=== PATIENT | female | born 1940 | race Caucasian/White ===

== ENCOUNTER 2016-09-16 | Emergency (ER) | payer MEDICARE, OTHER | END 2016-09-16 16:54 | disposition home or self-care (01) ==

== ENCOUNTER 2016-09-25 11:45 | Outpatient (CLI) | payer MEDICARE, OTHER | END 2016-09-25 11:46 | DX: J03.90 Acute tonsillitis, unspecified (principal) ==

== ENCOUNTER 2016-11-26 12:41 | Outpatient (CLI) | payer MEDICARE, OTHER | END 2016-11-26 12:42 | disposition home or self-care (01) | DX: J34.2 Deviated nasal septum (principal) ==

== ENCOUNTER 2016-11-27 10:41 | Outpatient (CLI) | payer MEDICARE, OTHER | END 2016-11-27 10:42 | disposition home or self-care (01) | DX: R60.0 Localized edema (principal); M25.572 Pain in left ankle and joints of left foot ==

== ENCOUNTER 2016-12-02 20:34 | Outpatient (CLI) | payer MEDICARE, OTHER | END 2016-12-02 20:35 | disposition home or self-care (01) | DX: R60.0 Localized edema (principal) ==

== ENCOUNTER 2016-12-11 14:57 | Outpatient (CLI) | payer MEDICARE, OTHER | END 2016-12-11 14:58 | disposition home or self-care (01) | DX: Z00.00 Encounter for general adult medical examination without abnormal findings (principal); J20.9 Acute bronchitis, unspecified; R05 Cough; Z79.899 Other long term (current) drug therapy ==

== ENCOUNTER 2016-12-12 08:05 | Outpatient (CLI) | payer MEDICARE, OTHER ==
[2016-12-12] MEDS ORDERED: IOPAMIDOL-300 100 ML VIAL IVP ONE (09:02)
== END 2016-12-12 08:06 | disposition home or self-care (01) ==
DX: J43.9 Emphysema, unspecified (principal); J98.4 Other disorders of lung
CPT/HCPCS: 71260; Q9967

== ENCOUNTER 2016-12-26 09:00 | Outpatient (CLI) | payer MEDICARE, OTHER ==
[2016-12-26] MEDS ORDERED: ALBUTEROL NEB 2.5 MG/3 ML INH ONE (09:30)
== END 2016-12-26 09:01 | disposition home or self-care (01) ==
LOC: RT 09:00
PROVIDERS: ATTEND Physician Assistant Medical
DX: J45.998 Other asthma (principal)
CPT/HCPCS: 94060; 94729; J7613

== ENCOUNTER 2017-03-03 13:48 | Outpatient (CLI) | payer MEDICARE, OTHER ==
--- NOTE | 2017-03-04 08:26 | DEXA Report ---
DEXA SCAN: 03/03/2017 CLINICAL INDICATION: Postmenopausal. TECHNIQUE: Dual energy x-ray absorptiometry (DXA) was performed on a [employer] system. Regions measured are the AP spine, femoral neck, and, if needed, forearm. COMPARISON: None. In accordance with the International Society for Clinical Densitometry (ISCD) guidelines, data from previous exams may be reanalyzed using current recommendations and techniques. This is done to allow a more accurate basis for comparison with the current study. FINDINGS: The data for the lumbar spine is as follows: REGION BMD (g/cm/cm) T-SCORE Z-SCORE L1 1.082 -0.4 0.9 L2 1.089 -0.9 0.3 L3 1.070 -1.1 0.2 L4 1.041 -1.3 -0.1 TOTAL 1.068 -0.9 0.3 NOTE: All evaluable vertebrae are used for classification. The data for the hip is as follows: REGION BMD (g/cm/cm) T-SCORE Z-SCORE Neck 0.813 -1.6 0.1 TOTAL 0.888 -1.0 0.6 NOTE: The femoral neck or total proximal femur, whichever is lowest, is used for classification. IMPRESSION: THE WHO CLASSIFICATION BASED ON THE INTERNATIONAL REFERENCE STANDARD IS OSTEOPENIA (REFERENCE LEFT FEMORAL NECK). THE FRACTURE RISK IS INCREASED. RECOMMENDATION: Patients with diagnosis of osteoporosis or osteopenia should have regular bone mineral density assessment. For those eligible for Medicare, routine testing is allowed once every 2 years. Testing frequency can be increased for patients who have rapidly progressing disease or for those who are receiving medical therapy to restore bone mass. COMMENT: World Health Organization (WHO) definitions for osteoporosis and osteopenia: NORMAL BMD: T-score at -1.0 or higher, fracture risk is low. OSTEOPENIA BMD: T-score between -1.0 and -2.5, fracture risk is increased. OSTEOPOROSIS BMD: T-score at -2.5 or lower, fracture risk high. National Osteoporosis Foundation recommends: 1. Obtain adequate dietary calcium (at least 1200 mg per day) and vitamin D (400 -800 international units per day). 2. Participate, as appropriate, in regular weightbearing and muscle- strengthening exercise. 3. Avoid tobacco use and reduce alcohol and caffeine intake. 4. For more detailed information see the website at www.NOF.org. MTDD
== END 2017-03-03 13:49 | disposition home or self-care (01) ==
LOC: DI 13:48
PROVIDERS: ATTEND Physician Assistant Medical
DX: M85.88 Other specified disorders of bone density and structure, other site (principal)
CPT/HCPCS: 77080

== ENCOUNTER 2017-03-17 16:10 | Outpatient (CLI) | payer MEDICARE, OTHER ==
[2017-03-17 13:11] LABS: CREATININE 0.6 mg/dL (0.4-1.0)
== END 2017-03-17 16:11 | disposition home or self-care (01) ==
LOC: LAB.WCP 16:10
PROVIDERS: ATTEND Family Medicine
DX: R22.9 Localized swelling, mass and lump, unspecified (principal)
CPT/HCPCS: 36415; 82565

== ENCOUNTER 2017-07-07 13:21 | Outpatient (CLI) | payer MEDICARE, OTHER ==
--- NOTE | 2017-07-09 17:43 | Mammography Report ---
DIGITAL SCREENING MAMMOGRAM: 07/07/2017 CLINICAL INDICATION: A 77-year-old with family history of breast cancer. COMPARISON: 09/2015, 11/2010, 02/2008. TECHNIQUE: Routine CC and MLO projections as well as bilateral laterally exaggerated craniocaudal vi ews were obtained of the breasts. The breasts again demonstrate heterogeneously dense fibroglandular parenchyma bilaterally. Coarse an d punctate, typically benign calcifications are present. Postoperative changes in the left breast ar e stable. No suspicious masses, clustered microcalcifications, or regions of architectural distortio n are identified. IMPRESSION: BENIGN FINDINGS. RECOMMENDATION: ROUTINE ANNUAL SCREENING UNLESS OTHERWISE CLINICALLY INDICATED. BIRADS CATEGORY: 2, BENIGN FINDINGS. STANDARD QUALIFYING STATEMENTS 1. This examination was reviewed with the aid of Computed-Aided Detection (CAD). 2. A negative or benign imaging report should not delay biopsy if clinically suspicious findings are present. Consider surgical consultation if warranted. More than 5% of cancers are not identified b y imaging. 3. Dense breasts may obscure an underlying neoplasm. JOB #: [id number] EXT JOB #:[id number]
== END 2017-07-07 13:22 | disposition home or self-care (01) ==
LOC: DI.N 13:21
PROVIDERS: ATTEND Physician Assistant Medical
DX: Z12.31 Encounter for screening mammogram for malignant neoplasm of breast (principal); Z80.3 Family history of malignant neoplasm of breast
CPT/HCPCS: 77067

== ENCOUNTER 2017-10-13 09:47 | Outpatient (CLI) | payer MEDICARE, OTHER ==
[2017-10-13 13:10] LABS: BASOPHILS % (AUTO) 0.5 %; EOSINOPHILS # (AUTO) 0.2 10^3/uL (0.0-0.7); EOSINOPHILS % (AUTO) 2.7 %; HGB - HEMOGLOBIN 13.4 g/dL (12.0-16.0); LYMPHOCYTES # (AUTO) 2.2 10^3/uL (1.5-3.5); LYMPHOCYTES % (AUTO) 30.9 %; MEAN CORPUSCULAR HGB CONC 33.6 g/dL (32.0-36.0); MEAN CORPUSCULAR VOLUME 89.1 fL (81.0-99.0); MEAN PLATELET VOLUME 9.3 fL (7.9-10.8); MONOCYTES # (AUTO) 0.7 10^3/uL (0.0-1.0); MONOCYTES % (AUTO) 9.8 %; NEUTROPHILS % (AUTO) 56.1 %; PLT - PLATELET COUNT 186 10^3/uL (130-450); RED BLOOD COUNT 4.46 10^6/uL (4.20-5.40); RED CELL DISTRIBUTION WIDTH 14.2 % (12.0-15.0); WHITE BLOOD COUNT 7.1 x10^3/uL (4.8-10.8)
[2017-10-13 13:46] LABS: ALBUMIN 3.8 g/dL (3.2-5.5); ALBUMIN/GLOBULIN RATIO 1.3 (1.0-2.2); ALKALINE PHOSPHATASE 40 IU/L (42-121); ALT ALANINE AMINOTRANSFERASE 24 IU/L (10-60); AST ASPARTATE AMINOTRANSFERASE 26 IU/L (10-42); BILIRUBIN,TOTAL 0.6 mg/dL (0.2-1.0); BUN - BLOOD UREA NITROGEN 18 mg/dL (6-20); CALCIUM 9.1 mg/dL (8.5-10.3); CARBON DIOXIDE - CO2 29 mmol/L (21-32); CHLORIDE 102 mmol/L (101-111); CHOL/HDL RATIO 3.9 (<4.4); CHOLESTEROL 147 mg/dL; CREATININE 0.6 mg/dL (0.4-1.0); GFR - MDRD 97 (>89); GLUCOSE 102 mg/dL (70-100); HDL CHOLESTEROL 38 mg/dL; LDL CHOLESTEROL,CALCULATED 81 mg/dL; LDL/HDL RATIO 2.1 (<4.4); SODIUM 137 mmol/L (135-145); TOTAL PROTEIN 6.7 g/dL (6.7-8.2); VLDL CHOLESTEROL 28 mg/dL
== END 2017-10-13 09:48 | disposition home or self-care (01) ==
LOC: LAB.WCP 09:47
PROVIDERS: ATTEND Family Medicine
DX: R07.9 Chest pain, unspecified (principal)
CPT/HCPCS: 36415; 80053; 80061; 83721; 85025

== ENCOUNTER 2017-10-23 09:57 | Outpatient (CLI) | payer MEDICARE, OTHER ==
[2017-10-23] MEDS ORDERED: REGADENOSON 0.4 MG/5 ML SYRINGE IVP ONE ×2 (10:26→12:46)
--- NOTE | 2017-10-23 16:29 | Nuclear Medicine Report ---
EXAM: NUCLEAR MEDICINE MYOCARDIAL PERFUSION STRESS AND REST EXAM DATE: 10/23/2017 01:16 PM. CLINICAL HISTORY: Chest pain, COPD. COMPARISON: None. TECHNIQUE: Patient given 8.4 mCi technetium 99m sestamibi IV for the rest portion of the study. Next, non-gated cardiac SPECT scintigraphy performed with multiplanar reformats. After an appropriate delay, patient given 0.4 mg Lexiscan IV for pharmacologic stress. Next, patient given 41.5 mCi technetium 99m sestamibi IV. Cardiac gated SPECT scintigraphy performed with multiplan ar reformats, wall motion analysis, and left ventricular ejection fraction estimation. FINDINGS: There is uniform radiopharmaceutical activity in the left ventricular myocardium on the stress images . There is some mild decreased activity in the inferior wall and anteroseptal region on the rest imag es, likely artifact. No fixed or reversible stress-related perfusion defects. Wall motion is uniform. Left ventricular ejection fraction estimated at 75%. IMPRESSION: 1. No scintigraphic evidence of inducible ischemia or infarct. 2. Left ventricular ejection fraction estimated at 75%. [facility] Referring Provider Line: [phone] SITE ID: [id number]
[2017-10-23 16:51] VITALS: BP 148/82
--- NOTE | 2017-10-24 14:36 | CARDIAC PROCEDURE NOTE ---
DATE OF SERVICE: 10/23/2017 Physician: LEYDA Samaniego PRIMARY CARE PHYSICIAN: Dr. Darlene Powell PROCEDURE: Pharmacologic cardiac stress test. PROCEDURE SYMPTOMS: Chest pain and COPD. CARDIAC RISK FACTORS INCLUDE: Age, hypertension, and former smoker. The patient has had previous cardiac procedures. CLINICAL HISTORY: A 77-year-old female without known coronary artery disease. She has no current symptoms. There were no medications held. INITIAL RESTING VITAL SIGNS: Blood pressure 148/82, heart rate 67, height 62 inches, weight 184 pounds, BMI 33.4. PROCEDURE AND FINDINGS: Patient identity and date verified, consent signed, pharmaceutical check. Pharmacologic stress testing was performed with Lexiscan at a dose of 0.4 mg over 10 seconds. The heart rate increased to 95 beats per minute from the infusion. Blood pressure response was normal during the stress procedure. The patient developed mild infusion-related symptoms, which included sensation of rapid heart rate and neck pressure. These resolved spontaneously. The resting electrocardiogram demonstrated normal sinus rhythm with no ST or T-wave changes. There was no ST-segment depression with stress. There was 1 PVC. FINAL IMPRESSIONS 1. Negative electrocardiogram for ischemia in the setting of vasodilator stress. 2. Nondiagnostic stress test for angina. 3. Single premature ventricular contraction. 4. Await myocardial perfusion report. TD: 10/23/2017 15:21 MTDD
== END 2017-10-23 09:58 | disposition home or self-care (01) ==
LOC: DI 09:57
PROVIDERS: ATTEND Family Medicine
DX: R07.9 Chest pain, unspecified (principal); J44.9 Chronic obstructive pulmonary disease, unspecified; I10 Essential (primary) hypertension; Z87.891 Personal history of nicotine dependence
CPT/HCPCS: 78452; 93017; A9500; J2785

== ENCOUNTER 2017-11-25 07:10 | Outpatient (CLI) | payer MEDICARE, OTHER ==
[2017-11-25 13:00] LABS: ALBUMIN 3.8 g/dL (3.2-5.5); ALBUMIN/GLOBULIN RATIO 1.4 (1.0-2.2); BILIRUBIN,TOTAL 0.5 mg/dL (0.2-1.0); CALCIUM 8.8 mg/dL (8.5-10.3); CREATININE 0.4 mg/dL (0.4-1.0); TOTAL PROTEIN 6.5 g/dL (6.7-8.2)
== END 2017-11-25 07:11 | disposition home or self-care (01) ==
LOC: LAB.WCP 07:10
PROVIDERS: ATTEND Family Medicine
DX: M89.9 Disorder of bone, unspecified (principal)
CPT/HCPCS: 36415; 80053

== ENCOUNTER 2018-06-18 08:32 | Outpatient (CLI) | payer MEDICARE, OTHER ==
--- NOTE | 2018-06-19 09:24 | DEXA Report ---
Reason: BONE DISORDER Procedure Date: 06/18/2018 Accession Number: [id number] / [id number] Procedure: DEX - Dexa Spine and/or Hip CPT Code: FULL RESULT: EXAM: Dexa Spine and/or Hip DATE: 06/18/2018 9:57 AM CLINICAL HISTORY: BONE DISORDER TECHNIQUE: Dual energy x-ray absorptiometry (DXA) was performed on a [employer] System. Regions measured are the AP Spine, femoral neck, and if needed forearm. COMPARISON: None. In accordance with the International Society for Clinical Densitometry (ISCD) guidelines, data from previous exams may be reanalyzed using current recommendations and techniques. This is done to allow a more accurate basis for comparison with the current study. FINDINGS: The data for the lumbar spine is as follows: BMD (g/cm/cm) T-SCORE Z-SCORE REGION L1 L2 0.985 -1.8 -0.5 L3 1.003 -1.6 -0.4 L4 0.940 -2.2 -0.9 TOTAL 0.974 -1.9 -0.6 NOTE: All evaluable vertebrae are used for classification The data for the hip is as follows: BMD (g/cm/cm) T-SCORE Z-SCORE REGION Neck 0.735 -2.2 -0.4 TOTAL 0.893 -0.9 0.6 NOTE: The femoral neck or total proximal femur, whichever is lowest, is used for classification. DXA RESULTS SUMMARY: Spine SCAN DATE AGE BMD CHANGE VS CHANGE VS PREVIOUS PREVIOUS % [birth year]18[birth year]2018 [age] 0.974 -0.090* -8.5* 03/03/2017 [age] 1[age]064 * Denotes significant change at the 95% confidence level. Denotes dissimilar scan types or analysis methods. DXA RESULTS SUMMARY: Hip SCAN DATE AGE BMD CHANGE VS CHANGE VS PREVIOUS PREVIOUS % [birth year]2018 [age] 0.893 0.005 0.6 03[birth year]03[birth year]2017 [age] 0.888 * Denotes significant change at the 95% confidence level. Denotes dissimilar scan types or analysis methods. IMPRESSION: THE WHO CLASSIFICATION BASED ON THE INTERNATIONAL REFERENCE STANDARD IS OSTEOPENIA. THE FRACTURE RISK IS INCREASED. RECOMMENDATION: Patients with diagnosis of osteoporosis or osteopenia should have regular bone mineral density assessment. For those eligible for Medicare, routine testing is allowed once every 2 years. Testing frequency can be increased for patients who have rapidly progressing disease or for those who are receiving medical therapy to restore bone mass. COMMENT: World Health Organization (WHO) definitions for osteoporosis and osteopenia: NORMAL BMD: T-score at -1.0 or higher, fracture risk is low OSTEOPENIA BMD: T-score between -1.0 and -2.5, fracture risk is increased. OSTEOPOROSIS BMD: T-score at -2.5 or lower, fracture risk is high. National Osteoporosis Foundation recommends: 1. Obtain adequate dietary calcium (at least 1200 mg per day) and vitamin D (400-800 international units per day). 2. Participate, as appropriate, in regular weightbearing and muscle-strengthening exercise. 3. Avoid tobacco use and reduce alcohol and caffeine intake. 4. For more detailed information see the website at www.NOF.org.
== END 2018-06-18 08:33 | disposition home or self-care (01) ==
LOC: DI 08:32
PROVIDERS: ATTEND Physician Assistant Medical
DX: M85.89 Other specified disorders of bone density and structure, multiple sites (principal)
CPT/HCPCS: 77080

== ENCOUNTER 2018-07-14 13:12 | Outpatient (CLI) | payer MEDICARE, OTHER ==
--- NOTE | 2018-07-15 08:25 | Mammography Report ---
Reason: SCREENING MAMMO Procedure Date: 07/14/2018 Accession Number: [id number] / [id number] Procedure: MGN - Screening Mammo Dig Bilat CPT Code: FULL RESULT: EXAM: Screening Mammo Dig Bilat DATE: 07/14/2018 1:48 PM CLINICAL HISTORY: Screening encounter. History of thoracotomy with incision extending into the left breast and axilla. Family history of breast cancer in the mother in her 60s. TECHNIQUE: Bilateral CC, laterally exaggerated CC, MLO views were obtained. COMPARISON: 07/07/2017 through 11/14/2010. FINDINGS: The breasts demonstrate heterogeneously dense fibroglandular parenchyma bilaterally. Postsurgical changes are seen in the left breast. Typically benign coarse right breast calcifications and typically benign bilateral vascular calcifications are noted. No suspicious masses, clustered microcalcifications, or regions of architectural distortion are identified. IMPRESSION: Benign findings RECOMMENDATION: Routine annual screening unless otherwise clinically indicated. BIRADS CATEGORY 2: Benign findings STANDARD QUALIFYING STATEMENTS: 1. This examination was reviewed with the aid of Computer-Aided Detection (CAD). 2. A negative or benign imaging report should not preclude biopsy if clinically suspicious findings are present. 3. Dense breasts may obscure an underlying neoplasm. 4. This examination was reviewed without the aid of 3D breast imaging (tomosynthesis).
== END 2018-07-14 13:13 | disposition home or self-care (01) ==
LOC: DI.N 13:12
DX: Z12.31 Encounter for screening mammogram for malignant neoplasm of breast (principal); Z80.3 Family history of malignant neoplasm of breast
CPT/HCPCS: 77067

== ENCOUNTER 2019-09-24 07:29 | Outpatient (CLI) | payer MEDICARE, OTHER ==
[2019-09-24 13:27] LABS: BASOPHILS % (AUTO) 0.6 %; EOSINOPHILS # (AUTO) 0.6 10^3/uL (0.0-0.7); EOSINOPHILS % (AUTO) 9.2 %; HGB - HEMOGLOBIN 13.4 g/dL (12.0-16.0); LYMPHOCYTES # (AUTO) 1.8 10^3/uL (1.5-3.5); LYMPHOCYTES % (AUTO) 28.2 %; MEAN CORPUSCULAR HEMOGLOBIN 28.6 pg (27.0-31.0); MEAN CORPUSCULAR HGB CONC 31.9 g/dL (32.0-36.0); MEAN CORPUSCULAR VOLUME 89.7 fL (81.0-99.0); MEAN PLATELET VOLUME 11.1 fL (7.9-10.8); MONOCYTES # (AUTO) 0.7 10^3/uL (0.0-1.0); MONOCYTES % (AUTO) 10.3 %; NEUTROPHILS # (AUTO) 3.3 10^3/uL (1.5-6.6); NEUTROPHILS % (AUTO) 51.2 %; PLT - PLATELET COUNT 208 10^3/uL (130-450); RED BLOOD COUNT 4.68 10^6/uL (4.20-5.40); RED CELL DISTRIBUTION WIDTH 12.9 % (12.0-15.0); WHITE BLOOD COUNT 6.5 x10^3/uL (4.8-10.8)
[2019-09-24 14:01] LABS: HB2 TOTAL 13.8 g/dL; HEMOGLOBIN A1C 0.54 g/dL; HEMOGLOBIN A1C % 5.7 % (4.6-6.2)
[2019-09-24 14:03] LABS: ALBUMIN 3.7 g/dL (3.2-5.5); ALBUMIN/GLOBULIN RATIO 1.1 (1.0-2.2); ALKALINE PHOSPHATASE 47 IU/L (42-121); ALT ALANINE AMINOTRANSFERASE 21 IU/L (10-60); AST ASPARTATE AMINOTRANSFERASE 21 IU/L (10-42); BILIRUBIN,TOTAL 0.5 mg/dL (0.2-1.0); BUN - BLOOD UREA NITROGEN 19 mg/dL (6-20); CALCIUM 9.3 mg/dL (8.5-10.3); CARBON DIOXIDE - CO2 29 mmol/L (21-32); CHLORIDE 103 mmol/L (101-111); CHOL/HDL RATIO 3.9 (<4.4); CHOLESTEROL 136 mg/dL; CREATININE 0.8 mg/dL (0.4-1.0); GFR - MDRD 69 (>89); GLUCOSE 114 mg/dL (70-100); HDL CHOLESTEROL 35 mg/dL; LDL CHOLESTEROL,CALCULATED 88 mg/dL; LDL/HDL RATIO 2.5 (<4.4); SODIUM 140 mmol/L (135-145); TOTAL PROTEIN 7.1 g/dL (6.7-8.2); VLDL CHOLESTEROL 13 mg/dL
== END 2019-09-24 23:59 | disposition home or self-care (01) ==
LOC: LAB.WCP 07:29
PROVIDERS: ATTEND Family Medicine
DX: I10 Essential (primary) hypertension (principal); E78.5 Hyperlipidemia, unspecified; E66.9 Obesity, unspecified
CPT/HCPCS: 36415; 80053; 80061; 83036; 83721; 84443; 85025

== ENCOUNTER 2019-09-28 19:57 | Outpatient (CLI) | payer MEDICARE, OTHER ==
--- NOTE | 2019-10-01 22:50 | Ultrasound Report ---
Reason: INTERMITTENT CLAUDICATION Procedure Date: 09/28/2019 Accession Number: [id number] / [id number] Procedure: US - Duplex Lwr Ext Arterial LT CPT Code: Final Report FULL RESULT: EXAM: LEFT LOWER EXTREMITY ARTERIAL DOPPLER ULTRASOUND EXAM DATE: 09/28/2019 09:00 PM. CLINICAL HISTORY: Intermittent claudication. Risk factors: Hypertension, ex-smoker, coronary artery disease and peripheral vascular disease. COMPARISON: None. TECHNIQUE: Real-time sonographic vascular imaging was performed by the foundry patternmaker, utilizing color-flow, Doppler flow, and spectral analysis. Multiple product representative static images were saved for review. FINDINGS: Calcified plaque noted. Left Leg: PHYS THER: PSV 146 cm/sec. Biphasic waveform. PSFA: PSV 166 cm/sec. Biphasic waveform. MSFA: PSV 62 cm/sec. Biphasic Waveform. DSFA: PSV 99 cm/sec. Biphasic waveform. PFA: PSV 60 cm/sec. Monophasic waveform. POP: PSV 56 cm/sec. Monophasic waveform. SHINE: PSV 62 cm/sec. Monophasic waveform. PHYS THER: PSV 36 cm/sec. Monophasic waveform. PER: PSV 46 cm/sec. Monophasic waveform. DPA: PSV 31 cm/sec. Monophasic waveform. IMPRESSION: No evidence for hemodynamically significant stenosis or occlusion. See above. [facility]
== END 2019-09-28 19:58 | disposition home or self-care (01) ==
LOC: DI 19:57
PROVIDERS: ATTEND Family Medicine
DX: I73.9 Peripheral vascular disease, unspecified (principal)

== ENCOUNTER 2019-12-23 17:08 | Emergency (ER) | payer MEDICARE, OTHER ==
--- NOTE | 2019-12-23 18:15 | ED Physician Documentation ---
PD HPI LOWER EXT INJURY - Stated complaint Stated Complaint: RT LOWER LEG SWELLING / PX - Chief complaint Chief Complaint: Ext Problem - History obtained from History obtained from: Patient (She is a chronic mild wound of the right ankle. Starting last night her lower leg became more painful causing her to lose some sleep and more red. No shortness of breath or chest pain. She has a history of DVT with , remotely.) Review of Systems Constitutional: reports: Reviewed and negative Cardiac: reports: Reviewed and negative Respiratory: reports: Reviewed and negative PD PAST MEDICAL HISTORY - Past Medical History Past Medical History: Yes Cardiovascular: Hypertension, Other Respiratory: COPD GI: GERD, Other : Incontinence HEENT: Chronic sinusitis Musculoskeletal: Osteoporosis, Chronic back pain - Past Surgical History Past Surgical History: Yes General: Other Ortho: Other HEENT: Cataracts - Present Medications Home Medications: Ambulatory Orders Medication Instructions Recorded Confirmed Acetaminophen [Tylenol Extra 500 mg PO PRN PRN 04/19/16 12/04/17 Strength] Aspirin [Aspir-Low] 81 mg PO DAILY 04/19/16 12/04/17 Spencer/D3/Mag11/Zinc/Senior Sous Chef/Jarrell/Bor 1,200 mg PO DAILY 04/19/16 12/04/17 [Caltrate 600+D Plus Tablet] Cyanocobalamin (Vitamin B-12) 1,000 mg PO DAILY 04/19/16 12/04/17 [Vitamin B-12] Multivitamin [Multivitamins] 1 tab PO DAILY 04/19/16 12/04/17 Lafe-3S/Dha/Epa/Fish Oil [Fish 1 tab PO BID 04/19/16 12/04/17 Oil 1,200 mg Softgel] atenoloL [Atenolol] 25 mg PO DAILY 04/19/16 12/04/17 hydroCHLOROthiazide [Hydrodiuril] 25 mg PO DAILY 04/19/16 12/04/17 Cephalexin [Keflex] 500 mg PO Q6H #40 capsule 12/23/19 Meloxicam 15 mg PO DAILY 12/23/19 12/23/19 Mirabegron [Myrbetriq] 25 mg DAILY 12/23/19 12/23/19 Montelukast [Singulair] 10 mg DAILY 12/23/19 12/23/19 Pantoprazole [Protonix] 40 mg PO DAILY 12/23/19 12/23/19 - Allergies Allergies/Adverse Reactions: Allergies Allergy/AdvReac Type Severity Reaction Status Date / Time Sulfa (Sulfonamide Allergy Rash Verified 12/23/19 17:17 Antibiotics) - Social History Does the pt smoke?: No Smoking Status: Never smoker Does the pt drink ETOH?: No Does the pt have substance abuse?: No PD ED PE NORMAL - Vitals Vital signs reviewed: Yes - General General: Alert and oriented X 3, No acute distress - Cardiac Cardiac: RRR, No murmur - Respiratory Respiratory: No respiratory distress, Clear bilaterally - Abdomen Abdomen: Non tender - Extremities Extremities: Other (She has what looks like cellulitis of the ankle and calf of the right leg without tenderness or significant asymmetry.) - Neuro Neuro: Alert and oriented X 3, Normal speech Results - Vitals Vitals: Vital Signs - 24 hr 12/23/19 17:14 Temperature 36.6 C Heart Rate 71 Respiratory 18 Rate Blood Pressure 197/74 H O2 Saturation 99 Oxygen O2 Source Room air - Rads (name of study) DVT sono Radiology: Prelim report reviewed (neg for DVT) Departure - Departure Disposition: 01 Home, Self Care Clinical Impression: Pain of lower extremity Qualifiers: Laterality: right Qualified Code(s): M79.604 - Pain in right leg Cellulitis Qualifiers: Site of cellulitis: extremity Site of cellulitis of extremity: lower extremity Laterality: right Qualified Code(s): L03.115 - Cellulitis of right lower limb Condition: Good Record reviewed to determine appropriate education?: Yes Instructions: Cellulitis Dc Prescriptions: Cephalexin [Keflex] 500 mg PO Q6H #40 capsule Comments: Follow-up with your doctor, either tomorrow or Friday for recheck. Return if worsening or if you run a fever. Your blood pressure was elevated today on check into the emergency department. This does not mean that you have hypertension, it is a common phenomenon to come to the emergency department and have elevated blood pressure. I recommend that you see your primary care physician within the week to have it rechecked when you are feeling better.
[2019-12-23] MEDS ORDERED: cephALEXin 250 MG CAPSULE PO STA (19:05)
--- NOTE | 2019-12-23 19:14 | Ultrasound Report ---
Reason: leg pain Procedure Date: 12/23/2019 Accession Number: [id number] / [id number] Procedure: US - Duplex Ext Veins Right CPT Code: Final Report FULL RESULT: EXAM: RIGHT LOWER EXTREMITY VENOUS ULTRASOUND EXAM DATE: 12/23/2019 06:59 PM. CLINICAL HISTORY: Leg pain. COMPARISON: None. TECHNIQUE: Real-time sonographic vascular imaging was performed by the cold saw operator through the lower extremity utilizing both color-flow and Doppler spectral analysis. Multiple associate financial representative static images were saved for review. FINDINGS: Common Femoral Vein (CFV): Normal. CFV-GSV Junction: Normal. Profunda Femoral Vein (PFV): Normal. Femoral Vein (FV) Prox: Normal. Femoral Vein (FV) Mid: Normal. Femoral Vein (FV) Dist: Normal. Popliteal Vein: Normal. Posterior Tibial Veins: Normal. Peroneal Veins: Limited assessment. Contralateral Side CFV: Normal. Other: Posterior medial knee fluid collection measuring approximately 2 x 1.3 x 0.9 cm. IMPRESSION: Limited assessment of the peroneal veins, otherwise no sonographic evidence of DVT within the right lower extremity. Posterior medial knee fluid collection measuring approximately 2 x 1.3 x 0.9 cm. [facility]
[2019-12-23 19:19] VITALS: BP 169/67
== END 2019-12-23 19:19 | disposition home or self-care (01) ==
LOC: ED 17:08
DX: L03.115 Cellulitis of right lower limb (principal); I10 Essential (primary) hypertension
CPT/HCPCS: 93971; 99283; 99284; A9270

== ENCOUNTER 2020-01-05 11:01 | Outpatient (CLI) | payer MEDICARE, OTHER ==
[2020-01-07 13:25] LABS: ALBUMIN 3.9 g/dL (3.8-4.8); ALPHA 1 GLOBULIN 0.3 g/dL (0.2-0.3); ALPHA 2 GLOBULIN 0.8 g/dL (0.5-0.9); BETA 1 GLOBULIN 0.5 g/dL (0.4-0.6); BETA 2 GLOBULIN 0.6 g/dL (0.2-0.5)
== END 2020-01-05 23:59 | disposition home or self-care (01) ==
LOC: LAB.WCP 11:01
PROVIDERS: ATTEND Family Medicine
DX: G62.9 Polyneuropathy, unspecified (principal)
CPT/HCPCS: 36415; 81599; 82570; 82607; 84155; 84156; 84165; 84166; 85651

== ENCOUNTER 2020-01-11 08:00 | Outpatient (CLI) | payer MEDICARE, OTHER ==
[2020-01-13 15:49] LABS: ALBUMIN 3.7 g/dL (3.8-4.8); ALPHA 1 GLOBULIN 0.3 g/dL (0.2-0.3); ALPHA 2 GLOBULIN 0.8 g/dL (0.5-0.9); BETA 1 GLOBULIN 0.5 g/dL (0.4-0.6); BETA 2 GLOBULIN 0.5 g/dL (0.2-0.5); GAMMA GLOBULIN 1.1 g/dL (0.8-1.7)
== END 2020-01-11 23:59 | disposition home or self-care (01) ==
LOC: LAB.WCP 08:00
PROVIDERS: ATTEND Family Medicine
DX: D47.2 Monoclonal gammopathy (principal)
CPT/HCPCS: 36415; 81599; 82784; 83883; 84155; 84165; 86334; 86335

== ENCOUNTER 2020-01-18 08:18 | Outpatient (CLI) | payer MEDICARE, OTHER ==
--- NOTE | 2020-01-18 11:54 | DEXA Report ---
Reason: POST MENOPAUSAL STATUS Procedure Date: 01/18/2020 Accession Number: [id number] / [id number] Procedure: DEX - Dexa Spine and/or Hip CPT Code: Final Report FULL RESULT: PROCEDURE: Dexa Spine and/or Hip INDICATIONS: POST MENOPAUSAL STATUS TECHNIQUE: Dual energy x-ray absorptiometry (DXA) was performed on a [employer] System. Regions measured are the AP Spine, femoral neck, and if needed forearm. COMPARISON: None. FINDINGS: Lumbar Spine: Bone Mineral Density 0.999 g/cm/cm,T score -1.5 Left Hip: Bone Mineral Density 0.924 g/cm/cm,T score -0.7 Left Femoral Neck: Bone Mineral Density 0.794 g/cm/cm, T score -1.8 (T score greater or equal to -1.0: NORMAL) (T score from -1.1 to -2.4: OSTEOPENIA) (T score less than or equal to -2.5 to: OSTEOPOROSIS) Impression: Osteopenia of the lumbar spine and the left femoral neck. Patients with diagnosis of osteoporosis or osteopenia should have regular bone mineral density assessment. For those eligible for Medicare, routine testing is allowed once every 2 years. Testing frequency can be increased for patients who have rapidly progressing disease or for those who are receiving medical therapy to restore bone mass. Reviewed by: Patricia Matamoros MD on 01/18/2020 11:52 AM PDT Approved by: Patricia Matamoros MD on 01/18/2020 11:52 AM PDT Station ID: [id number]
== END 2020-01-18 08:19 | disposition home or self-care (01) ==
LOC: DI 08:18
PROVIDERS: ATTEND Family Medicine
DX: M85.89 Other specified disorders of bone density and structure, multiple sites (principal)
CPT/HCPCS: 77080

== ENCOUNTER 2020-02-19 09:56 | Outpatient (CLI) | payer MEDICARE, OTHER ==
--- NOTE | 2020-02-19 19:21 | CT Report ---
PROCEDURE: CHEST WO INDICATIONS: CHRONIC COUGH, COPD TECHNIQUE: Noncontrast 5 mm thick sections acquired from the pulmonary apices to the posterior costophrenic angl es. 7 mm thick coronal and sagittal MIP reformats were then acquired. For radiation dose reduction, the following was used: automated exposure control, adjustment of mA and/or kV according to patient size. COMPARISON: Chest CT with contrast, 12/12/2016 FINDINGS: Image quality: Excellent. Lungs and pleura: There is moderate emphysema. Bilateral subpleural septal thickening and early pulm onary fibrosis. There is subpleural scars in lingula. No acute air space opacities. No pleural effus ions or pneumothorax. Central and peripheral airways are patent and normal in caliber. Mediastinum: Heart size is normal. No pericardial effusion. No mediastinal adenopathy by size crit eria. Thoracic aorta and central pulmonary arteries are normal in size. Esophagus is normal in minor leo. No hiatal hernia. Bones and chest wall: No suspicious bony lesions. No vertebral body compression fractures. No axil lana or supraclavicular adenopathy by size criteria. The thyroid is normal in size. Abdomen: There is a 1.9 x 1.5 cm cyst in the left hepatic lobe adjacent to the srikanth vein. Visualize d upper abdominal solid organs and bowel loops appear normal in the absence of contrast. IMPRESSION: 1. Moderate emphysema. 2. Bilateral subpleural septal thickening and early pulmonary fibrosis. 3. Subpleural scars in the lingula. Reviewed by: Manuel Goss MD on 02/19/2020 7:20 PM PDT Approved by: Manuel Goss MD on 02/19/2020 7:20 PM PDT Station ID: [id number]
== END 2020-02-19 09:57 | disposition home or self-care (01) ==
LOC: DI 09:56
PROVIDERS: ATTEND Family Medicine
DX: J43.9 Emphysema, unspecified (principal); J84.10 Pulmonary fibrosis, unspecified
CPT/HCPCS: 71250

== ENCOUNTER 2020-05-12 21:27 | Emergency (ER) | payer MEDICARE, OTHER ==
[2020-05-12 21:54] LABS: BILIRUBIN,URINE NEGATIVE (NEGATIVE); GLUCOSE, URINE (UA) NEGATIVE (NEGATIVE); KETONES,URINE (UA) NEGATIVE (NEGATIVE); LEUKOCYTE ESTERASE, URINE NEGATIVE (NEGATIVE); NITRITE,URINE NEGATIVE (NEGATIVE); OCCULT BLOOD,URINE NEGATIVE (NEGATIVE); PH,URINE 7.5 PH (5.0-7.5); PROTEIN,URINE NEGATIVE (NEGATIVE); UROBILINOGEN,URINE 0.2 (NORMAL) E.U./dL (NORMAL)
[2020-05-12 22:03] LABS: CLARITY,URINE CLEAR (CLEAR)
--- NOTE | 2020-05-12 22:09 | ED Physician Documentation ---
PD HPI BACK PAIN - Stated complaint Stated Complaint: BACK PAIN - Chief complaint Chief Complaint: Back Pain - History obtained from History obtained from: Patient - History of Present Illness Timing - onset: Today (this afternoon) Timing - duration: Hours Timing - details: Abrupt onset, Waxing and waning Pain level now: 8 Location: Lower, Other (across lower back) Quality: Pain Associated symptoms: Incontinent of urine (chronic). No: Fever, Weakness, Numbness, Unable to urinate, Incontinent of stool Improves with: Nothing Worsened by: Movement Similar symptoms before: Diagnosis (chronic back pain) Recently seen: Not recently seen - Additional information Additional information: c/o waxing and waning pain across lower back since earlier this afternoon. She had done some mild lifting earlier today while packing for an upcoming hunting trip. She says she has chronic back pain and this is similar in some ways, although significantly worse and her back pain does not typically wax and wane as it is tonight. She tried aleve and flexeril without relief. Review of Systems Constitutional: denies: Fever, Chills, Sweats Cardiac: reports: Reviewed and negative Respiratory: reports: Reviewed and negative GI: reports: Reviewed and negative : denies: Dysuria, Frequency Musculoskeletal: reports: Back pain Neurologic: denies: Focal weakness, Numbness PD PAST MEDICAL HISTORY - Past Medical History Past Medical History: Yes Cardiovascular: Hypertension, Other Respiratory: COPD Neuro: None Endocrine/Autoimmune: None GI: GERD, Other [employer] GLAZER: None : Incontinence HEENT: Chronic sinusitis Psych: None Musculoskeletal: Osteoporosis, Chronic back pain Derm: None - Past Surgical History Past Surgical History: Yes General: Other Ortho: Other HEENT: Cataracts - Present Medications Home Medications: Ambulatory Orders Medication Instructions Recorded Confirmed Acetaminophen [Tylenol Extra 500 mg PO PRN PRN 04/19/16 03/21/20 Strength] Aspirin [Aspir-Low] 81 mg PO DAILY 04/19/16 03/21/20 [place]/D3/Mag11/Zinc/Experimental Technician/Jarrell/Bor 1,200 mg PO DAILY 04/19/16 03/21/20 [Caltrate 600+D Plus Tablet] Cyanocobalamin (Vitamin B-12) 1,000 mg PO DAILY 04/19/16 03/21/20 [Vitamin B-12] Multivitamin [Multivitamins] 1 tab PO DAILY 04/19/16 03/21/20 [place]-3S/Dha/Epa/Fish Oil [Fish 1 tab PO BID 04/19/16 03/21/20 Oil 1,200 mg Softgel] atenoloL [Atenolol] 25 mg PO DAILY 04/19/16 03/21/20 hydroCHLOROthiazide [Hydrodiuril] 25 mg PO DAILY 04/19/16 03/21/20 Cephalexin [Keflex] 500 mg PO Q6H #40 capsule 12/23/19 03/21/20 Meloxicam 15 mg PO DAILY 12/23/19 03/21/20 Mirabegron [Myrbetriq] 25 mg DAILY 12/23/19 03/21/20 Montelukast [Singulair] 10 mg DAILY 12/23/19 03/21/20 Pantoprazole [Protonix] 40 mg PO DAILY 12/23/19 03/21/20 [place]/D3/Mag11/Zinc/Experimental Technician/Jarrell/Bor 1 tab PO DAILY 03/21/20 03/21/20 [Caltrate 600+D Plus Tablet] Cyanocobalamin (Vitamin B-12) 1 tab PO DAILY 03/21/20 03/21/20 [Vitamin B-12] Cyclobenzaprine [Flexeril] 10 mg PO TID PRN #20 tablet 05/13/20 Ondansetron Odt [Zofran] 4 mg TL Q6H PRN #10 tablet 05/13/20 Oxycodone HCl/Acetaminophen 1 - 2 each PO Q6H PRN #14 tablet 05/13/20 [Percocet 5-325 mg Tablet] - Allergies Allergies/Adverse Reactions: Allergies Allergy/AdvReac Type Severity Reaction Status Date / Time lidocaine Allergy Unknown Verified 05/12/20 21:41 Sulfa (Sulfonamide Allergy Rash Verified 05/12/20 21:41 Antibiotics) magalis Allergy Unknown Uncoded 03/21/20 15:32 dander Allergy Unknown Uncoded 03/21/20 15:32 - Social History Does the pt smoke?: No Smoking Status: Never smoker Does the pt drink ETOH?: No Does the pt have substance abuse?: No - Immunizations Immunizations are current?: Yes - POLST Patient has POLST: No PD ED PE NORMAL - Vitals Vital signs reviewed: Yes - General General: Alert and oriented X 3, Well developed/nourished, Other (appears to be uncomfortable, waxing and waning painful distress, frequently changing positions in an effort to get comfortable) - Cardiac Cardiac: RRR, No murmur - Respiratory Respiratory: No respiratory distress, Clear bilaterally - Abdomen Abdomen: Normal bowel sounds, Soft, Non tender, Non distended - Back Back: No CVA TTP, No spinal TTP - Derm Derm: Normal color, Warm and dry, No rash - Neuro Neuro: Alert and oriented X 3, Other (5/5 bilateral plantarflexion, 2+/4 bilateral patellar DTR without clonus) Results - Vitals Vitals: Vital Signs - 24 hr 05/12/20 05/12/20 05/12/20 21:39 22:16 22:45 Temperature 36.5 C Heart Rate 66 67 Respiratory 17 16 17 Rate Blood Pressure 164/96 H 181/85 H O2 Saturation 97 96 05/12/20 05/12/20 05/13/20 23:06 23:39 00:28 Temperature Heart Rate 62 60 Respiratory 16 16 16 Rate Blood Pressure 153/99 H 165/78 H O2 Saturation 98 98 Oxygen O2 Source Room air - Labs Labs: Laboratory Tests 05/12/20 05/12/20 05/12/20 21:35 22:43 22:43 WBC 6.8 RBC 4.49 Hgb 13.4 Hct 41.0 MCV 91.3 MCH 29.8 MCHC 32.7 RDW 13.4 Plt Count 171 MPV 10.9 H Neut # (Auto) 3.6 Lymph # (Auto) 2.2 [place] # (Auto) 0.6 Eos # (Auto) 0.3 Baso # (Auto) 0.0 Absolute Nucleated RBC 0.00 Nucleated RBC % 0.0 Sodium 140 Potassium 4.1 Chloride 104 Carbon Dioxide 28 Anion Gap 8.0 BUN 17 Creatinine 0.6 Estimated GFR (MDRD) 96 Glucose 99 Calcium 9.4 Total Bilirubin 0.8 AST 22 ALT 21 Alkaline Phosphatase 56 Total Protein 7.3 Albumin 3.9 Globulin 3.4 Albumin/Globulin Ratio 1.1 Lipase 33 Urine Color YELLOW Urine Clarity CLEAR Urine pH 7.5 Ur Specific [place] 1.020 Urine Protein NEGATIVE Urine Glucose (UA) NEGATIVE Urine Ketones NEGATIVE Urine Occult Blood NEGATIVE Urine Nitrite NEGATIVE Urine Bilirubin NEGATIVE Urine Urobilinogen 0.2 (NORMAL) Ur Leukocyte Esterase NEGATIVE Ur Microscopic Review NOT INDICATED Urine Culture Comments NOT INDICATED - Rads (name of study) CT A/P with IV contrast Radiology: Prelim report reviewed, See rad report PD MEDICAL DECISION MAKING - ED course Complexity details: reviewed results, re-evaluated patient, considered differential, d/w patient ED course: On reevaluation, patient is in NAD and reports significant improvement in symptoms, comfortable with d/c home. Results of tests d/w patient, encouraged to return if worse and follow up with PMD next available appointment Departure - Departure Disposition: , Self Care Clinical Impression: Back pain Condition: Good Instructions: ED Neck Back Pain General Follow-Up: Johnathan Powell DO [Primary Care Provider] - Within 3 Days Prescriptions: Cyclobenzaprine [Flexeril] 10 mg PO TID PRN #20 tablet PRN Reason: Spasms Oxycodone HCl/Acetaminophen [Percocet 5-325 mg Tablet] 1 - 2 each PO Q6H PRN #14 tablet PRN Reason: pain Ondansetron Odt [Zofran] 4 mg TL Q6H PRN #10 tablet PRN Reason: Nausea / Vomiting Discharge Date/Time: 05/13/20 00:41
[2020-05-12] MEDS ORDERED: oxyCODONE 5 MG TABLET PO STA (22:22)
[2020-05-12] MEDS ORDERED: ONDANSETRON ODT 4 MG TABLET TL STA (22:22)
[2020-05-12] MEDS ORDERED: ONDANSETRON 4 MG/2 ML VIAL IVP STA (22:39)
[2020-05-12] MEDS ORDERED: MORPHINE 2 MG/ML CARPUJECT IVP STA (22:39)
[2020-05-12 22:48] LABS: BASOPHILS % (AUTO) 0.4 %; EOSINOPHILS # (AUTO) 0.3 10^3/uL (0.0-0.7); EOSINOPHILS % (AUTO) 4.7 %; HGB - HEMOGLOBIN 13.4 g/dL (12.0-16.0); LYMPHOCYTES # (AUTO) 2.2 10^3/uL (1.5-3.5); LYMPHOCYTES % (AUTO) 32.5 %; MEAN CORPUSCULAR HEMOGLOBIN 29.8 pg (27.0-31.0); MEAN CORPUSCULAR HGB CONC 32.7 g/dL (32.0-36.0); MEAN CORPUSCULAR VOLUME 91.3 fL (81.0-99.0); MEAN PLATELET VOLUME 10.9 fL (7.9-10.8); MONOCYTES # (AUTO) 0.6 10^3/uL (0.0-1.0); NEUTROPHILS # (AUTO) 3.6 10^3/uL (1.5-6.6); NEUTROPHILS % (AUTO) 53.1 %; PLT - PLATELET COUNT 171 10^3/uL (130-450); RED BLOOD COUNT 4.49 10^6/uL (4.20-5.40); RED CELL DISTRIBUTION WIDTH 13.4 % (12.0-15.0); WHITE BLOOD COUNT 6.8 x10^3/uL (4.8-10.8)
[2020-05-12] MEDS ORDERED: IOVERSOL 320 100 ML VIAL IVP ONE ×2 (22:56→23:31)
[2020-05-12 23:01] LABS: ALBUMIN 3.9 g/dL (3.2-5.5); ALBUMIN/GLOBULIN RATIO 1.1 (1.0-2.2); BILIRUBIN,TOTAL 0.8 mg/dL (0.2-1.0); CALCIUM 9.4 mg/dL (8.5-10.3); CREATININE 0.6 mg/dL (0.4-1.0); TOTAL PROTEIN 7.3 g/dL (6.7-8.2)
[2020-05-13] MEDS ORDERED: oxyCODONE/ACET 5/325 Prepack 4 PO STA (00:28)
[2020-05-13 00:29] VITALS: BP 165/78
--- NOTE | 2020-05-13 11:38 | CT Report ---
PROCEDURE: Abdomen/Pelvis W INDICATIONS: abd./back pain CONTRAST: IV CONTRAST: Optiray 320 ml: 100 PO CONTRAST: *NO PO CONTRAST TECHNIQUE: After the administration of 100 mL opti 320 intravenous contrast, 5 mm thick sections acquired from t he diaphragms to the symphysis. 5 mm thick coronal and sagittal reformats were acquired. For radiat ion dose reduction, the following was used: automated exposure control, adjustment of mA and/or kV a ccording to patient size. COMPARISON: None. FINDINGS: Image quality: Excellent. ABDOMEN: Lung bases: Lung bases are clear. Heart size is normal. Calcification of mitral valve annulus. Solid organs: Liver and spleen are normal in size and enhancement. 1.9 cm simple fluid density cysts in the liver. Gallbladder is unremarkable. Biliary system is non dilated. Pancreas enhances normal ly. No adrenal nodules. Kidneys demonstrate normal size and enhancement, without hydronephrosis. Peritoneum and bowel: Bowel loops demonstrate normal wall thickness and caliber. Diverticulosis of t he sigmoid colon. No free fluid or air. Nodes and vessels: No retroperitoneal or mesenteric adenopathy by size criteria. Aorta and inferior vena cava are normal in size. Vascular calcification the aorta and its branches. Miscellaneous: No ventral hernias. PELVIS: Genitourinary: Bladder wall thickness is normal. Miscellaneous: No inguinal hernias or adenopathy. Bones: No suspicious bony lesions. No vertebral body compression fractures. 5 mm anterolisthesis, grade 1, of L5 on S1. Multilevel lumbar spondylosis. IMPRESSION: No acute intra-abdominal abnormality. Diverticulosis of the sigmoid colon. 5 mm grade 1 anterolisthesis of L5 on S1. This may be related to facet arthrosis. No significant discrepancy between the preliminary and final reports. Reviewed by: Davie Wu on 05/13/2020 10:37 AM JETT Approved by: Davie Wu on 05/13/2020 10:37 AM JETT Station ID: [id number]
== END 2020-05-13 00:41 | disposition home or self-care (01) ==
LOC: ED 21:27
DX: M54.5 Low back pain (principal); G89.29 Other chronic pain; I10 Essential (primary) hypertension; Z79.82 Long term (current) use of aspirin
CPT/HCPCS: 36415; 74177; 80053; 81003; 83690; 85025; 96374; 99284; Q9967; 81001; 87086

== ENCOUNTER 2021-02-15 18:43 | Emergency (ER) | payer MEDICARE, OTHER ==
[2021-02-15] MEDS ORDERED: DIPHENOX/ATROPINE 2.5/0.025 MG TABLET PO STA ×2 (19:00→20:32)
--- NOTE | 2021-02-15 19:01 | ED Physician Documentation ---
History of Present Illness - Stated complaint Stated Complaint: DIARRHEA - Chief complaint Chief Complaint: Abd Pain - History obtained from History obtained from: Patient - Additonal information Additional information: 80-year-old woman with history of asthma presents with diarrhea that she initially said started 3 days ago, then 2 days ago, then specifically stated it started suddenly at 10 AM yesterday. It is profuse, watery. No blood. No sick contacts, recent travel, camping or antibiotic use. She had a low-grade fever of 99.2. Review of Systems Ten Systems: 10 systems reviewed and negative Constitutional: reports: Fever, Chills GI: reports: Diarrhea. 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 : Incontinence HEENT: Chronic sinusitis Psych: None Musculoskeletal: Osteoporosis, Chronic back pain Derm: None - Past Surgical History Past Surgical History: Yes General: Other Ortho: Other HEENT: Cataracts - Present Medications Home Medications: Ambulatory Orders Medication Instructions Recorded Confirmed Acetaminophen [Tylenol Extra 500 mg PO PRN PRN 04/19/16 02/15/21 Strength] Aspirin [Aspir-Low] 81 mg PO DAILY 04/19/16 02/15/21 [place]/D3/Mag11/Zinc/Software Support Representative/Jarrell/Bor 1,200 mg PO DAILY 04/19/16 02/15/21 [Caltrate 600+D Plus Tablet] Cyanocobalamin (Vitamin B-12) 1,000 mg PO DAILY 04/19/16 02/15/21 [Vitamin B-12] Multivitamin [Multivitamins] 1 tab PO DAILY 04/19/16 02/15/21 [place]-3S/Dha/Epa/Fish Oil [Fish 1 tab PO BID 04/19/16 02/15/21 Oil 1,200 mg Softgel] atenoloL [Atenolol] 25 mg PO DAILY 04/19/16 02/15/21 hydroCHLOROthiazide [Hydrodiuril] 25 mg PO DAILY 04/19/16 02/15/21 Meloxicam 15 mg PO DAILY PRN 12/23/19 02/15/21 Mirabegron [Myrbetriq] 25 mg DAILY 12/23/19 02/15/21 Montelukast [Singulair] 10 mg DAILY 12/23/19 02/15/21 Pantoprazole [Protonix] 40 mg PO DAILY 12/23/19 02/15/21 Albuterol Sulfate [Proair 1 puffs INH Q4HR PRN 02/15/21 02/15/21 Respiclick] Azithromycin [Zithromax] 2 tab PO DAILY #4 tablet 02/15/21 Benzonatate [Tessalon] 100 mg PO TID 02/15/21 02/15/21 Cetirizine [ZyrTEC] 10 mg PO DAILY 02/15/21 02/15/21 Diphenoxylate/Atropine [Lomotil] 1 each PO QID PRN #20 tab 02/15/21 Fluticasone Furoate [Arnuity 1 puffs INH DAILY 02/15/21 02/15/21 Ellipta] Nortriptyline [Pamelor] 10 mg PO DAILY PRN 02/15/21 02/15/21 Tiotropium [place] [Spiriva] 1 puffs INH DAILY 02/15/21 02/15/21 - Allergies Allergies/Adverse Reactions: Allergies Allergy/AdvReac Type Severity Reaction Status Date / Time lidocaine Allergy Unknown Verified 02/15/21 18:50 Sulfa (Sulfonamide Allergy Rash Verified 02/15/21 18:50 Antibiotics) magalis Allergy Unknown Uncoded 02/15/21 18:50 dander Allergy Unknown Uncoded 02/15/21 18:50 - Social History Does the pt smoke?: No Smoking Status: Never smoker Does the pt drink ETOH?: No Does the pt have substance abuse?: No - Immunizations Immunizations are current?: Yes - POLST Patient has POLST: No PD ED PE NORMAL - Vitals Vital signs reviewed: Yes - General General: Alert and oriented X 3, No acute distress - Respiratory Respiratory: No respiratory distress - Abdomen Abdomen: Normal bowel sounds, Soft, Non tender - Neuro Neuro: Alert and oriented X 3, Normal speech Results - Vitals Vitals: Vital Signs - 24 hr 02/15/21 02/15/21 18:48 18:50 Temperature 36.5 C 36.6 C Heart Rate 95 92 Respiratory 16 16 Rate Blood Pressure 143/113 H 142/99 H O2 Saturation 93 95 Oxygen O2 Source Room air - Labs Labs: Laboratory Tests 02/15/21 02/15/21 19:28 19:28 WBC 14.8 H RBC 4.97 Hgb 15.1 Hct 44.6 MCV 89.7 MCH 30.4 MCHC 33.9 RDW 13.1 Plt Count 146 MPV 10.7 Neut # (Auto) 12.4 H Lymph # (Auto) 1.2 L [place] # (Auto) 1.1 H Eos # (Auto) 0.0 Baso # (Auto) 0.1 Absolute Nucleated RBC 0.00 Nucleated RBC % 0.0 Sodium 130 L Potassium 2.8 L Chloride 95 L Carbon Dioxide 22 Anion Gap 13.0 BUN 16 Creatinine 0.9 Estimated GFR (MDRD) 60 L Glucose 136 H Calcium 8.8 Total Bilirubin 1.1 H AST 20 ALT 22 Alkaline Phosphatase 46 Total Protein 7.4 Albumin 3.8 Globulin 3.6 Albumin/Globulin Ratio 1.1 Lipase 16 L PD MEDICAL DECISION MAKING - ED course ED course: 80-year-old woman who probably has bacterial enteritis by history and labs. She is treated with Zithromax here. She got good relief with some IV fluids and Lomotil. Potassium was repleted orally. A stool culture was obtained and pending on discharge. Departure - Departure Disposition: 01 Home, Self Care Clinical Impression: Enteritis Condition: Good Record reviewed to determine appropriate education?: Yes Instructions: ED Gastroenteritis Report Pend Prescriptions: Diphenoxylate/Atropine [Lomotil] 1 each PO QID PRN #20 tab PRN Reason: Diarrhea Azithromycin [Zithromax] 2 tab PO DAILY #4 tablet Comments: As discussed it seems likely that she probably have a bacterial enteritis, we are culturing your stool and if the causative agent is found we will call you. In the meantime I am starting some antibiotics and Lomotil as needed for diarrhea. Drink plenty of fluids. Return for new or worsening symptoms, or if not better in the next 24 hours.
[2021-02-15] MEDS ORDERED: SODIUM CHLORIDE 0.9% 1,000 ML IV STA (19:13)
[2021-02-15 19:35] LABS: BASOPHILS # (AUTO) 0.1 10^3/uL (0.0-0.1); BASOPHILS % (AUTO) 0.3 %; EOSINOPHILS % (AUTO) 0.1 %; HCT - HEMATOCRIT 44.6 % (37.0-47.0); HGB - HEMOGLOBIN 15.1 g/dL (12.0-16.0); LYMPHOCYTES # (AUTO) 1.2 10^3/uL (1.5-3.5); LYMPHOCYTES % (AUTO) 7.8 %; MEAN CORPUSCULAR HEMOGLOBIN 30.4 pg (27.0-31.0); MEAN CORPUSCULAR HGB CONC 33.9 g/dL (32.0-36.0); MEAN CORPUSCULAR VOLUME 89.7 fL (81.0-99.0); MEAN PLATELET VOLUME 10.7 fL (7.9-10.8); MONOCYTES # (AUTO) 1.1 10^3/uL (0.0-1.0); MONOCYTES % (AUTO) 7.2 %; NEUTROPHILS # (AUTO) 12.4 10^3/uL (1.5-6.6); NEUTROPHILS % (AUTO) 83.9 %; PLT - PLATELET COUNT 146 10^3/uL (130-450); RED BLOOD COUNT 4.97 10^6/uL (4.20-5.40); RED CELL DISTRIBUTION WIDTH 13.1 % (12.0-15.0); WHITE BLOOD COUNT 14.8 x10^3/uL (4.8-10.8)
[2021-02-15 19:44] LABS: ALBUMIN 3.8 g/dL (3.2-5.5); ALBUMIN/GLOBULIN RATIO 1.1 (1.0-2.2); BILIRUBIN,TOTAL 1.1 mg/dL (0.2-1.0); CALCIUM 8.8 mg/dL (8.5-10.3); CREATININE 0.9 mg/dL (0.4-1.0); POTASSIUM 2.8 mmol/L (3.5-5.0); TOTAL PROTEIN 7.4 g/dL (6.7-8.2)
[2021-02-15] MEDS ORDERED: POTASSIUM CHLORIDE 20 MEQ TABLET PO STA (20:16)
[2021-02-15] MEDS ORDERED: AZITHROMYCIN 250 MG TABLET PO STA (20:32)
[2021-02-15 20:55] VITALS: BP 135/89
== END 2021-02-15 20:54 | disposition home or self-care (01) ==
LOC: ED 18:43
DX: K52.9 Noninfective gastroenteritis and colitis, unspecified (principal); I10 Essential (primary) hypertension; J44.9 Chronic obstructive pulmonary disease, unspecified; Z79.82 Long term (current) use of aspirin
CPT/HCPCS: 36415; 80053; 81599; 83690; 85025; 96360; 99283; A9270; 87045; 87046; 87077; 87427

== ENCOUNTER 2021-03-14 08:00 | Outpatient (CLI) | payer MEDICARE, OTHER ==
[2021-03-14 17:47] LABS: BASOPHILS # (AUTO) 0.1 10^3/uL (0.0-0.1); BASOPHILS % (AUTO) 0.8 %; EOSINOPHILS # (AUTO) 0.4 10^3/uL (0.0-0.7); EOSINOPHILS % (AUTO) 5.2 %; HCT - HEMATOCRIT 41.8 % (37.0-47.0); HGB - HEMOGLOBIN 13.4 g/dL (12.0-16.0); LYMPHOCYTES # (AUTO) 2.1 10^3/uL (1.5-3.5); LYMPHOCYTES % (AUTO) 26.2 %; MEAN CORPUSCULAR HEMOGLOBIN 29.6 pg (27.0-31.0); MEAN CORPUSCULAR HGB CONC 32.1 g/dL (32.0-36.0); MEAN CORPUSCULAR VOLUME 92.3 fL (81.0-99.0); MEAN PLATELET VOLUME 11.7 fL (7.9-10.8); MONOCYTES # (AUTO) 0.9 10^3/uL (0.0-1.0); NEUTROPHILS # (AUTO) 4.4 10^3/uL (1.5-6.6); NEUTROPHILS % (AUTO) 56.4 %; PLT - PLATELET COUNT 179 10^3/uL (130-450); RED BLOOD COUNT 4.53 10^6/uL (4.20-5.40); RED CELL DISTRIBUTION WIDTH 13.9 % (12.0-15.0); WHITE BLOOD COUNT 7.8 x10^3/uL (4.8-10.8)
[2021-03-14 17:56] LABS: ALBUMIN 3.9 g/dL (3.2-5.5); ALBUMIN/GLOBULIN RATIO 1.1 (1.0-2.2); ALKALINE PHOSPHATASE 48 IU/L (42-121); ALT ALANINE AMINOTRANSFERASE 23 IU/L (10-60); AST ASPARTATE AMINOTRANSFERASE 19 IU/L (10-42); BILIRUBIN,TOTAL 0.6 mg/dL (0.2-1.0); BUN - BLOOD UREA NITROGEN 21 mg/dL (6-20); CALCIUM 9.5 mg/dL (8.5-10.3); CARBON DIOXIDE - CO2 26 mmol/L (21-32); CHLORIDE 102 mmol/L (101-111); CHOL/HDL RATIO 3.8 (<4.4); CHOLESTEROL 141 mg/dL; CREATININE 0.6 mg/dL (0.4-1.0); GFR - MDRD 96 (>89); GLUCOSE 100 mg/dL (70-100); HDL CHOLESTEROL 37 mg/dL; LDL CHOLESTEROL,CALCULATED 78 mg/dL; LDL/HDL RATIO 2.1 (<4.4); POTASSIUM 3.9 mmol/L (3.5-5.0); SODIUM 138 mmol/L (135-145); TOTAL PROTEIN 7.4 g/dL (6.7-8.2); TRIGLYCERIDES 131 mg/dL; VLDL CHOLESTEROL 26 mg/dL
[2021-03-14 18:04] LABS: THYROID STIMULATING HORMONE 2.74 uIU/mL (0.34-5.60)
[2021-03-14 20:25] LABS: ESTIMATED AVERAGE GLUCOSE 126 mg/dL (70-100)
[2021-03-16 10:22] LABS: IMMUNOGLOBULIN A 370 mg/dL (70-320); IMMUNOGLOBULIN G 998 mg/dL (600-1540); IMMUNOGLOBULIN M 48 mg/dL (50-300)
== END 2021-03-14 23:59 | disposition home or self-care (01) ==
LOC: LAB.WCP 08:00
PROVIDERS: ATTEND Family Medicine
DX: I10 Essential (primary) hypertension (principal); E78.5 Hyperlipidemia, unspecified; B96.89 Other specified bacterial agents as the cause of diseases classified elsewhere; R73.01 Impaired fasting glucose
CPT/HCPCS: 36415; 80053; 80061; 82784; 83036; 83721; 84443; 85025

== ENCOUNTER 2021-09-13 12:59 | Outpatient (CLI) | payer MEDICARE, OTHER ==
--- NOTE | 2021-09-13 16:56 | XRAY Report ---
PROCEDURE: Hand 3 View LT INDICATIONS: THUMB PAIN, LEFT TECHNIQUE: 3 views of the hand(s) acquired. COMPARISON: None FINDINGS: Bones: No fractures or dislocations. No suspicious bony lesions. Periarticular osteophyte formatio n at the first carpometacarpal joint, as well as the interphalangeal joints of the digits. Soft tissues: No suspicious soft tissue calcifications. IMPRESSION: Osteoarthritis. No acute fracture. No osseous lesion. If symptoms and/or clinical suspicion for patho logy continue, further assessment with repeat plain films, or advanced imaging (e.g., CT, MRI, or bon e scan) is recommended for further assessment. Reviewed by: Sarah Call MD on 09/13/2021 4:55 PM PST Approved by: Sarah Call MD on 09/13/2021 4:55 PM PST Station ID: [id number]
== END 2021-09-13 13:00 | disposition home or self-care (01) ==
LOC: DI.N 12:59
PROVIDERS: ATTEND Family Medicine
DX: M18.12 Unilateral primary osteoarthritis of first carpometacarpal joint, left hand (principal); M19.042 Primary osteoarthritis, left hand

== ENCOUNTER 2022-08-06 18:43 | Outpatient (CLI) | payer MEDICARE, OTHER ==
--- NOTE | 2022-08-06 20:50 | Ultrasound Report ---
PROCEDURE: Duplex Ext Veins Right INDICATIONS: LEG EDEMA RIGHT TECHNIQUE: Real-time imaging, as well as color and pulse Doppler interrogation, were performed of the lower extr emity deep veins from the inguinal ligament to the popliteal fossa. COMPARISON: None. FINDINGS: The deep veins are normally compressible, and free of intraluminal thrombus. Color and pu lse Doppler demonstrate normal phasic intraluminal flow. There is normal augmentation response to di stal compression maneuver. A possible small fluid collection at the medial popliteal fossa is seen measuring up to 1.9 cm in max imum dimension that could represent a small Hylton's cyst. IMPRESSION: 1.No sonographic evidence of deep venous thrombosis in the right lower extremity. 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 Reviewed by: Yimi Cleary MD on 08/06/2022 8:48 PM PST Approved by: iYmi Cleary MD on 08/06/2022 8:48 PM PST Station ID: [id number]
== END 2022-08-06 18:44 | disposition home or self-care (01) ==
LOC: DI 18:43
PROVIDERS: ATTEND Physician Assistant Medical
DX: R60.0 Localized edema (principal)

== ENCOUNTER 2022-08-23 09:38 | Outpatient (CLI) | payer MEDICARE, OTHER ==
[2022-08-23 12:13] LABS: BASOPHILS # (AUTO) 0.1 10^3/uL (0.0-0.1); BASOPHILS % (AUTO) 0.7 %; EOSINOPHILS # (AUTO) 0.5 10^3/uL (0.0-0.7); EOSINOPHILS % (AUTO) 6.8 %; HCT - HEMATOCRIT 40.2 % (37.0-47.0); LYMPHOCYTES # (AUTO) 1.6 10^3/uL (1.5-3.5); LYMPHOCYTES % (AUTO) 22.6 %; MEAN CORPUSCULAR HGB CONC 32.3 g/dL (32.0-36.0); MEAN CORPUSCULAR VOLUME 89.5 fL (81.0-99.0); MEAN PLATELET VOLUME 11.2 fL (7.9-10.8); MONOCYTES # (AUTO) 0.7 10^3/uL (0.0-1.0); MONOCYTES % (AUTO) 9.6 %; NEUTROPHILS # (AUTO) 4.3 10^3/uL (1.5-6.6); PLT - PLATELET COUNT 194 10^3/uL (130-450); RED BLOOD COUNT 4.49 10^6/uL (4.20-5.40); RED CELL DISTRIBUTION WIDTH 13.5 % (12.0-15.0); WHITE BLOOD COUNT 7.2 x10^3/uL (4.8-10.8)
[2022-08-23 13:14] LABS: ALBUMIN 3.6 g/dL (3.2-5.5); ALKALINE PHOSPHATASE 51 IU/L (42-121); ALT ALANINE AMINOTRANSFERASE 22 IU/L (10-60); AST ASPARTATE AMINOTRANSFERASE 29 IU/L (10-42); BILIRUBIN,TOTAL 0.9 mg/dL (0.2-1.0); BUN - BLOOD UREA NITROGEN 21 mg/dL (6-20); CALCIUM 9.4 mg/dL (8.5-10.3); CARBON DIOXIDE - CO2 28 mmol/L (21-32); CHLORIDE 102 mmol/L (101-111); CHOLESTEROL 148 mg/dL; CREATININE 0.6 mg/dL (0.4-1.0); GFR - MDRD 95 (>89); GLUCOSE 124 mg/dL (70-100); HDL CHOLESTEROL 37 mg/dL; LDL CHOLESTEROL,CALCULATED 95 mg/dL; LDL/HDL RATIO 2.6 (<4.4); POTASSIUM 3.9 mmol/L (3.5-5.0); SODIUM 138 mmol/L (135-145); TOTAL PROTEIN 7.2 g/dL (6.7-8.2); TRIGLYCERIDES 82 mg/dL; VLDL CHOLESTEROL 16 mg/dL
[2022-08-23 13:26] LABS: THYROID STIMULATING HORMONE 4.2 uIU/mL (0.34-5.60)
[2022-08-23 14:21] LABS: ESTIMATED AVERAGE GLUCOSE 126 mg/dL (70-100)
== END 2022-08-23 09:39 | disposition home or self-care (01) ==
LOC: LAB.N 09:38
PROVIDERS: ATTEND Nurse Practitioner Family
DX: I10 Essential (primary) hypertension (principal); E78.5 Hyperlipidemia, unspecified; Z13.1 Encounter for screening for diabetes mellitus
CPT/HCPCS: 36415; 80053; 80061; 83036; 83721; 84443; 85025

== ENCOUNTER 2022-09-04 14:50 | Emergency (ER) | payer MEDICARE, OTHER ==
--- OUTSIDE RECORDS SUMMARY | 2022-09-04 15:02 | EXTERNAL MEDICAL SUMMARY RPT | Continuity of Care Document ---
:1940 Author Organization [facility] Address [address] [place] [address] Phone Care Team Providers Name Role Phone Johnathan Powell Unavailable Unavailable Allergies and Intolerances date description facility type (no date) Located Within [facility] (unknown) Encounters No information. Functional Status No information. Immunizations No information. Medications No information. Problems date description facility 2022-08-01 12:15 [facility] 2022-08-01 14:19 [facility] 2022-08-06 13:43 [facility] 2022-08-08 10:28 [facility] 2022-09-03 12:14 Sacrococcygeal disorders, not elsewhere [facility] classified Procedures date description facility 2022-08-01 00:00 XR cervical spine, 4 views [facility] Results/Labs test date author facility value unit interpret ation Result panel 1 (unknown) (no (unknown) (unknown) (no value) (units (unk nown) date) unknown) (unknown) (no (unknown) (unknown) (1) Obstructive (units (unknown) date) sleep apnea of unknown) adult: (unknown) (no (unknown) (unknown) (2) Snoring: (units (u nknown) date) unknown) (unknown) (no (unknown) (unknown) (denied) (units (unkno wn) date) unknown) (unknown) (no (unknown) (unknown) 07/22/22 (units (unkno wn) date) unknown) (unknown) (no (unknown) (unknown) (units (unkno wn) date) unknown) (unknown) (no (unknown) (unknown) Affect: normal (units (unknown) date) affect unknown) (unknown) (no (unknown) (unknown) Age/Sex: 82 / F (units (unknown) date) Date of Service: unknown) (unknown) (no (unknown) (unknown) Allergic rhinitis (units (unknown) date) unknown) (unknown) (no (unknown) (unknown) Allergies (units (unkn own) date) unknown) (unknown) (no (unknown) (unknown) [place], [place] (units ( unknown) date) [id number] unknown) (unknown) (no (unknown) (unknown) Appearance: (units (un known) date) grossly normal unknown) (unknown) (no (unknown) (unknown) Assessment + Plan (units (unknown) date) unknown) (unknown) (no (unknown) (unknown) Assessment and (units (unknown) date) Plan: unknown) (unknown) (no (unknown) (unknown) Attending Dr: (units ( unknown) date) Omar Kim MD unknown) (unknown) (no (unknown) (unknown) Attitude: (units (unkn own) date) cooperative unknown) (unknown) (no (unknown) (unknown) COPD with asthma (units (unknown) date) unknown) (unknown) (no (unknown) (unknown) CPAP (6-12 cwp) (units (unknown) date) unknown) (unknown) (no (unknown) (unknown) CTS (carpal (units (un known) date) tunnel syndrome) unknown) (unknown) (no (unknown) (unknown) Cardiac (units (unkno wn) date) unknown) (unknown) (no (unknown) (unknown) Chief Complaint: (units (unknown) date) Patient is here to unknown) follow up on her CPAP therapy. (unknown) (no (unknown) (unknown) Chronic low back (units (unknown) date) pain unknown) (unknown) (no (unknown) (unknown) Clinical Course (units (unknown) date) unknown) (unknown) (no (unknown) (unknown) Cognition: normal (units (unknown) date) cognition unknown) (unknown) (no (unknown) (unknown) Compliance check (units (unknown) date) 2 weeks unknown) (unknown) (no (unknown) (unknown) Condition is (units (u nknown) date) Onset: Chronic and unknown) ongoing condition (unknown) (no (unknown) (unknown) Conjunctivae: (units ( unknown) date) conjunctivae unknown) normal (unknown) (no (unknown) (unknown) Const (units (unkno wn) date) unknown) (unknown) (no (unknown) (unknown) 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 unknown) (unknown) (no (unknown) (unknown) : 1940 (units (unknown) date) Acct:[id number] unknown) (unknown) (no (unknown) (unknown) Denies chest pain (units (unknown) date) or nocturnal unknown) palpitations (unknown) (no (unknown) (unknown) Denies (units (unkno wn) date) depression, unknown) anxiety, napping, hypnagogic hallucinations or sleep (unknown) (no (unknown) (unknown) Denies epistaxis (units (unknown) date) or sore throat in unknown) the morning (unknown) (no (unknown) (unknown) Denies morning (units (unknown) date) headache, dizzy in unknown) the morning, vertigo or trouble concentrating (unknown) (no (unknown) (unknown) Denies myalgia (units (unknown) date) interfering with unknown) sleep, arthralgia interfering with sleep, (unknown) (no (unknown) (unknown) Denies nocturia (units (unknown) date) unknown) (unknown) (no (unknown) (unknown) Denies reflux (units ( unknown) date) pain at night or unknown) bloating on CPAP (unknown) (no (unknown) (unknown) Denies snoring (units (unknown) date) and Denies stops unknown) breathing during sleep (unknown) (no (unknown) (unknown) Dept at (units (unkno wn) date) . unknown) (unknown) (no (unknown) (unknown) Details: (units (unkno wn) date) unknown) (unknown) (no (unknown) (unknown) Documented By: (units (unknown) date) Omar Kim MD unknown) 07/22/22 1325 (unknown) (no (unknown) (unknown) Draft (units (unkno wn) date) unknown) (unknown) (no (unknown) (unknown) ENT (units (unkno wn) date) unknown) (unknown) (no (unknown) (unknown) Ears: hearing (units ( unknown) date) grossly normal unknown) bilaterally (unknown) (no (unknown) (unknown) Effort + (units (unkno wn) date) Inspection: normal unknown) respiratory effort, able to speak in complete (unknown) (no (unknown) (unknown) Exam Narrative (units (unknown) date) unknown) (unknown) (no (unknown) (unknown) Exam Narrative: (units (unknown) date) unknown) (unknown) (no (unknown) (unknown) Exam (units (unkno wn) date) unknown) (unknown) (no (unknown) (unknown) Eyes (units (unkno wn) date) unknown) (unknown) (no (unknown) (unknown) Facet (units (unkno wn) date) arthropathy, unknown) lumbar (unknown) (no (unknown) (unknown) GERD (units (unkno wn) date) (gastroesophageal unknown) reflux disease) (unknown) (no (unknown) (unknown) GI (units (unkno wn) date) unknown) (unknown) (no (unknown) (unknown) (units (unkno wn) date) unknown) (unknown) (no (unknown) (unknown) General: (units (unkno wn) date) cooperative and no unknown) acute distress (unknown) (no (unknown) (unknown) General: patient (units (unknown) date) alert, patient unknown) awake and patient oriented x3 (unknown) (no (unknown) (unknown) HENMT (units (unkno wn) date) unknown) (unknown) (no (unknown) (unknown) HPI Sleep Follow (units (unknown) date) Up unknown) (unknown) (no (unknown) (unknown) HPI (units (unkno wn) date) unknown) (unknown) (no (unknown) (unknown) Hand paresthesia (units (unknown) date) unknown) (unknown) (no (unknown) (unknown) Head: normal to (units (unknown) date) inspection unknown) (unknown) (no (unknown) (unknown) Her sleep study (units (unknown) date) showed mild sleep unknown) apnea for which she was started on nasal CPAP (unknown) (no (unknown) (unknown) History of (units (unk nown) date) thoracotomy unknown) (unknown) (no (unknown) (unknown) Hypertension (units (u nknown) date) unknown) (unknown) (no (unknown) (unknown) [place] (units (unkn own) date) [place] [facility] [place] with a many-year history of (unknown) (no (unknown) (unknown) Intake (units (unkno wn) date) unknown) (unknown) (no (unknown) (unknown) Loc: SLEEP (units (unk nown) date) unknown) (unknown) (no (unknown) (unknown) Medical History (units (unknown) date) (Reviewed 07/22/22 unknown) @ 13:26 by Omar Kim MD) (unknown) (no (unknown) (unknown) Mental Status: (units (unknown) date) mental status unknown) grossly normal (unknown) (no (unknown) (unknown) Mood: congruent (units (unknown) date) mood unknown) (unknown) (no (unknown) (unknown) Musc (units (unkno wn) date) unknown) (unknown) (no (unknown) (unknown) Neck (units (unkno wn) date) unknown) (unknown) (no (unknown) (unknown) Neck: normal (units (u nknown) date) visual inspection unknown) (unknown) (no (unknown) (unknown) Neuro (units (unkno wn) date) unknown) (unknown) (no (unknown) (unknown) Neurological (units (u nknown) date) unknown) (unknown) (no (unknown) (unknown) Nutritional (units (un known) date) Appearance: obese unknown) (unknown) (no (unknown) (unknown) Obesity (BMI (units (u nknown) date) 30.0-34.9) unknown) (unknown) (no (unknown) (unknown) Obstructive sleep (units (unknown) date) apnea of adult unknown) () (unknown) (no (unknown) (unknown) PFSH (units (unkno wn) date) unknown) (unknown) (no (unknown) (unknown) Patient has a (units ( unknown) date) history of chronic unknown) snoring. Positional therapy and the use of (unknown) (no (unknown) (unknown) Patient reports a (units (unknown) date) history of snoring unknown) and a disturbed sleep pattern. There is (unknown) (no (unknown) (unknown) Patient reports (units (unknown) date) difficulty falling unknown) asleep is denied, difficulty staying asleep (unknown) (no (unknown) (unknown) Patient was (units (un known) date) encouraged to unknown) continue PAP therapy at 7-14 cwp. (unknown) (no (unknown) (unknown) Patient was (units (un known) date) encouraged to unknown) increase CPAP usage to a minimum of 4 hours a night, (unknown) (no (unknown) (unknown) Patient was (units (un known) date) instructed to unknown) return sooner if any questions or concerns arise. (unknown) (no (unknown) (unknown) Patient's (units (unkn own) date) compliance data unknown) over 90 days is 93.3% with 65.6% over 4 hours a night (unknown) (no (unknown) (unknown) Patient: (units (unkno wn) date) Aide Simmons MR#: unknown) [id number] (unknown) (no (unknown) (unknown) Pertinent (units (unkn own) date) Positives/Negative unknown) s (unknown) (no (unknown) (unknown) Plan (units (unkno wn) date) unknown) (unknown) (no (unknown) (unknown) Positional (units (unk nown) date) therapy as needed. unknown) (unknown) (no (unknown) (unknown) Psych (units (unkno wn) date) unknown) (unknown) (no (unknown) (unknown) Psychological (units ( unknown) date) unknown) (unknown) (no (unknown) (unknown) ROS Sleep (units (unkn own) date) unknown) (unknown) (no (unknown) (unknown) Reason For Visit (units (unknown) date) unknown) (unknown) (no (unknown) (unknown) Reports cough (units ( unknown) date) (intermittent, unknown) which she associates with allergies, sinus (unknown) (no (unknown) (unknown) Reports runny (units ( unknown) date) nose, nasal unknown) congestion at night and dry mouth in the morning; (unknown) (no (unknown) (unknown) Reports seasonal (units (unknown) date) allergies; Denies unknown) itchy eyes, redness, blurry vision or eye (unknown) (no (unknown) (unknown) Resp (units (unkno wn) date) unknown) (unknown) (no (unknown) (unknown) Respiratory (units (un known) date) unknown) (unknown) (no (unknown) (unknown) Return visit in 6 (units (unknown) date) months to assess unknown) continued response to PAP therapy (unknown) (no (unknown) (unknown) Sclera: sclerae (units (unknown) date) normal unknown) (unknown) (no (unknown) (unknown) She is currently (units (unknown) date) on nasal CPAP at unknown) 6-12 cwp and has a normal AHIflow. She reports (unknown) (no (unknown) (unknown) She is using her (units (unknown) date) machine regularly unknown) and her AHIflow is optimal. She reports no (unknown) (no (unknown) (unknown) Signed By: (units (unk nown) date) unknown) (unknown) (no (unknown) (unknown) Sleep Schedule (units (unknown) date) Branch: unknown) consistent, daytime somnolence absent, snoring not (unknown) (no (unknown) (unknown) Sleep Visit (units (un known) date) unknown) (unknown) (no (unknown) (unknown) [facility] unknown) (unknown) (no (unknown) (unknown) Smoking Status: (units (unknown) date) Former smoker unknown) (unknown) (no (unknown) (unknown) Snoring (-2018) (units (unknown) date) unknown) (unknown) (no (unknown) (unknown) Social History (units (unknown) date) unknown) (unknown) (no (unknown) (unknown) Speech and (units (unk nown) date) Movement: speech unknown) clear (unknown) (no (unknown) (unknown) Speech: speech (units (unknown) date) normal unknown) (unknown) (no (unknown) (unknown) Status post ORIF (units (unknown) date) of fracture of unknown) ankle (unknown) (no (unknown) (unknown) Status: Chronic (units (unknown) date) unknown) (unknown) (no (unknown) (unknown) Sulfa (units (unkno wn) date) (Sulfonamide unknown) Antibiotics) Allergy (Mild, Verified 01/16/22 15:09) (unknown) (no (unknown) (unknown) Surgical History (units (unknown) date) (Reviewed 07/22/22 unknown) @ 13:26 by Omar Kim MD) (unknown) (no (unknown) (unknown) Symptoms (units (unkno wn) date) unknown) (unknown) (no (unknown) (unknown) This note may (units ( unknown) date) have been all or unknown) partially generated using voice recognition (unknown) (no (unknown) (unknown) Tobacco + (units (unkn own) date) Substance Use unknown) (unknown) (no (unknown) (unknown) Tobacco Status (units (unknown) date) unknown) (unknown) (no (unknown) (unknown) Treatment (units (unkn own) date) Effects: Pap unknown) Treatment Response/Side Effects: adherent to current PAP (unknown) (no (unknown) (unknown) Treatment (units (unkn own) date) Response/Side unknown) Affects (unknown) (no (unknown) (unknown) Visit Reasons: (units (unknown) date) 6m-norco unknown) (unknown) (no (unknown) (unknown) Visit type (FU): (units (unknown) date) follow up of CLARE unknown) therapy Follow up evaluation of CLARE therapy: (unknown) (no (unknown) (unknown) able to wear her (units (unknown) date) CPAP. Since her unknown) pressure was adjusted, her had report (unknown) (no (unknown) (unknown) adequate and her (units (unknown) date) AHIflow is unknown) optimal. Her compliance data indicates that her (unknown) (no (unknown) (unknown) alcohol intake: (units (unknown) date) current unknown) (unknown) (no (unknown) (unknown) also a history of (units (unknown) date) hypertension with unknown) a Mallampati score of IV. The basics of the (unknown) (no (unknown) (unknown) and COPD, as well (units (unknown) date) as a Mallampati unknown) score of IV. She is also waking twice nightly (unknown) (no (unknown) (unknown) appreciated, (units (u nknown) date) apnea, choking or unknown) gasping (occasional with asthma), epworth sleep (unknown) (no (unknown) (unknown) at length. After (units (unknown) date) review of the unknown) physical findings and clinical history it was (unknown) (no (unknown) (unknown) but increased (units ( unknown) date) benefit from more unknown) usage was also explained. (unknown) (no (unknown) (unknown) clinical response (units (unknown) date) including no unknown) snoring and improved sleep efficiency when she is (unknown) (no (unknown) (unknown) consistent with (units (unknown) date) mild sleep apnea unknown) for which she was started on nasal CPAP at 5-10 (unknown) (no (unknown) (unknown) continued use of (units (unknown) date) PAP therapy. The unknown) patient is willing to continue with PAP (unknown) (no (unknown) (unknown) cough, denies (units ( unknown) date) nocturnal unknown) palpitations, denies heart burn symptoms at night, (unknown) (no (unknown) (unknown) cwp. (units (unkno wn) date) unknown) (unknown) (no (unknown) (unknown) denied, early (units ( unknown) date) morning awakening unknown) denied, spending time in bed not sleeping a (unknown) (no (unknown) (unknown) denies night (units (u nknown) date) sweats, reports unknown) morning headache, reports nasal congestion at (unknown) (no (unknown) (unknown) denies nocturia, (units (unknown) date) reports pain unknown) (chronic back), denies dizziness in the morning or (unknown) (no (unknown) (unknown) denies trouble (units (unknown) date) consentrating/focu unknown) sing durng the day (unknown) (no (unknown) (unknown) determined that a (units (unknown) date) diagnostic sleep unknown) study was indicated. Her sleep study was (unknown) (no (unknown) (unknown) difficulty (units (unk nown) date) falling and unknown) staying asleep. There is also a history of hypertension (unknown) (no (unknown) (unknown) gabapentin (units (unk nown) date) Allergy (Verified unknown) 01/16/22 15:09) (unknown) (no (unknown) (unknown) have occurred. If (units (unknown) date) there are any unknown) questions, please contact the Medical Records (unknown) (no (unknown) (unknown) household (units (unkn own) date) members: spouse unknown) (unknown) (no (unknown) (unknown) housing: house (units (unknown) date) unknown) (unknown) (no (unknown) (unknown) initially on the (units (unknown) date) new machine, but unknown) less so of late. (unknown) (no (unknown) (unknown) last visit. She (units (unknown) date) does feel she unknown) sleeps better on CPAP, she reports feeling better (unknown) (no (unknown) (unknown) little, normal (units (unknown) date) bedtime unknown) ([id number]), normal wake time (530am), sleep schedule (unknown) (no (unknown) (unknown) lives (units (unkno wn) date) independently: Yes unknown) (unknown) (no (unknown) (unknown) marital status: (units (unknown) date) unknown) (unknown) (no (unknown) (unknown) may occur. (units (unk nown) date) Occasional unknown) wrong-word or 'sound-alike' substitutions may have (unknown) (no (unknown) (unknown) montelukast was (units (unknown) date) also reviewed. unknown) This was noted to be mild on the sleep study. She (unknown) (no (unknown) (unknown) nasal saline and (units (unknown) date) nasal dilator unknown) strips were discussed. Use of nasal steroids and (unknown) (no (unknown) (unknown) night, reports (units (unknown) date) dry mouth, denies unknown) sore throat in the morning, denies nocturnal (unknown) (no (unknown) (unknown) occurred due to (units (unknown) date) the inherent unknown) limitations of voice recognition software. Please (unknown) (no (unknown) (unknown) on PAP well and (units (unknown) date) sleep quality okay unknown) (unknown) (no (unknown) (unknown) or focusing (units (un known) date) unknown) (unknown) (no (unknown) (unknown) pain (units (unkno wn) date) unknown) (unknown) (no (unknown) (unknown) paralysis (units (unkn own) date) unknown) (unknown) (no (unknown) (unknown) pathophysiology of (units (unknown) date) sleep apnea and unknown) the effect on sleep in general were discussed (unknown) (no (unknown) (unknown) pressure should (units (unknown) date) again be unknown) increased. It is clear she would benefit from the (unknown) (no (unknown) (unknown) problems with the (units (unknown) date) pressure or the unknown) mask. Her machine has been replaced since her (unknown) (no (unknown) (unknown) problems); Denies (units (unknown) date) dyspnea at night unknown) (unknown) (no (unknown) (unknown) progressively (units ( unknown) date) worsening sleep unknown) issues. She reports a history of snoring and (unknown) (no (unknown) (unknown) read the note (units ( unknown) date) carefully and unknown) recognize, using context, where these substitutions (unknown) (no (unknown) (unknown) reports no (units (unk nown) date) snoring on CPAP unknown) theapy. (unknown) (no (unknown) (unknown) scale score (units (un known) date) (10/04), bruxism unknown) (denied), sleep talking (denied) and sleep walking (unknown) (no (unknown) (unknown) sentences, no (units ( unknown) date) audible wheezes, unknown) no cough, no grunting and not labored (unknown) (no (unknown) (unknown) she has no (units (unk nown) date) problems with the unknown) pressure or the mask. She is also seeing positive (unknown) (no (unknown) (unknown) she is sleeping (units (unknown) date) more restfully. unknown) Her machine has been replaced. Her compliance is (unknown) (no (unknown) (unknown) software. 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 Her pressure unknown) is currently at 6-12 cwp. (unknown) (no (unknown) (unknown) therapy. (units (unkno wn) date) unknown) (unknown) (no (unknown) (unknown) to urinate, (units (un known) date) further unknown) interrupting sleep. (unknown) (no (unknown) (unknown) treatment (units (unkn own) date) improving on unknown) treatment (unknown) (no (unknown) (unknown) weakness (units (unkno wn) date) associated with unknown) strong emotion or sleep paralysis (unknown) (no (unknown) (unknown) with a flowAHI of (units (unknown) date) 1.2 and 2 minutes unknown) 41 seconds of large leak at 7-14 cwp. Result panel 2 (unknown) (no (unknown) (unknown) (no value) (units (unk nown) date) unknown) (unknown) (no (unknown) (unknown) (1) Obstructive (units (unknown) date) sleep apnea of unknown) adult: (unknown) (no (unknown) (unknown) (2) Snoring: (units (u nknown) date) unknown) (unknown) (no (unknown) (unknown) (denied) (units (unkno wn) date) unknown) (unknown) (no (unknown) (unknown) 07/22/22 (units (unkno wn) date) unknown) (unknown) (no (unknown) (unknown) (units (unkno wn) date) unknown) (unknown) (no (unknown) (unknown) Affect: normal (units (unknown) date) affect unknown) (unknown) (no (unknown) (unknown) Age/Sex: 82 / F (units (unknown) date) Date of Service: unknown) (unknown) (no (unknown) (unknown) Allergic rhinitis (units (unknown) date) unknown) (unknown) (no (unknown) (unknown) Allergies (units (unkn own) date) unknown) (unknown) (no (unknown) (unknown) [place], [place] (units ( unknown) date) [id number] unknown) (unknown) (no (unknown) (unknown) Appearance: (units (un known) date) grossly normal unknown) (unknown) (no (unknown) (unknown) Assessment + Plan (units (unknown) date) unknown) (unknown) (no (unknown) (unknown) Assessment and (units (unknown) date) Plan: unknown) (unknown) (no (unknown) (unknown) Attending Dr: (units ( unknown) date) Omar Kim MD unknown) (unknown) (no (unknown) (unknown) Attitude: (units (unkn own) date) cooperative unknown) (unknown) (no (unknown) (unknown) COPD with asthma (units (unknown) date) unknown) (unknown) (no (unknown) (unknown) CPAP (6-12 cwp) (units (unknown) date) unknown) (unknown) (no (unknown) (unknown) CTS (carpal (units (un known) date) tunnel syndrome) unknown) (unknown) (no (unknown) (unknown) Cardiac (units (unkno wn) date) unknown) (unknown) (no (unknown) (unknown) Chief Complaint: (units (unknown) date) Patient is here to unknown) follow up on her CPAP therapy. (unknown) (no (unknown) (unknown) Chronic low back (units (unknown) date) pain unknown) (unknown) (no (unknown) (unknown) Clinical Course (units (unknown) date) unknown) (unknown) (no (unknown) (unknown) Cognition: normal (units (unknown) date) cognition unknown) (unknown) (no (unknown) (unknown) Compliance check (units (unknown) date) 2 weeks unknown) (unknown) (no (unknown) (unknown) Condition is (units (u nknown) date) Onset: Chronic and unknown) ongoing condition (unknown) (no (unknown) (unknown) Conjunctivae: (units ( unknown) date) conjunctivae unknown) normal (unknown) (no (unknown) (unknown) Const (units (unkno wn) date) unknown) (unknown) (no (unknown) (unknown) 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 unknown) (unknown) (no (unknown) (unknown) : 1940 (units (unknown) date) Acct:[id number] unknown) (unknown) (no (unknown) (unknown) Denies chest pain (units (unknown) date) or nocturnal unknown) palpitations (unknown) (no (unknown) (unknown) Denies (units (unkno wn) date) depression, unknown) anxiety, napping, hypnagogic hallucinations or sleep (unknown) (no (unknown) (unknown) Denies epistaxis (units (unknown) date) or sore throat in unknown) the morning (unknown) (no (unknown) (unknown) Denies morning (units (unknown) date) headache, dizzy in unknown) the morning, vertigo or trouble concentrating (unknown) (no (unknown) (unknown) Denies myalgia (units (unknown) date) interfering with unknown) sleep, arthralgia interfering with sleep, (unknown) (no (unknown) (unknown) Denies nocturia (units (unknown) date) unknown) (unknown) (no (unknown) (unknown) Denies reflux (units ( unknown) date) pain at night or unknown) bloating on CPAP (unknown) (no (unknown) (unknown) Denies snoring (units (unknown) date) and Denies stops unknown) breathing during sleep (unknown) (no (unknown) (unknown) Dept at (units (unkno wn) date) . unknown) (unknown) (no (unknown) (unknown) Details: (units (unkno wn) date) unknown) (unknown) (no (unknown) (unknown) Documented By: (units (unknown) date) Omar Kim MD unknown) 07/22/22 1324 (unknown) (no (unknown) (unknown) Draft (units (unkno wn) date) unknown) (unknown) (no (unknown)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 unknown) continue PAP therapy at 7-14 cwp. (unknown) (no (unknown) (unknown) Patient was (units (un known) date) encouraged to unknown) increase CPAP usage to a minimum of 4 hours a night, (unknown) (no (unknown) (unknown) Patient was (units (un known) date) instructed to unknown) return sooner if any questions or concerns arise. (unknown) (no (unknown) (unknown) Patient's (units (unkn own) date) compliance data unknown) over 90 days is 93.3% with 65.6% over 4 hours a night (unknown) (no (unknown) (unknown) Patient: (units (unkno wn) date) Aide Simmons MR#: unknown) [id number] (unknown) (no (unknown) (unknown) Pertinent (units (unkn own) date) Positives/Negative unknown) s (unknown) (no (unknown) (unknown) Plan (units (unkno wn) date) unknown) (unknown) (no (unknown) (unknown) Position Sitting (units (unknown) date) unknown) (unknown) (no (unknown) (unknown) Positional (units (unk nown) date) therapy as needed. unknown) (unknown) (no (unknown) (unknown) Psych (units (unkno wn) date) unknown) (unknown) (no (unknown) (unknown) Psychological (units ( unknown) date) unknown) (unknown) (no (unknown) (unknown) Pulse 53 L (units (unk nown) date) unknown) (unknown) (no (unknown) (unknown) Questionnaires (units (unknown) date) unknown) (unknown) (no (unknown) (unknown) ROS Sleep (units (unkn own) date) unknown) (unknown) (no (unknown) (unknown) Reason For Visit (units (unknown) date) unknown) (unknown) (no (unknown) (unknown) Reports cough (units ( unknown) date) (intermittent, unknown) which she associates with allergies, sinus (unknown) (no (unknown) (unknown) Reports runny (units ( unknown) date) nose, nasal unknown) congestion at night and dry mouth in the morning; (unknown) (no (unknown) (unknown) Reports seasonal (units (unknown) date) allergies; Denies unknown) itchy eyes, redness, blurry vision or eye (unknown) (no (unknown) (unknown) Resp (units (unkno wn) date) unknown) (unknown) (no (unknown) (unknown) Respiration 16 (units (unknown) date) unknown) (unknown) (no (unknown) (unknown) Respiratory (units (un known) date) unknown) (unknown) (no (unknown) (unknown) Return visit in 6 (units (unknown) date) months to assess unknown) continued response to PAP therapy (unknown) (no (unknown) (unknown) Sclera: sclerae (units (unknown) date) normal unknown) (unknown) (no (unknown) (unknown) She is currently (units (unknown) date) on nasal CPAP at unknown) 6-12 cwp and has a normal AHIflow. She reports (unknown) (no (unknown) (unknown) She is using her (units (unknown) date) machine regularly unknown) and her AHIflow is optimal. She reports no (unknown) (no (unknown) (unknown) Signed By: (units (unk nown) date) unknown) (unknown) (no (unknown) (unknown) Sitting and (units (un known) date) Readin = unknown) Slight (unknown) (no (unknown) (unknown) Sitting and (units (un known) date) talking to unknown) someone: 0 = Never (None) (unknown) (no (unknown) (unknown) Sitting inactive (units (unknown) date) in a public place: unknown) 0 = Never (None) (unknown) (no (unknown) (unknown) Sitting quietly (units (unknown) date) after lunch (no unknown) alcohol): 0 = Never (None) (unknown) (no (unknown) (unknown) Sleep Schedule (units (unknown) date) Branch: unknown) consistent, daytime somnolence absent, snoring not (unknown) (no (unknown) (unknown) Sleep Visit (units (un known) date) unknown) (unknown) (no (unknown) (unknown) [facility] unknown) (unknown) (no (unknown) (unknown) Smoking Status: (units (unknown) date) Former smoker unknown) (unknown) (no (unknown) (unknown) Snoring (-2018) (units (unknown) date) unknown) (unknown) (no (unknown) (unknown) Social History (units (unknown) date) unknown) (unknown) (no (unknown) (unknown) Speech and (units (unk nown) date) Movement: speech unknown) clear (unknown) (no (unknown) (unknown) Speech: speech (units (unknown) date) normal unknown) (unknown) (no (unknown) (unknown) Status post ORIF (units (unknown) date) of fracture of unknown) ankle (unknown) (no (unknown) (unknown) Status: Chronic (units (unknown) date) unknown) (unknown) (no (unknown) (unknown) Stopped for a few (units (unknown) date) minutes in unknown) traffic: 0 = Never (None) (unknown) (no (unknown) (unknown) Sulfa (units (unkno wn) date) (Sulfonamide unknown) Antibiotics) Allergy (Mild, Verified 01/16/22 15:09) (unknown) (no (unknown) (unknown) Surgical History (units (unknown) date) (Reviewed 07/22/22 unknown) @ 13:26 by Omar Kim MD) (unknown) (no (unknown) (unknown) Symptoms (units (unkno wn) date) unknown) (unknown) (no (unknown) (unknown) Temp 97.2 F L (units ( unknown) date) unknown) (unknown) (no (unknown) (unknown) This note may (units ( unknown) date) have been all or unknown) partially generated using voice recognition (unknown) (no (unknown) (unknown) Tobacco + (units (unkn own) date) Substance Use unknown) (unknown) (no (unknown) (unknown) Tobacco Status (units (unknown) date) unknown) (unknown) (no (unknown) (unknown) Treatment (units (unkn own) date) Effects: Pap unknown) Treatment Response/Side Effects: adherent to current PAP (unknown) (no (unknown) (unknown) Treatment (units (unkn own) date) Response/Side unknown) Affects (unknown) (no (unknown) (unknown) Visit Reasons: (units (unknown) date) 6m-norco unknown) (unknown) (no (unknown) (unknown) Visit type (FU): (units (unknown) date) follow up of CLARE unknown) therapy Follow up evaluation of CLARE therapy: (unknown) (no (unknown) (unknown) Vitals (units (unkno wn) date) unknown) (unknown) (no (unknown) (unknown) Watching TV: 1 = (units (unknown) date) Slight unknown) (unknown) (no (unknown) (unknown) Weight 183 lb (units ( unknown) date) unknown) (unknown) (no (unknown) (unknown) able to wear her (units (unknown) date) CPAP. Since her unknown) pressure was adjusted, her had report (unknown) (no (unknown) (unknown) adequate and her (units (unknown) date) AHIflow is unknown) optimal. Her compliance data indicates that her (unknown) (no (unknown) (unknown) alcohol intake: (units (unknown) date) current unknown) (unknown) (no (unknown) (unknown) also a history of (units (unknown) date) hypertension with unknown) a Mallampati score of IV. The basics of the (unknown) (no (unknown) (unknown) and COPD, as well (units (unknown) date) as a Mallampati unknown) score of IV. She is also waking twice nightly (unknown) (no (unknown) (unknown) appreciated, (units (u nknown) date) apnea, choking or unknown) gasping (occasional with asthma), epworth sleep (unknown) (no (unknown) (unknown) at length. After (units (unknown) date) review of the unknown) physical findings and clinical history it was (unknown) (no (unknown) (unknown) but increased (units ( unknown) date) benefit from more unknown) usage was also explained. (unknown) (no (unknown) (unknown) clinical response (units (unknown) date) including no unknown) snoring and improved sleep efficiency when she is (unknown) (no (unknown) (unknown) consistent with (units (unknown) date) mild sleep apnea unknown) for which she was started on nasal CPAP at 5-10 (unknown) (no (unknown) (unknown) continued use of (units (unknown) date) PAP therapy. The unknown) patient is willing to continue with PAP (unknown) (no (unknown) (unknown) cough, denies (units ( unknown) date) nocturnal unknown) palpitations, denies heart burn symptoms at night, (unknown) (no (unknown) (unknown) cwp. (units (unkno wn) date) unknown) (unknown) (no (unknown) (unknown) denied, early (units ( unknown) date) morning awakening unknown) denied, spending time in bed not sleeping a (unknown) (no (unknown) (unknown) denies night (units (u nknown) date) sweats, reports unknown) morning headache, reports nasal congestion at (unknown) (no (unknown) (unknown) denies nocturia, (units (unknown) date) reports pain unknown) (chronic back), denies dizziness in the morning or (unknown) (no (unknown) (unknown) denies trouble (units (unknown) date) consentrating/focu unknown) sing durng the day (unknown) (no (unknown) (unknown) determined that a (units (unknown) date) diagnostic sleep unknown) study was indicated. Her sleep study was (unknown) (no (unknown) (unknown) difficulty (units (unk nown) date) falling and unknown) staying asleep. There is also a history of hypertension (unknown) (no (unknown) (unknown) gabapentin (units (unk nown) date) Allergy (Verified unknown) 01/16/22 15:09) (unknown) (no (unknown) (unknown) have occurred. If (units (unknown) date) there are any unknown) questions, please contact the Medical Records (unknown) (no (unknown) (unknown) household (units (unkn own) date) members: spouse unknown) (unknown) (no (unknown) (unknown) housing: house (units (unknown) date) unknown) (unknown) (no (unknown) (unknown) initially on the (units (unknown) date) new machine, but unknown) less so of late. (unknown) (no (unknown) (unknown) last visit. She (units (unknown) date) does feel she unknown) sleeps better on CPAP, she reports feeling better (unknown) (no (unknown) (unknown) little, normal (units (unknown) date) bedtime unknown) ([id number]), normal wake time (530am), sleep schedule (unknown) (no (unknown) (unknown) lives (units (unkno wn) date) independently: Yes unknown) (unknown) (no (unknown) (unknown) marital status: (units (unknown) date) unknown) (unknown) (no (unknown) (unknown) may occur. (units (unk nown) date) Occasional unknown) wrong-word or 'sound-alike' substitutions may have (unknown) (no (unknown) (unknown) montelukast was (units (unknown) date) also reviewed. unknown) This was noted to be mild on the sleep study. She (unknown) (no (unknown) (unknown) nasal saline and (units (unknown) date) nasal dilator unknown) strips were discussed. Use of nasal steroids and (unknown) (no (unknown) (unknown) night, reports (units (unknown) date) dry mouth, denies unknown) sore throat in the morning, denies nocturnal (unknown) (no (unknown) (unknown) occurred due to (units (unknown) date) the inherent unknown) limitations of voice recognition software. Please (unknown) (no (unknown) (unknown) on PAP well and (units (unknown) date) sleep quality okay unknown) (unknown) (no (unknown) (unknown) or focusing (units (un known) date) unknown) (unknown) (no (unknown) (unknown) pain (units (unkno wn) date) unknown) (unknown) (no (unknown) (unknown) paralysis (units (unkn own) date) unknown) (unknown) (no (unknown) (unknown) pathophysiology of (units (unknown) date) sleep apnea and unknown) the effect on sleep in general were discussed (unknown) (no (unknown) (unknown) pressure should (units (unknown) date) again be unknown) increased. It is clear she would benefit from the (unknown) (no (unknown) (unknown) problems with the (units (unknown) date) pressure or the unknown) mask. Her machine has been replaced since her (unknown) (no (unknown) (unknown) problems); Denies (units (unknown) date) dyspnea at night unknown) (unknown) (no (unknown) (unknown) progressively (units ( unknown) date) worsening sleep unknown) issues. She reports a history of snoring and (unknown) (no (unknown) (unknown) read the note (units ( unknown) date) carefully and unknown) recognize, using context, where these substitutions (unknown) (no (unknown) (unknown) reports no (units (unk nown) date) snoring on CPAP unknown) theapy. (unknown) (no (unknown) (unknown) scale score (units (un known) date) (11/01), bruxism unknown) (denied), sleep talking (denied) and sleep walking (unknown) (no (unknown) (unknown) sentences, no (units ( unknown) date) audible wheezes, unknown) no cough, no grunting and not labored (unknown) (no (unknown) (unknown) she has no (units (unk nown) date) problems with the unknown) pressure or the mask. She is also seeing positive (unknown) (no (unknown) (unknown) she is sleeping (units (unknown) date) more restfully. unknown) Her machine has been replaced. Her compliance is (unknown) (no (unknown) (unknown) software. 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 Her pressure unknown) is currently at 6-12 cwp. (unknown) (no (unknown) (unknown) therapy. (units (unkno wn) date) unknown) (unknown) (no (unknown) (unknown) to urinate, (units (un known) date) further unknown) interrupting sleep. (unknown) (no (unknown) (unknown) treatment (units (unkn own) date) improving on unknown) treatment (unknown) (no (unknown) (unknown) weakness (units (unkno wn) date) associated with unknown) strong emotion or sleep paralysis (unknown) (no (unknown) (unknown) with a flowAHI of (units (unknown) date) 1.2 and 2 minutes unknown) 41 seconds of large leak at 7-14 cwp. Result panel 4 (unknown) (no (unknown) (unknown) (no value) (units (unk nown) date) unknown) (unknown) (no (unknown) (unknown) (1) Obstructive (units (unknown) date) sleep apnea of unknown) adult: (unknown) (no (unknown) (unknown) (2) Snoring: (units (u nknown) date) unknown) (unknown) (no (unknown) (unknown) 0 = Would never (units (unknown) date) doze or sleep, 1 = unknown) Slight chance of dozing or sleeping, 2 = (unknown) (no (unknown) (unknown) 07/22/22 (units (unkno wn) date) unknown) (unknown) (no (unknown) (unknown) (units (unkno wn) date) unknown) (unknown) (no (unknown) (unknown) Affect: normal (units (unknown) date) affect unknown) (unknown) (no (unknown) (unknown) Age/Sex: 82 / F (units (unknown) date) Date of Service: unknown) (unknown) (no (unknown) (unknown) Allergic rhinitis (units (unknown) date) unknown) (unknown) (no (unknown) (unknown) Allergies (units (unkn own) date) unknown) (unknown) (no (unknown) (unknown) [place], [place] (units ( unknown) date) [id number] unknown) (unknown) (no (unknown) (unknown) Appearance: (units (un known) date) grossly normal unknown) (unknown) (no (unknown) (unknown) Assessment + Plan (units (unknown) date) unknown) (unknown) (no (unknown) (unknown) Assessment and (units (unknown) date) Plan: unknown) (unknown) (no (unknown) (unknown) Attending Dr: (units ( unknown) date) Omar Kim MD unknown) (unknown) (no (unknown) (unknown) Attitude: (units (unkn own) date) cooperative unknown) (unknown) (no (unknown) (unknown) Being a passenger (units (unknown) date) in a motor vehicle unknown) for an hour or so: 1 = Slight (unknown) (no (unknown) (unknown) Branch: denied (units (unknown) date) and sleep walking unknown) Sleep Walking Branch: denied (unknown) (no (unknown) (unknown) COPD with asthma (units (unknown) date) unknown) (unknown) (no (unknown) (unknown) CPAP (6-12 cwp) (units (unknown) date) unknown) (unknown) (no (unknown) (unknown) CTS (carpal (units (un known) date) tunnel syndrome) unknown) (unknown) (no (unknown) (unknown) Cardiac (units (unkno wn) date) unknown) (unknown) (no (unknown) (unknown) Chief Complaint: (units (unknown) date) Patient is here to unknown) follow up on her CPAP therapy. (unknown) (no (unknown) (unknown) Chronic low back (units (unknown) date) pain unknown) (unknown) (no (unknown) (unknown) Clinical Course (units (unknown) date) unknown) (unknown) (no (unknown) (unknown) Cognition: normal (units (unknown) date) cognition unknown) (unknown) (no (unknown) (unknown) Compliance check (units (unknown) date) 2 weeks unknown) (unknown) (no (unknown) (unknown) Condition is (units (u nknown) date) Onset: Chronic and unknown) ongoing condition (unknown) (no (unknown) (unknown) Conjunctivae: (units ( unknown) date) conjunctivae unknown) normal (unknown) (no (unknown) (unknown) Const (units (unkno wn) date) unknown) (unknown) (no (unknown) (unknown) 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 unknown) (unknown) (no (unknown) (unknown) : 1940 (units (unknown) date) Acct:[id number] unknown) (unknown) (no (unknown) (unknown) Denies chest pain (units (unknown) date) or nocturnal unknown) palpitations (unknown) (no (unknown) (unknown) Denies (units (unkno wn) date) depression, unknown) anxiety, napping, hypnagogic hallucinations or sleep (unknown) (no (unknown) (unknown) Denies epistaxis (units (unknown) date) or sore throat in unknown) the morning (unknown) (no (unknown) (unknown) Denies morning (units (unknown) date) headache, dizzy in unknown) the morning, vertigo or trouble concentrating (unknown) (no (unknown) (unknown) Denies myalgia (units (unknown) date) interfering with unknown) sleep, arthralgia interfering with sleep, (unknown) (no (unknown) (unknown) Denies nocturia (units (unknown) date) unknown) (unknown) (no (unknown) (unknown) Denies reflux (units ( unknown) date) pain at night or unknown) bloating on CPAP (unknown) (no (unknown) (unknown) Denies snoring (units (unknown) date) and Denies stops unknown) breathing during sleep (unknown) (no (unknown) (unknown) Dept at (units (unkno wn) date) . unknown) (unknown) (no (unknown) (unknown) Details: (units (unkno wn) date) unknown) (unknown) (no (unknown) (unknown) Documented By: (units (unknown) date) Omar Kim MD unknown) 07/22/22 1325 (unknown) (no (unknown) (unknown) Draft (units (unkno wn) date) unknown) (unknown) (no (unknown) (unknown) ENT (units (unkno wn) date) unknown) (unknown) (no (unknown) (unknown) Ears: hearing (units ( unknown) date) grossly normal unknown) bilaterally (unknown) (no (unknown) (unknown) Effort + (units (unkno wn) date) Inspection: normal unknown) respiratory effort, able to speak in complete (unknown) (no (unknown) (unknown) [place] Score: 3 (units (unknown) date) unknown) (unknown) (no (unknown) (unknown) [place] (units (unkno wn) date) Sleepiness Scale unknown) (unknown) (no (unknown) (unknown) Exam Narrative (units (unknown) date) unknown) (unknown) (no (unknown) (unknown) Exam Narrative: (units (unknown) date) unknown) (unknown) (no (unknown) (unknown) Exam (units (unkno wn) date) unknown) (unknown) (no (unknown) (unknown) Eyes (units (unkno wn) date) unknown) (unknown) (no (unknown) (unknown) Facet (units (unkno wn) date) arthropathy, unknown) lumbar (unknown) (no (unknown) (unknown) GERD (units (unkno wn) date) (gastroesophageal unknown) reflux disease) (unknown) (no (unknown) (unknown) GI (units (unkno wn) date) unknown) (unknown) (no (unknown) (unknown) (units (unkno wn) date) unknown) (unknown) (no (unknown) (unknown) General: (units (unkno wn) date) cooperative and no unknown) acute distress (unknown) (no (unknown) (unknown) General: patient (units (unknown) date) alert, patient unknown) awake and patient oriented x3 (unknown) (no (unknown) (unknown) HENMT (units (unkno wn) date) unknown) (unknown) (no (unknown) (unknown) HPI Sleep Follow (units (unknown) date) Up unknown) (unknown) (no (unknown) (unknown) HPI (units (unkno wn) date) unknown) (unknown) (no (unknown) (unknown) Hand paresthesia (units (unknown) date) unknown) (unknown) (no (unknown) (unknown) Head: normal to (units (unknown) date) inspection unknown) (unknown) (no (unknown) (unknown) Her sleep study (units (unknown) date) showed mild sleep unknown) apnea for which she was started on nasal CPAP (unknown) (no (unknown) (unknown) History of (units (unk nown) date) thoracotomy unknown) (unknown) (no (unknown) (unknown) Hypertension (units (u nknown) date) unknown) (unknown) (no (unknown) (unknown) [place] (units (unkn own) date) [place] [facility] [place] with a many-year history of (unknown) (no (unknown) (unknown) Intake (units (unkno wn) date) unknown) (unknown) (no (unknown) (unknown) Loc: SLEEP (units (unk nown) date) unknown) (unknown) (no (unknown) (unknown) Lying down in the (units (unknown) date) afternoon: 0 = unknown) Never (None) (unknown) (no (unknown) (unknown) Medical History (units (unknown) date) (Reviewed 07/22/22 unknown) @ 13:26 by Omar Kim MD) (unknown) (no (unknown) (unknown) Mental Status: (units (unknown) date) mental status unknown) grossly normal (unknown) (no (unknown) (unknown) Moderate chance (units (unknown) date) of dozing or unknown) sleeping, 3 = High chance of dozing or sleeping (unknown) (no (unknown) (unknown) Mood: congruent (units (unknown) date) mood unknown) (unknown) (no (unknown) (unknown) Musc (units (unkno wn) date) unknown) (unknown) (no (unknown) (unknown) Neck (units (unkno wn) date) unknown) (unknown) (no (unknown) (unknown) Neck: normal (units (u nknown) date) visual inspection unknown) (unknown) (no (unknown) (unknown) Neuro (units (unkno wn) date) unknown) (unknown) (no (unknown) (unknown) Neurological (units (u nknown) date) unknown) (unknown) (no (unknown) (unknown) Nutritional (units (un known) date) Appearance: obese unknown) (unknown) (no (unknown) (unknown) Obesity (BMI (units (u nknown) date) 30.0-34.9) unknown) (unknown) (no (unknown) (unknown) Obstructive sleep (units (unknown) date) apnea of adult unknown) (-2017) (unknown) (no (unknown) (unknown) PFSH (units (unkno wn) date) unknown) (unknown) (no (unknown) (unknown) Patient has a (units ( unknown) date) history of chronic unknown) snoring. Positional therapy and the use of (unknown) (no (unknown) (unknown) Patient reports a (units (unknown) date) history of snoring unknown) and a disturbed sleep pattern. There is (unknown) (no (unknown) (unknown) Patient reports (units (unknown) date) difficulty falling unknown) asleep is denied, difficulty staying asleep (unknown) (no (unknown) (unknown) Patient was (units (un known) date) encouraged to unknown) continue PAP therapy at 7-14 cwp. (unknown) (no (unknown) (unknown) Patient was (units (un known) date) encouraged to unknown) increase CPAP usage to a minimum of 4 hours a night, (unknown) (no (unknown) (unknown) Patient was (units (un known) date) instructed to unknown) return sooner if any questions or concerns arise. (unknown) (no (unknown) (unknown) Patient's (units (unkn own) date) compliance data unknown) over 90 days is 93.3% with 65.6% over 4 hours a night (unknown) (no (unknown) (unknown) Patient: (units (unkno wn) date) Aide Simmons MR#: unknown) [id number] (unknown) (no (unknown) (unknown) Pertinent (units (unkn own) date) Positives/Negative unknown) s (unknown) (no (unknown) (unknown) Plan (units (unkno wn) date) unknown) (unknown) (no (unknown) (unknown) Positional (units (unk nown) date) therapy as needed. unknown) (unknown) (no (unknown) (unknown) Psych (units (unkno wn) date) unknown) (unknown) (no (unknown) (unknown) Psychological (units ( unknown) date) unknown) (unknown) (no (unknown) (unknown) Questionnaires (units (unknown) date) unknown) (unknown) (no (unknown) (unknown) ROS Sleep (units (unkn own) date) unknown) (unknown) (no (unknown) (unknown) Reason For Visit (units (unknown) date) unknown) (unknown) (no (unknown) (unknown) Reports cough (units ( unknown) date) (intermittent, unknown) which she associates with allergies, sinus (unknown) (no (unknown) (unknown) Reports runny (units ( unknown) date) nose, nasal unknown) congestion at night and dry mouth in the morning; (unknown) (no (unknown) (unknown) Reports seasonal (units (unknown) date) allergies; Denies unknown) itchy eyes, redness, blurry vision or eye (unknown) (no (unknown) (unknown) Resp (units (unkno wn) date) unknown) (unknown) (no (unknown) (unknown) Respiratory (units (un known) date) unknown) (unknown) (no (unknown) (unknown) Return visit in 6 (units (unknown) date) months to assess unknown) continued response to PAP therapy (unknown) (no (unknown) (unknown) Sclera: sclerae (units (unknown) date) normal unknown) (unknown) (no (unknown) (unknown) She is currently (units (unknown) date) on nasal CPAP at unknown) 6-12 cwp and has a normal AHIflow. She reports (unknown) (no (unknown) (unknown) She is using her (units (unknown) date) machine regularly unknown) and her AHIflow is optimal. She reports no (unknown) (no (unknown) (unknown) Signed By: (units (unk nown) date) unknown) (unknown) (no (unknown) (unknown) Sitting and (units (un known) date) Readin = unknown) Slight (unknown) (no (unknown) (unknown) Sitting and (units (un known) date) talking to unknown) someone: 0 = Never (None) (unknown) (no (unknown) (unknown) Sitting inactive (units (unknown) date) in a public place: unknown) 0 = Never (None) (unknown) (no (unknown) (unknown) Sitting quietly (units (unknown) date) after lunch (no unknown) alcohol): 0 = Never (None) (unknown) (no (unknown)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 unknown) optimal. It is clear she would benefit from the (unknown) (no (unknown) (unknown) alcohol intake: (units (unknown) date) current unknown) (unknown) (no (unknown) (unknown) also a history of (units (unknown) date) hypertension with unknown) a Mallampati score of IV. The basics of the (unknown) (no (unknown) (unknown) and COPD, as well (units (unknown) date) as a Mallampati unknown) score of IV. She is also waking twice nightly (unknown) (no (unknown) (unknown) appreciated, (units (u nknown) date) apnea, choking or unknown) gasping (occasional with asthma), epworth sleep (unknown) (no (unknown) (unknown) at length. After (units (unknown) date) review of the unknown) physical findings and clinical history it was (unknown) (no (unknown) (unknown) but increased (units ( unknown) date) benefit from more unknown) usage was also explained. (unknown) (no (unknown) (unknown) clinical response (units (unknown) date) including no unknown) snoring and improved sleep efficiency when she is (unknown) (no (unknown) (unknown) consistent with (units (unknown) date) mild sleep apnea unknown) for which she was started on nasal CPAP at 5-10 (unknown) (no (unknown) (unknown) continued use of (units (unknown) date) PAP therapy. The unknown) patient is willing to continue with PAP (unknown) (no (unknown) (unknown) cough, denies (units ( unknown) date) nocturnal unknown) palpitations, denies heart burn symptoms at night, (unknown) (no (unknown) (unknown) cwp. (units (unkno wn) date) unknown) (unknown) (no (unknown) (unknown) denied, early (units ( unknown) date) morning awakening unknown) denied, spending time in bed not sleeping a (unknown) (no (unknown) (unknown) denies night (units (u nknown) date) sweats, reports unknown) morning headache, reports nasal congestion at (unknown) (no (unknown) (unknown) denies nocturia, (units (unknown) date) reports pain unknown) (chronic back), denies dizziness in the morning or (unknown) (no (unknown) (unknown) denies trouble (units (unknown) date) consentrating/focu unknown) sing durng the day (unknown) (no (unknown) (unknown) determined that a (units (unknown) date) diagnostic sleep unknown) study was indicated. Her sleep study was (unknown) (no (unknown) (unknown) difficulty (units (unk nown) date) falling and unknown) staying asleep. There is also a history of hypertension (unknown) (no (unknown) (unknown) gabapentin (units (unk nown) date) Allergy (Verified unknown) 01/16/22 15:09) (unknown) (no (unknown) (unknown) have occurred. If (units (unknown) date) there are any unknown) questions, please contact the Medical Records (unknown) (no (unknown) (unknown) household (units (unkn own) date) members: spouse unknown) (unknown) (no (unknown) (unknown) housing: house (units (unknown) date) unknown) (unknown) (no (unknown) (unknown) illness and his (units (unknown) date) poor sleep has had unknown) a negative impact on her sleep as well. (unknown) (no (unknown) (unknown) initially on the (units (unknown) date) new machine, but unknown) less so of late. the stress of her 's (unknown) (no (unknown) (unknown) last visit. She (units (unknown) date) does feel she unknown) sleeps better on CPAP, she reports feeling better (unknown) (no (unknown) (unknown) little, normal (units (unknown) date) bedtime unknown) ([id number]), normal wake time (530am), sleep schedule (unknown) (no (unknown) (unknown) lives (units (unkno wn) date) independently: Yes unknown) (unknown) (no (unknown) (unknown) marital status: (units (unknown) date) unknown) (unknown) (no (unknown) (unknown) may occur. (units (unk nown) date) Occasional unknown) wrong-word or 'sound-alike' substitutions may have (unknown) (no (unknown) (unknown) montelukast was (units (unknown) date) also reviewed. unknown) This was noted to be mild on the sleep study. She (unknown) (no (unknown) (unknown) nasal saline and (units (unknown) date) nasal dilator unknown) strips were discussed. Use of nasal steroids and (unknown) (no (unknown) (unknown) night, denies dry (units (unknown) date) mouth, denies sore unknown) throat in the morning, denies nocturnal (unknown) (no (unknown) (unknown) occurred due to (units (unknown) date) the inherent unknown) limitations of voice recognition software. Please (unknown) (no (unknown) (unknown) on PAP well and (units (unknown) date) sleep quality okay unknown) (unknown) (no (unknown) (unknown) or focusing (units (un known) date) unknown) (unknown) (no (unknown) (unknown) pain (units (unkno wn) date) unknown) (unknown) (no (unknown) (unknown) paralysis (units (unkn own) date) unknown) (unknown) (no (unknown) (unknown) pathophysiology of (units (unknown) date) sleep apnea and unknown) the effect on sleep in general were discussed (unknown) (no (unknown) (unknown) patient reports (units (unknown) date) stable on unknown) treatment (unknown) (no (unknown) (unknown) problems with the (units (unknown) date) pressure or the unknown) mask. Her machine has been replaced since her (unknown) (no (unknown) (unknown) problems); Denies (units (unknown) date) dyspnea at night unknown) (unknown) (no (unknown) (unknown) progressively (units ( unknown) date) worsening sleep unknown) issues. She reports a history of snoring and (unknown) (no (unknown) (unknown) read the note (units ( unknown) date) carefully and unknown) recognize, using context, where these substitutions (unknown) (no (unknown) (unknown) reports no (units (unk nown) date) snoring on CPAP unknown) theapy. (unknown) (no (unknown) (unknown) scale score (units (unk nown) date) (11/01), bruxism unknown) Bruxism Branch: denied, sleep talking Sleep Talking (unknown) (no (unknown) (unknown) sentences, no (units ( unknown) date) audible wheezes, unknown) no cough, no grunting and not labored (unknown) (no (unknown) (unknown) she has no (units (unk nown) date) problems with the unknown) pressure or the mask. She is also seeing positive (unknown) (no (unknown) (unknown) she is sleeping (units (unknown) date) more restfully. unknown) Her machine has been replaced. Her compliance is (unknown) (no (unknown) (unknown) software. 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 Her pressure unknown) is currently at 6-12 cwp. (unknown) (no (unknown) (unknown) therapy. (units (unkno wn) date) unknown) (unknown) (no (unknown) (unknown) to urinate, (units (un known) date) further unknown) interrupting sleep. (unknown) (no (unknown) (unknown) treatment stable (units (unknown) date) on treatment unknown) (unknown) (no (unknown) (unknown) weakness (units (unkno wn) date) associated with unknown) strong emotion or sleep paralysis (unknown) (no (unknown) (unknown) with a flowAHI of (units (unknown) date) 1.2 and 2 minutes unknown) 41 seconds of large leak at 7-14 cwp. Result panel 7 (unknown) (no (unknown) (unknown) (no value) (units (unk nown) date) unknown) (unknown) (no (unknown) (unknown) 1. 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 (unknown) (no (unknown) (unknown) 08/01/22 (units (unkno wn) date) unknown) (unknown) (no (unknown) (unknown) [address] [place] [address] (units (unknown) date) unknown) (unknown) (no (unknown) (unknown) 2. Mild (units (unkno wn) date) bilateral unknown) foraminal stenoses. Recommend MRI for further evaluation in (unknown) (no (unknown) (unknown) [id number] (units (unkno wn) date) unknown) (unknown) (no (unknown) (unknown) Accession (units (unkn own) date) Number: unknown) [id number] (unknown) (no (unknown) (unknown) Age/Sex: 82 / F (units (unknown) date) Date of Service: unknown) (unknown) (no (unknown) (unknown) LOGAN Perez (units ( unknown) date) [id number] unknown) (unknown) (no (unknown) (unknown) Approved by: (units (u nknown) date) Manuel Goss M.D. unknown) on 08/01/2022 at 16:48 (unknown) (no (unknown) (unknown) Bones: No (units (unkn own) date) fractures or unknown) dislocations to the C7 level. C2 is partially obscured (unknown) (no (unknown) (unknown) C6 and (units (unkno wn) date) unknown) (unknown) (no (unknown) (unknown) C6-C7. Oblique (units (unknown) date) images unknown) demonstrate mild foraminal stenoses at C4-C5 and C5-C6 (unknown) (no (unknown) (unknown) COMPARISON: (units (un known) date) None. unknown) (unknown) (no (unknown) (unknown) : 1940 (units (unknown) date) Acct:[id number] unknown) (unknown) (no (unknown) (unknown) Dictated by: (units (u nknown) date) Manuel Goss M.D. unknown) on 08/01/2022 at 16:45 (unknown) (no (unknown) (unknown) FINDINGS: (units (unkn own) date) unknown) (unknown) (no (unknown) (unknown) IMPRESSION: (units (un known) date) unknown) (unknown) (no (unknown) (unknown) INDICATIONS: (units (u nknown) date) Bilateral hand unknown) paresthesias (unknown) (no (unknown) (unknown) [facility] (units (unknown) date) unknown) (unknown) (no (unknown) (unknown) Loc: RAD (units (unkno wn) date) unknown) (unknown) (no (unknown) (unknown) Dwqrchpz-en-rwhn (units (unknown) date) re bilateral unknown) facet arthropathy, most pronounced at C4-C5, C5 (unknown) (no (unknown) (unknown) Ordering (units (unkno wn) date) Provider: unknown) Omar Hillman D.O. (unknown) (no (unknown) (unknown) PROCEDURE: XR (units ( unknown) date) CERVICAL SPINE 4V unknown) OR 5V (unknown) (no (unknown) (unknown) Patient: (units (unkno wn) date) Aide Simmons W unknown) MR#: [id number] (unknown) (no (unknown) (unknown) Procedure: XR (units ( unknown) date) cervical spine 4V unknown) or 5V (unknown) (no (unknown) (unknown) Signed (units (unkno wn) date) unknown) (unknown) (no (unknown) (unknown) Soft tissues: No (units (unknown) date) prevertebral soft unknown) tissue swelling. (unknown) (no (unknown) (unknown) TECHNIQUE: 5 (units (u nknown) date) views of the unknown) cervical spine acquired. (unknown) (no (unknown) (unknown) XRay Report (units (un known) date) unknown) (unknown) (no (unknown) (unknown) and C3-C4. (units (unk nown) date) unknown) (unknown) (no (unknown) (unknown) degenerative (units (u nknown) date) disc unknown) (unknown) (no (unknown) (unknown) disease at (units (unk nown) date) C4-C5, C5-C6 and unknown) C6-C7, and mild degenerative disc disease at C2-C3 (unknown) (no (unknown) (unknown) lateral view by (units (unknown) date) metallic unknown) artifacts from ear rings. There is moderate (unknown) (no (unknown) (unknown) on the (units (unkno wn) date) unknown) (unknown) (no (unknown) (unknown) patient with (units (u nknown) date) radiculopathy unknown) symptoms. (unknown) (no (unknown) (unknown) right, and (units (unk nown) date) C4-C5, C5-C6 and unknown) C6-C7 on the left. (unknown) (no (unknown) (unknown) this (units (unkno wn) date) unknown) Result panel 8 (unknown) (no (unknown) (unknown) (no value) (units (unk nown) date) unknown) (unknown) (no (unknown) (unknown) 12/26/17 [History (units (unknown) date) Confirmed 08/01/22] unknown) (unknown) (no (unknown) (unknown) 08/01/22 (units (unkno wn) date) unknown) (unknown) (no (unknown) (unknown) 08/01/22] (units (unkn own) date) unknown) (unknown) (no (unknown) (unknown) (units (unkno wn) date) unknown) (unknown) (no (unknown) (unknown) 600 plus D) 1 tab PO (uni ts (unknown) date) BID 12/26/17 [History unknown) Confirmed 08/01/22] (unknown) (no (unknown) (unknown) Accompanied by: (units (unknown) date) Spouse unknown) (unknown) (no (unknown) (unknown) Age/Sex: 82 / F Date (uni ts (unknown) date) of Service: unknown) (unknown) (no (unknown) (unknown) Allergic rhinitis (units (unknown) date) unknown) (unknown) (no (unknown) (unknown) Allergies (units (unkn own) date) unknown) (unknown) (no (unknown) (unknown) [place] [address] (unit s (unknown) date) unknown) (unknown) (no (unknown) (unknown) Attending Dr: Omar (uni ts (unknown) date) Becky Erwin unknown) (unknown) (no (unknown) (unknown) COPD with asthma (units (unknown) date) unknown) (unknown) (no (unknown) (unknown) CTS (carpal tunnel (units (unknown) date) syndrome) unknown) (unknown) (no (unknown) (unknown) Chronic low back (units (unknown) date) pain unknown) (unknown) (no (unknown) (unknown) Confirmed 08/01/22] (unit s (unknown) date) unknown) (unknown) (no (unknown) (unknown) 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 unknown) (unknown) (no (unknown) (unknown) Documented By: (units (unknown) date) Omar Hillman D.O. unknown) 08/01/22 1332 (unknown) (no (unknown) (unknown) Draft (units (unkno wn) date) unknown) (unknown) (no (unknown) (unknown) Ellipta) 1 inh (units (unknown) date) inhalation DAILY PRN unknown) 04/26/21 [History Confirmed 08/01/22] (unknown) (no (unknown) (unknown) Facet arthropathy, (units (unknown) date) lumbar unknown) (unknown) (no (unknown) (unknown) GERD (units (unkno wn) date) (gastroesophageal unknown) reflux disease) (unknown) (no (unknown) (unknown) Hand paresthesia (units (unknown) date) unknown) (unknown) (no (unknown) (unknown) History of (units (unk nown) date) thoracotomy unknown) (unknown) (no (unknown) (unknown) Hypertension (units (u nknown) date) unknown) (unknown) (no (unknown) (unknown) Intake Note: (units (u nknown) date) unknown) (unknown) (no (unknown) (unknown) Intake (units (unkno wn) date) unknown) (unknown) (no (unknown) (unknown) Loc: PAIN (units (unkn own) date) unknown) (unknown) (no (unknown) (unknown) Medical History (units (unknown) date) (Reviewed 07/22/22 @ unknown) 13:26 by Omar Kim MD) (unknown) (no (unknown) (unknown) Medications (units (un known) date) unknown) (unknown) (no (unknown) (unknown) Obesity (BMI (units (u nknown) date) 30.0-34.9) unknown) (unknown) (no (unknown) (unknown) Obstructive sleep (units (unknown) date) apnea of adult unknown) () (unknown) (no (unknown) (unknown) PATIENT IS HERE TO (units (unknown) date) DISCUSS LOW BACK PAIN unknown) (unknown) (no (unknown) (unknown) PFSH (units (unkno wn) date) unknown) (unknown) (no (unknown) (unknown) Pain Visit (units (unk nown) date) unknown) (unknown) (no (unknown) (unknown) Patient: Aide Simmons (uni ts (unknown) date) W MR#: [id number] unknown) (unknown) (no (unknown) (unknown) Reason For Visit (units (unknown) date) unknown) (unknown) (no (unknown) (unknown) Respimat) 2 puff (units (unknown) date) inhalation DAILY unknown) 01/18/19 [History Confirmed 08/01/22] (unknown) (no (unknown) (unknown) Respironics (units (un known) date) Dreamstation CPAP #1 unknown) ea 12/28/18 [History Confirmed 08/01/22] (unknown) (no (unknown) (unknown) Signed By: (units (unk nown) date) unknown) (unknown) (no (unknown) (unknown) Smoking Status: (units (unknown) date) Former smoker unknown) (unknown) (no (unknown) (unknown) Snoring () (units (unknown) date) unknown) (unknown) (no (unknown) (unknown) Social History (units (unknown) date) unknown) (unknown) (no (unknown) (unknown) Status post ORIF of (unit s (unknown) date) fracture of ankle unknown) (unknown) (no (unknown) (unknown) Sulfa (Sulfonamide (units (unknown) date) Antibiotics) Allergy unknown) (Mild, Verified 08/01/22 13:32) (unknown) (no (unknown) (unknown) Surgical History (units (unknown) date) (Reviewed 07/22/22 @ unknown) 13:26 by Omar Kim MD) (unknown) (no (unknown) (unknown) [facility] (unit s (unknown) date) Management unknown) (unknown) (no (unknown) (unknown) This note may have (units (unknown) date) been all or partially unknown) generated using voice recognition (unknown) (no (unknown) (unknown) Tobacco + Substance (unit s (unknown) date) Use unknown) (unknown) (no (unknown) (unknown) Tobacco Status (units (unknown) date) unknown) (unknown) (no (unknown) (unknown) Visit Reasons: (units (unknown) date) LSpine pain unknown) *confirmed (unknown) (no (unknown) (unknown) [History Confirmed (units (unknown) date) 08/01/22] unknown) (unknown) (no (unknown) (unknown) acetaminophen 325 mg (uni ts (unknown) date) tablet (Tylenol) 325 unknown) mg PO Q4-6H PRN 12/26/17 [History (unknown) (no (unknown) (unknown) albuterol sulfate 90 (uni ts (unknown) date) mcg/actuation aerosol unknown) inhaler (ProAir HFA) 1 puff (unknown) (no (unknown) (unknown) alcohol intake: (units (unknown) date) current unknown) (unknown) (no (unknown) (unknown) aspirin 81 mg (units ( unknown) date) tablet,delayed unknown) release (Lo-Dose Aspirin) 81 mg PO DAILY 12/26/17 (unknown) (no (unknown) (unknown) atenolol 25 mg (units (unknown) date) tablet 25 mg PO DAILY unknown) 12/26/17 [History Confirmed 08/01/22] (unknown) (no (unknown) (unknown) benzonatate 100 mg (units (unknown) date) capsule (Tessalon unknown) Perles) 100 mg PO ONCE PRN 12/26/17 (unknown) (no (unknown) (unknown) betamethasone (units ( unknown) date) dipropionate 0.05 % unknown) topical ointment g topical 01/16/22 [History (unknown) (no (unknown) (unknown) calcium carbonate (units (unknown) date) 600 mg-vitamin D3 20 unknown) mcg (800 unit) chewable tablet (Caltrate (unknown) (no (unknown) (unknown) cetirizine 10 mg (units (unknown) date) capsule (Zyrtec) PO unknown) 12/26/17 [History Confirmed 08/01/22] (unknown) (no (unknown) (unknown) cholecalciferol (units (unknown) date) (vitamin D3) 25 mcg unknown) (1,000 unit) capsule 1,000 unit PO DAILY (unknown) (no (unknown) (unknown) cyanocobalamin (units (unknown) date) (vitamin B-12) 1,000 unknown) mcg capsule 1,000 mcg PO DAILY 12/26/17 (unknown) (no (unknown) (unknown) fluticasone furoate (unit s (unknown) date) 200 mcg/actuation unknown) blister powder for inhalation (Arnuity (unknown) (no (unknown) (unknown) gabapentin Allergy (units (unknown) date) (Verified 08/01/22 unknown) 13:32) (unknown) (no (unknown) (unknown) have occurred. If (units (unknown) date) there are any unknown) questions, please contact the Medical Records (unknown) (no (unknown) (unknown) household members: (units (unknown) date) spouse unknown) (unknown) (no (unknown) (unknown) housing: house (units (unknown) date) unknown) (unknown) (no (unknown) (unknown) hydrochlorothiazide (unit s (unknown) date) 25 mg tablet 25 mg PO unknown) DAILY 12/26/17 [History Confirmed (unknown) (no (unknown) (unknown) inhalation Q6H PRN (units (unknown) date) 01/18/19 [History unknown) Confirmed 08/01/22] (unknown) (no (unknown) (unknown) lives independently: (uni ts (unknown) date) Yes unknown) (unknown) (no (unknown) (unknown) marital status: (units (unknown) date) unknown) (unknown) (no (unknown) (unknown) may occur. (units (unk nown) date) Occasional wrong-word unknown) or 'sound-alike' substitutions may have (unknown) (no (unknown) (unknown) meloxicam 15 mg (units (unknown) date) tablet 15 mg PO DAILY unknown) PRN 04/26/21 [History Confirmed 08/01/22] (unknown) (no (unknown) (unknown) mirabegron 25 mg (units (unknown) date) tablet,extended unknown) release 24 hr (Myrbetriq) tab PO 10/11/21 (unknown) (no (unknown) (unknown) montelukast 10 mg (units (unknown) date) tablet 10 mg PO QPM unknown) 12/26/17 [History Confirmed 08/01/22] (unknown) (no (unknown) (unknown) nortriptyline 10 mg (unit s (unknown) date) capsule 10 mg PO unknown) BEDTIME 04/26/21 [History Confirmed (unknown) (no (unknown) (unknown) occurred due to the (unit s (unknown) date) inherent limitations unknown) of voice recognition software. Please (unknown) (no (unknown) (unknown) omega-3 fatty acids (unit s (unknown) date) 1,000 mg capsule unknown) (Fish Oil Concentrate) 1,200 mg PO DAILY (unknown) (no (unknown) (unknown) pantoprazole 40 mg (units (unknown) date) tablet,delayed unknown) release 40 mg PO DAILY 10/11/21 [History (unknown) (no (unknown) (unknown) read the note (units ( unknown) date) carefully and unknown) recognize, using context, where these substitutions (unknown) (no (unknown) (unknown) software. 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 (unknown) (no (unknown) (unknown) tiotropium 2.5 (units (unknown) date) mcg-olodaterol 2.5 unknown) mcg/actuation mist for inhalation (Stiolto (unknown) (no (unknown) (unknown) tramadol 50 mg (units (unknown) date) tablet 50 mg PO BID unknown) PRN pain #42 tabs 02/14/22 [Rx Confirmed Result panel 9 (unknown) (no (unknown) (unknown) (no value) (units (unk nown) date) unknown) (unknown) (no (unknown) (unknown) 12/26/17 [History (units (unknown) date) Confirmed 08/01/22] unknown) (unknown) (no (unknown) (unknown) 08/01/22 (units (unkno wn) date) unknown) (unknown) (no (unknown) (unknown) 08/01/22] (units (unkn own) date) unknown) (unknown) (no (unknown) (unknown) 14:07 (units (unkno wn) date) unknown) (unknown) (no (unknown) (unknown) [id number] (units (unkno wn) date) unknown) (unknown) (no (unknown) (unknown) 600 plus D) 1 tab PO (uni ts (unknown) date) BID 12/26/17 [History unknown) Confirmed 08/01/22] (unknown) (no (unknown) (unknown) 7 (units (unkno wn) date) unknown) (unknown) (no (unknown) (unknown) Accompanied by: (units (unknown) date) Spouse unknown) (unknown) (no (unknown) (unknown) Age/Sex: 82 / F Date (uni ts (unknown) date) of Service: unknown) (unknown) (no (unknown) (unknown) Allergic rhinitis (units (unknown) date) unknown) (unknown) (no (unknown) (unknown) Allergies (units (unkn own) date) unknown) (unknown) (no (unknown) (unknown) [place] [id number] (unit s (unknown) date) unknown) (unknown) (no (unknown) (unknown) Attending Dr: Omar (uni ts (unknown) date) Becky Erwin unknown) (unknown) (no (unknown) (unknown) BMI 32.9 (units (unkno wn) date) unknown) (unknown) (no (unknown) (unknown) BP 110/68 (units (unkn own) date) unknown) (unknown) (no (unknown) (unknown) Blood Pressure (units (unknown) date) Location Rt brachial unknown) (unknown) (no (unknown) (unknown) COPD with asthma (units (unknown) date) unknown) (unknown) (no (unknown) (unknown) CTS (carpal tunnel (units (unknown) date) syndrome) unknown) (unknown) (no (unknown) (unknown) Chronic low back (units (unknown) date) pain unknown) (unknown) (no (unknown) (unknown) Confirmed 08/01/22] (unit s (unknown) date) unknown) (unknown) (no (unknown) (unknown) 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 unknown) (unknown) (no (unknown) (unknown) Documented By: (units (unknown) date) Omar Hillman D.O. unknown) 08/01/22 1332 (unknown) (no (unknown) (unknown) Draft (units (unkno wn) date) unknown) (unknown) (no (unknown) (unknown) Ellipta) 1 inh (units (unknown) date) inhalation DAILY PRN unknown) 04/26/21 [History Confirmed 08/01/22] (unknown) (no (unknown) (unknown) Facet arthropathy, (units (unknown) date) lumbar unknown) (unknown) (no (unknown) (unknown) GERD (units (unkno wn) date) (gastroesophageal unknown) reflux disease) (unknown) (no (unknown) (unknown) Hand paresthesia (units (unknown) date) unknown) (unknown) (no (unknown) (unknown) Height 5 ft 2 in (units (unknown) date) unknown) (unknown) (no (unknown) (unknown) History of (units (unk nown) date) thoracotomy unknown) (unknown) (no (unknown) (unknown) Hypertension (units (u nknown) date) unknown) (unknown) (no (unknown) (unknown) Intake Clinical (units (unknown) date) Staff unknown) (unknown) (no (unknown) (unknown) Intake Note: (units (u nknown) date) unknown) (unknown) (no (unknown) (unknown) Intake performed by: (uni ts (unknown) date) Jeannine Damon unknown) (unknown) (no (unknown) (unknown) Intake (units (unkno wn) date) unknown) (unknown) (no (unknown) (unknown) Is patient in pain?: (unit s (unknown) date) Yes (here for lumbar unknown) and cervical spine) Pain scale (1-10): (unknown) (no (unknown) (unknown) Loc: PAIN (units (unkn own) date) unknown) (unknown) (no (unknown) (unknown) Medical History (units (unknown) date) (Reviewed 07/22/22 @ unknown) 13:26 by Omar Kim MD) (unknown) (no (unknown) (unknown) Medications (units (un known) date) unknown) (unknown) (no (unknown) (unknown) Obesity (BMI (units (u nknown) date) 30.0-34.9) unknown) (unknown) (no (unknown) (unknown) Obstructive sleep (units (unknown) date) apnea of adult unknown) () (unknown) (no (unknown) (unknown) Oxygen Delivery (units (unknown) date) Method room air unknown) (unknown) (no (unknown) (unknown) PATIENT IS HERE TO (units (unknown) date) DISCUSS LOW BACK PAIN unknown) (unknown) (no (unknown) (unknown) PFSH (units (unkno wn) date) unknown) (unknown) (no (unknown) (unknown) Pain Scale (units (unk nown) date) unknown) (unknown) (no (unknown) (unknown) Pain Visit (units (unk nown) date) unknown) (unknown) (no (unknown) (unknown) Patient: Aide Simmons (uni ts (unknown) date) W MR#: [id number] unknown) (unknown) (no (unknown) (unknown) Position Sitting (units (unknown) date) unknown) (unknown) (no (unknown) (unknown) Pulse 62 (units (unkno wn) date) unknown) (unknown) (no (unknown) (unknown) Pulse Oximetry (%) (units (unknown) date) 97 unknown) (unknown) (no (unknown) (unknown) Pulse Source Monitor (uni ts (unknown) date) unknown) (unknown) (no (unknown) (unknown) Reason For Visit (units (unknown) date) unknown) (unknown) (no (unknown) (unknown) Respimat) 2 puff (units (unknown) date) inhalation DAILY unknown) 01/18/19 [History Confirmed 08/01/22] (unknown) (no (unknown) (unknown) Respironics (units (un known) date) Dreamstation CPAP #1 unknown) ea 12/28/18 [History Confirmed 08/01/22] (unknown) (no (unknown) (unknown) Signed By: (units (unk nown) date) unknown) (unknown) (no (unknown) (unknown) Smoking Status: (units (unknown) date) Former smoker unknown) (unknown) (no (unknown) (unknown) Snoring (-2017) (units (unknown) date) unknown) (unknown) (no (unknown) (unknown) Social History (units (unknown) date) unknown) (unknown) (no (unknown) (unknown) Status post ORIF of (unit s (unknown) date) fracture of ankle unknown) (unknown) (no (unknown) (unknown) Sulfa (Sulfonamide (units (unknown) date) Antibiotics) Allergy unknown) (Mild, Verified 08/01/22 13:32) (unknown) (no (unknown) (unknown) Surgical History (units (unknown) date) (Reviewed 07/22/22 @ unknown) 13:26 by Omar Kim MD) (unknown) (no (unknown) (unknown) Temp 98.2 F (units (un known) date) unknown) (unknown) (no (unknown) (unknown) Temp Source Temporal (uni ts (unknown) date) Artery Scan unknown) (unknown) (no (unknown) (unknown) [facility] (unit s (unknown) date) Management unknown) (unknown) (no (unknown) (unknown) This note may have (units (unknown) date) been all or partially unknown) generated using voice recognition (unknown) (no (unknown) (unknown) Tobacco + Substance (unit s (unknown) date) Use unknown) (unknown) (no (unknown) (unknown) Tobacco Status (units (unknown) date) unknown) (unknown) (no (unknown) (unknown) Visit Reasons: (units (unknown) date) LSpine pain unknown) *confirmed, lumbar and cervical spine (unknown) (no (unknown) (unknown) Vitals (units (unkno wn) date) unknown) (unknown) (no (unknown) (unknown) Weight 180 lb (units ( unknown) date) unknown) (unknown) (no (unknown) (unknown) [History Confirmed (units (unknown) date) 08/01/22] unknown) (unknown) (no (unknown) (unknown) acetaminophen 325 mg (uni ts (unknown) date) tablet (Tylenol) 325 unknown) mg PO Q4-6H PRN 12/26/17 [History (unknown) (no (unknown) (unknown) albuterol sulfate 90 (uni ts (unknown) date) mcg/actuation aerosol unknown) inhaler (ProAir HFA) 1 puff (unknown) (no (unknown) (unknown) alcohol intake: (units (unknown) date) current unknown) (unknown) (no (unknown) (unknown) atenolol 25 mg (units (unknown) date) tablet 25 mg PO DAILY unknown) 12/26/17 [History Confirmed 08/01/22] (unknown) (no (unknown) (unknown) benzonatate 100 mg (units (unknown) date) capsule (Tessalon unknown) Perles) 100 mg PO ONCE PRN 12/26/17 (unknown) (no (unknown) (unknown) betamethasone (units ( unknown) date) dipropionate 0.05 % unknown) topical ointment g topical 01/16/22 [History (unknown) (no (unknown) (unknown) calcium carbonate (units (unknown) date) 600 mg-vitamin D3 20 unknown) mcg (800 unit) chewable tablet (Caltrate (unknown) (no (unknown) (unknown) cetirizine 10 mg (units (unknown) date) capsule (Zyrtec) PO unknown) 12/26/17 [History Confirmed 08/01/22] (unknown) (no (unknown) (unknown) cholecalciferol (units (unknown) date) (vitamin D3) 25 mcg unknown) (1,000 unit) capsule 1,000 unit PO DAILY (unknown) (no (unknown) (unknown) cyanocobalamin (units (unknown) date) (vitamin B-12) 1,000 unknown) mcg capsule 1,000 mcg PO DAILY 12/26/17 (unknown) (no (unknown) (unknown) fluticasone furoate (unit s (unknown) date) 200 mcg/actuation unknown) blister powder for inhalation (Arnuity (unknown) (no (unknown) (unknown) gabapentin Allergy (units (unknown) date) (Verified 08/01/22 unknown) 13:32) (unknown) (no (unknown) (unknown) have occurred. If (units (unknown) date) there are any unknown) questions, please contact the Medical Records (unknown) (no (unknown) (unknown) household members: (units (unknown) date) spouse unknown) (unknown) (no (unknown) (unknown) housing: house (units (unknown) date) unknown) (unknown) (no (unknown) (unknown) hydrochlorothiazide (unit s (unknown) date) 25 mg tablet 25 mg PO unknown) DAILY 12/26/17 [History Confirmed (unknown) (no (unknown) (unknown) inhalation Q6H PRN (units (unknown) date) 01/18/19 [History unknown) Confirmed 08/01/22] (unknown) (no (unknown) (unknown) lives independently: (uni ts (unknown) date) Yes unknown) (unknown) (no (unknown) (unknown) marital status: (units (unknown) date) unknown) (unknown) (no (unknown) (unknown) may occur. (units (unk nown) date) Occasional wrong-word unknown) or 'sound-alike' substitutions may have (unknown) (no (unknown) (unknown) meloxicam 15 mg (units (unknown) date) tablet 15 mg PO DAILY unknown) PRN 04/26/21 [History Confirmed 08/01/22] (unknown) (no (unknown) (unknown) mirabegron 25 mg (units (unknown) date) tablet,extended unknown) release 24 hr (Myrbetriq) tab PO 10/11/21 (unknown) (no (unknown) (unknown) montelukast 10 mg (units (unknown) date) tablet 10 mg PO QPM unknown) 12/26/17 [History Confirmed 08/01/22] (unknown) (no (unknown) (unknown) nortriptyline 10 mg (unit s (unknown) date) capsule 10 mg PO unknown) BEDTIME 04/26/21 [History Confirmed (unknown) (no (unknown) (unknown) occurred due to the (unit s (unknown) date) inherent limitations unknown) of voice recognition software. Please (unknown) (no (unknown) (unknown) omega-3 fatty acids (unit s (unknown) date) 1,000 mg capsule unknown) (Fish Oil Concentrate) 1,200 mg PO DAILY (unknown) (no (unknown) (unknown) pantoprazole 40 mg (units (unknown) date) tablet,delayed unknown) release 40 mg PO DAILY 10/11/21 [History (unknown) (no (unknown) (unknown) read the note (units ( unknown) date) carefully and unknown) recognize, using context, where these substitutions (unknown) (no (unknown) (unknown) software. 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 She is quite (units (unknown) date) limited in her unknown) ambulation secondary to the combination of the (unknown) (no (unknown) (unknown) 08/01/22 (units (unkno wn) date) unknown) (unknown) (no (unknown) (unknown) 08/01/22] (units (unkn own) date) unknown) (unknown) (no (unknown) (unknown) 14:07 (units (unkno wn) date) unknown) (unknown) (no (unknown) (unknown) (units (unkno wn) date) unknown) (unknown) (no (unknown) (unknown) 600 plus D) 1 tab PO (uni ts (unknown) date) BID 12/26/17 [History unknown) Confirmed 08/01/22] (unknown) (no (unknown) (unknown) 7 (units (unkno wn) date) unknown) (unknown) (no (unknown) (unknown) ? (units (unkno wn) date) unknown) (unknown) (no (unknown) (unknown) Accompanied by: (units (unknown) date) Spouse unknown) (unknown) (no (unknown) (unknown) Additionally we did (unit s (unknown) date) review her EMG nerve unknown) conduction study which did show (unknown) (no (unknown) (unknown) Age/Sex: 82 / F Date (uni ts (unknown) date) of Service: unknown) (unknown) (no (unknown) (unknown) All of her questions (uni ts (unknown) date) were answered to the unknown) best my ability she is in agreement (unknown) (no (unknown) (unknown) All other systems (units (unknown) date) reviewed and are unknown) unremarkable except as noted in HPI. (unknown) (no (unknown) (unknown) Allergic rhinitis (units (unknown) date) unknown) (unknown) (no (unknown) (unknown) Allergies (units (unkn own) date) unknown) (unknown) (no (unknown) (unknown) [place] [address] (unit s (unknown) date) unknown) (unknown) (no (unknown) (unknown) Assessment + Plan (units (unknown) date) unknown) (unknown) (no (unknown) (unknown) Attending Dr: Omar (uni ts (unknown) date) Becky Erwin unknown) (unknown) (no (unknown) (unknown) BMI 32.9 (units (unkno wn) date) unknown) (unknown) (no (unknown) (unknown) BP 110/68 (units (unkn own) date) unknown) (unknown) (no (unknown) (unknown) Babinski (R/L): - / (unit s (unknown) date) unknown) (unknown) (no (unknown) (unknown) Blood Pressure (units (unknown) date) Location Rt brachial unknown) (unknown) (no (unknown) (unknown) COPD with asthma (units (unknown) date) unknown) (unknown) (no (unknown) (unknown) CTS (carpal tunnel (units (unknown) date) syndrome) unknown) (unknown) (no (unknown) (unknown) Chief Complaint (units (unknown) date) unknown) (unknown) (no (unknown) (unknown) Chief Complaint: (units (unknown) date) Left-sided low back unknown) pain left lumbosacral pain (unknown) (no (unknown) (unknown) Chronic low back (units (unknown) date) pain unknown) (unknown) (no (unknown) (unknown) Clonus (R/L): - / (units (unknown) date) unknown) (unknown) (no (unknown) (unknown) Code(s): M47.27 - (units (unknown) date) Other spondylosis unknown) with radiculopathy, lumbosacral region (unknown) (no (unknown) (unknown) Confirmed 08/01/22] (unit s (unknown) date) unknown) (unknown) (no (unknown) (unknown) 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 unknown) (unknown) (no (unknown) (unknown) Details: (units (unkno wn) date) unknown) (unknown) (no (unknown) (unknown) Documented By: (units (unknown) date) Omar Hillman D.O. unknown) 08/01/22 1332 (unknown) (no (unknown) (unknown) Dorsalis pedis (units (unknown) date) (R/L): 2+ / 2 unknown) (unknown) (no (unknown) (unknown) Draft (units (unkno wn) date) unknown) (unknown) (no (unknown) (unknown) Ellipta) 1 inh (units (unknown) date) inhalation DAILY PRN unknown) 04/26/21 [History Confirmed 08/01/22] (unknown) (no (unknown) (unknown) Endorses s/p left (units (unknown) date) ankle ORIF, L5/S1 unknown) spondylolisthesis, sleep apnea, gait (unknown) (no (unknown) (unknown) Exam Narrative (units (unknown) date) unknown) (unknown) (no (unknown) (unknown) Exam Narrative: (units (unknown) date) unknown) (unknown) (no (unknown) (unknown) Exam (units (unkno wn) date) unknown) (unknown) (no (unknown) (unknown) Extension: 30 (units ( unknown) date) unknown) (unknown) (no (unknown) (unknown) Facet arthropathy, (units (unknown) date) lumbar unknown) (unknown) (no (unknown) (unknown) Flexion: 90 (units (un known) date) unknown) (unknown) (no (unknown) (unknown) GERD (units (unkno wn) date) (gastroesophageal unknown) reflux disease) (unknown) (no (unknown) (unknown) Gait: normal (units (u nknown) date) Coordination: normal unknown) (unknown) (no (unknown) (unknown) General Appearance: (unit s (unknown) date) Well-nourished, well unknown) developed in no acute distress (unknown) (no (unknown) (unknown) HPI (units (unkno wn) date) unknown) (unknown) (no (unknown) (unknown) Hand paresthesia (units (unknown) date) unknown) (unknown) (no (unknown) (unknown) Height 5 ft 2 in (units (unknown) date) unknown) (unknown) (no (unknown) (unknown) Hip Adduction (R/L): (uni ts (unknown) date) 15? / 15? Hip unknown) Abduction (R/L): 40? / 40? (unknown) (no (unknown) (unknown) Hip Exam (Bilateral) (uni ts (unknown) date) unknown) (unknown) (no (unknown) (unknown) Hip Flexion (R/L): (units (unknown) date) 120? / 120? Hip unknown) Extension (R/L): 20? / 20? (unknown) (no (unknown) (unknown) Hip IR (R/L): 5? / (units (unknown) date) 5? Hip ER (R/L): 30? unknown) / 30? (unknown) (no (unknown) (unknown) History of (units (unk nown) date) thoracotomy unknown) (unknown) (no (unknown) (unknown) Hypertension (units (u nknown) date) unknown) (unknown) (no (unknown) (unknown) Inspection / (units (u nknown) date) Palpation LE (R/L): unknown) non-tender bilaterally (unknown) (no (unknown) (unknown) Intake Clinical (units (unknown) date) Staff unknown) (unknown) (no (unknown) (unknown) Intake Note: (units (u nknown) date) unknown) (unknown) (no (unknown) (unknown) Intake performed by: (uni ts (unknown) date) Jeannine Damon unknown) (unknown) (no (unknown) (unknown) Intake (units (unkno wn) date) unknown) (unknown) (no (unknown) (unknown) Is patient in pain?: (unit s (unknown) date) Yes (here for lumbar unknown) and cervical spine) Pain scale (1-10): (unknown) (no (unknown) (unknown) L2 (iliopsoas / mid (unit s (unknown) date) anterior thigh unknown) sensation)= 5/5 : normal (unknown) (no (unknown) (unknown) L3 (quadriceps / (units (unknown) date) distal anterior thigh unknown) sensation)= 5/5 : normal (unknown) (no (unknown) (unknown) L4 (tibialis (units (u nknown) date) anterior / patellar unknown) reflex / medial ankle sensation)= 5/5 : 2+ : (unknown) (no (unknown) (unknown) L5 (EHL / dorsal (units (unknown) date) foot sensation)= 5/5 unknown) : normal (unknown) (no (unknown) (unknown) L5 and S1 medial (units (unknown) date) branch rhizotomy with unknown) good relief. She reports no lower (unknown) (no (unknown) (unknown) LE Skin: no rashes (units (unknown) date) or lesions unknown) bilaterally (unknown) (no (unknown) (unknown) Lateral Bend(R/L): (units (unknown) date) 30 30 unknown) (unknown) (no (unknown) (unknown) Aide and I (units (un known) date) discussed at length unknown) her underlying pathology and her positive (unknown) (no (unknown) (unknown) Aide presents today (uni ts (unknown) date) for further unknown) evaluation treatment of left-sided lumbosacral (unknown) (no (unknown) (unknown) Loc: PAIN (units (unkn own) date) unknown) (unknown) (no (unknown) (unknown) Lumbar Spine Exam (units (unknown) date) unknown) (unknown) (no (unknown) (unknown) Lymph LE: no (units (u nknown) date) inguinal unknown) lymphadenopathy (unknown) (no (unknown) (unknown) MSK: System reviewed (uni ts (unknown) date) and no additional unknown) complaints, except as documented. (unknown) (no (unknown) (unknown) Medical History (units (unknown) date) (Reviewed 08/01/22 @ unknown) 14:37 by Omar Hillman DO) (unknown) (no (unknown) (unknown) Medications (units (un known) date) unknown) (unknown) (no (unknown) (unknown) Neuro: System (units ( unknown) date) reviewed and no unknown) additional complaints, except as documented. (unknown) (no (unknown) (unknown) No quad tightness (units (unknown) date) unknown) (unknown) (no (unknown) (unknown) ORIF. She has had a (unit s (unknown) date) surgical consultation unknown) in [place] and has developed (unknown) (no (unknown) (unknown) Obesity (BMI (units (u nknown) date) 30.0-34.9) unknown) (unknown) (no (unknown) (unknown) Obstructive sleep (units (unknown) date) apnea of adult unknown) (-2017) (unknown) (no (unknown) (unknown) Orientation: (units (u nknown) date) Oriented to person, unknown) place and time. Mood / Affect: Calm (unknown) (no (unknown) (unknown) Oxygen Delivery (units (unknown) date) Method room air unknown) (unknown) (no (unknown) (unknown) PATIENT IS HERE TO (units (unknown) date) DISCUSS LOW BACK PAIN unknown) (unknown) (no (unknown) (unknown) PFSH (units (unkno wn) date) unknown) (unknown) (no (unknown) (unknown) Pain Scale (units (unk nown) date) unknown) (unknown) (no (unknown) (unknown) Pain Visit (units (unk nown) date) unknown) (unknown) (no (unknown) (unknown) Patient: Aide Simmons (uni ts (unknown) date) W MR#: [id number] unknown) (unknown) (no (unknown) (unknown) Plan (units (unkno wn) date) unknown) (unknown) (no (unknown) (unknown) Position Sitting (units (unknown) date) unknown) (unknown) (no (unknown) (unknown) Pulse 62 (units (unkno wn) date) unknown) (unknown) (no (unknown) (unknown) Pulse Oximetry (%) (units (unknown) date) 97 unknown) (unknown) (no (unknown) (unknown) Pulse Source Monitor (uni ts (unknown) date) unknown) (unknown) (no (unknown) (unknown) Qualifiers: (units (un known) date) unknown) (unknown) (no (unknown) (unknown) ROS Narrative (units ( unknown) date) unknown) (unknown) (no (unknown) (unknown) ROS Narrative: (units (unknown) date) unknown) (unknown) (no (unknown) (unknown) ROS (units (unkno wn) date) unknown) (unknown) (no (unknown) (unknown) Reason For Visit (units (unknown) date) unknown) (unknown) (no (unknown) (unknown) Respimat) 2 puff (units (unknown) date) inhalation DAILY unknown) 01/18/19 [History Confirmed 08/01/22] (unknown) (no (unknown) (unknown) Respironics (units (un known) date) Dreamstation CPAP #1 unknown) ea 12/28/18 [History Confirmed 08/01/22] (unknown) (no (unknown) (unknown) Rotation (R/L): 45 / (uni ts (unknown) date) 45 unknown) (unknown) (no (unknown) (unknown) S1 (Peroneals / (units (unknown) date) Achilles reflex / unknown) lateral ankle sensation)= 5/5 : 2+ : normal (unknown) (no (unknown) (unknown) Sacral provocative (units (unknown) date) maneuvers including unknown) sacral shear test, distraction test, (unknown) (no (unknown) (unknown) Seated SLR(R/L): - / (uni ts (unknown) date) unknown) (unknown) (no (unknown) (unknown) Sensation: (units (unk nown) date) Subjective normal unknown) distal sensation bilaterally (unknown) (no (unknown) (unknown) She has had some (units (unknown) date) resolution of her unknown) left axial low back pain. 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 Qualified (unknown) (no (unknown) (unknown) Status post ORIF of (unit s (unknown) date) fracture of ankle unknown) (unknown) (no (unknown) (unknown) Status: Acute (units ( unknown) date) unknown) (unknown) (no (unknown) (unknown) Status: Chronic (units (unknown) date) unknown) (unknown) (no (unknown) (unknown) Strength LE: 5/5 (units (unknown) date) EHL, tibialis unknown) anterior, plantar flexion bilaterally (unknown) (no (unknown) (unknown) Sulfa (Sulfonamide (units (unknown) date) Antibiotics) Allergy unknown) (Mild, Verified 08/01/22 13:32) (unknown) (no (unknown) (unknown) Supine SLR (R/L): - (unit s (unknown) date) / unknown) (unknown) (no (unknown) (unknown) Surgical History (units (unknown) date) (Reviewed 08/01/22 @ unknown) 14:37 by Omar Hillman DO) (unknown) (no (unknown) (unknown) Temp 98.2 F (units (un known) date) unknown) (unknown) (no (unknown) (unknown) Temp Source Temporal (uni ts (unknown) date) Artery Scan unknown) (unknown) (no (unknown) (unknown) Tenderness: Right (units (unknown) date) greater than left unknown) sacral tenderness with positive standing (unknown) (no (unknown) (unknown) [facility] (unit s (unknown) date) Management unknown) (unknown) (no (unknown) (unknown) This note may have (units (unknown) date) been all or partially unknown) generated using voice recognition (unknown) (no (unknown) (unknown) Tobacco + Substance (unit s (unknown) date) Use unknown) (unknown) (no (unknown) (unknown) Tobacco Status (units (unknown) date) unknown) (unknown) (no (unknown) (unknown) Vasculature: 2+ (units (unknown) date) dorsalis pedis pulse unknown) bilaterally (unknown) (no (unknown) (unknown) Visit Reasons: (units (unknown) date) LSpine pain unknown) *confirmed, lumbar and cervical spine (unknown) (no (unknown) (unknown) Vitals (units (unkno wn) date) unknown) (unknown) (no (unknown) (unknown) Lesia Signs: (units (unknown) date) -tenderness, unknown) -simulation, -distraction, -regional disturbances, (unknown) (no (unknown) (unknown) Weight 180 lb (units ( unknown) date) unknown) (unknown) (no (unknown) (unknown) [History Confirmed (units (unknown) date) 08/01/22] unknown) (unknown) (no (unknown) (unknown) acetaminophen 325 mg (uni ts (unknown) date) tablet (Tylenol) 325 unknown) mg PO Q4-6H PRN 12/26/17 [History (unknown) (no (unknown) (unknown) albuterol sulfate 90 (uni ts (unknown) date) mcg/actuation aerosol unknown) inhaler (ProAir HFA) 1 puff (unknown) (no (unknown) (unknown) alcohol intake: (units (unknown) date) current unknown) (unknown) (no (unknown) (unknown) arthritis involving (unit s (unknown) date) the midfoot. The did unknown) not believe the further intervention (unknown) (no (unknown) (unknown) atenolol 25 mg (units (unknown) date) tablet 25 mg PO DAILY unknown) 12/26/17 [History Confirmed 08/01/22] (unknown) (no (unknown) (unknown) benzonatate 100 mg (units (unknown) date) capsule (Tessalon unknown) Perles) 100 mg PO ONCE PRN 12/26/17 (unknown) (no (unknown) (unknown) betamethasone (units ( unknown) date) dipropionate 0.05 % unknown) topical ointment g topical 01/16/22 [History (unknown) (no (unknown) (unknown) calcium carbonate (units (unknown) date) 600 mg-vitamin D3 20 unknown) mcg (800 unit) chewable tablet (Caltrate (unknown) (no (unknown) (unknown) cetirizine 10 mg (units (unknown) date) capsule (Zyrtec) PO unknown) 12/26/17 [History Confirmed 08/01/22] (unknown) (no (unknown) (unknown) cholecalciferol (units (unknown) date) (vitamin D3) 25 mcg unknown) (1,000 unit) capsule 1,000 unit PO DAILY (unknown) (no (unknown) (unknown) continue to monitor (unit s (unknown) date) her intermittent unknown) paresthesias and will contemplate further (unknown) (no (unknown) (unknown) cyanocobalamin (units (unknown) date) (vitamin B-12) 1,000 unknown) mcg capsule 1,000 mcg PO DAILY 12/26/17 (unknown) (no (unknown) (unknown) 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 She is coming to terms (unknown) (no (unknown) (unknown) extremity (units (unkn own) date) paresthesias unknown) associated with this. (unknown) (no (unknown) (unknown) flexion test on the (unit s (unknown) date) right unknown) (unknown) (no (unknown) (unknown) fluticasone furoate (unit s (unknown) date) 200 mcg/actuation unknown) blister powder for inhalation (Arnuity (unknown) (no (unknown) (unknown) gabapentin Allergy (units (unknown) date) (Verified 08/01/22 unknown) 13:32) (unknown) (no (unknown) (unknown) have occurred. If (units (unknown) date) there are any unknown) questions, please contact the Medical Records (unknown) (no (unknown) (unknown) household members: (units (unknown) date) spouse unknown) (unknown) (no (unknown) (unknown) housing: house (units (unknown) date) unknown) (unknown) (no (unknown) (unknown) hydrochlorothiazide (unit s (unknown) date) 25 mg tablet 25 mg PO unknown) DAILY 12/26/17 [History Confirmed (unknown) (no (unknown) (unknown) inhalation Q6H PRN (units (unknown) date) 01/18/19 [History unknown) Confirmed 08/01/22] (unknown) (no (unknown) (unknown) instability (units (un known) date) unknown) (unknown) (no (unknown) (unknown) interventions should (uni ts (unknown) date) symptoms worsen. unknown) (unknown) (no (unknown) (unknown) intravenous drug (units (unknown) date) use, sustained unknown) glucocorticoid use, osteoporosis, or a focal (unknown) (no (unknown) (unknown) left ankle as well (units (unknown) date) as low back pain. She unknown) unfortunately is unable to perform her (unknown) (no (unknown) (unknown) lives independently: (uni ts (unknown) date) Yes unknown) (unknown) (no (unknown) (unknown) marital status: (units (unknown) date) unknown) (unknown) (no (unknown) (unknown) may occur. (units (unk nown) date) Occasional wrong-word unknown) or 'sound-alike' substitutions may have (unknown) (no (unknown) (unknown) meloxicam 15 mg (units (unknown) date) tablet 15 mg PO DAILY unknown) PRN 04/26/21 [History Confirmed 08/01/22] (unknown) (no (unknown) (unknown) mirabegron 25 mg (units (unknown) date) tablet,extended unknown) release 24 hr (Myrbetriq) tab PO 10/11/21 (unknown) (no (unknown) (unknown) montelukast 10 mg (units (unknown) date) tablet 10 mg PO QPM unknown) 12/26/17 [History Confirmed 08/01/22] (unknown) (no (unknown) (unknown) neurological deficit (uni ts (unknown) date) with progressive or unknown) disabling symptoms. 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 At this time she will (unknown) (no (unknown) (unknown) normal (units (unkno wn) date) unknown) (unknown) (no (unknown) (unknown) nortriptyline 10 mg (unit s (unknown) date) capsule 10 mg PO unknown) BEDTIME 04/26/21 [History Confirmed (unknown) (no (unknown) (unknown) occurred due to the (unit s (unknown) date) inherent limitations unknown) of voice recognition software. Please (unknown) (no (unknown) (unknown) omega-3 fatty acids (unit s (unknown) date) 1,000 mg capsule unknown) (Fish Oil Concentrate) 1,200 mg PO DAILY (unknown) (no (unknown) (unknown) or immunosuppressive (uni ts (unknown) date) therapy, previous or unknown) current cancer diagnosis, history of (unknown) (no (unknown) (unknown) overreaction (units (u nknown) date) unknown) (unknown) (no (unknown) (unknown) pain. She reports no (uni ts (unknown) date) specific injury unknown) illness the precipitated the above-stated (unknown) (no (unknown) (unknown) pantoprazole 40 mg (units (unknown) date) tablet,delayed unknown) release 40 mg PO DAILY 10/11/21 [History (unknown) (no (unknown) (unknown) read the note (units ( unknown) date) carefully and unknown) recognize, using context, where these substitutions (unknown) (no (unknown) (unknown) residual gait (units ( unknown) date) abnormality which is unknown) associated with her left previous left ankle (unknown) (no (unknown) (unknown) response with a left (uni ts (unknown) date) L4-L5 and S1 medial unknown) branch rhizotomy performed 11/13/2021. (unknown) (no (unknown) (unknown) sacroiliac joint (units (unknown) date) compression test and unknown) Yoeman's test are positive. (unknown) (no (unknown) (unknown) software. 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 unknown) She has a previous status post left L4 (unknown) (no (unknown) (unknown) symptoms. She (units ( unknown) date) reports symptoms unknown) while sitting in the car as well as well (unknown) (no (unknown) (unknown) tiotropium 2.5 (units (unknown) date) mcg-olodaterol 2.5 unknown) mcg/actuation mist for inhalation (Stiolto (unknown) (no (unknown) (unknown) tramadol 50 mg (units (unknown) date) tablet 50 mg PO BID unknown) PRN pain #42 tabs 02/14/22 [Rx Confirmed (unknown) (no (unknown) (unknown) was warranted given (unit s (unknown) date) her previous history unknown) of complex regional pain syndrome type (unknown) (no (unknown) (unknown) with the (units (unkno wn) date) above-stated plan. unknown) (unknown) (no (unknown) (unknown) with this due to the (uni ts (unknown) date) limitations as stated unknown) above. 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 Multilevel (units ( unknown) date) degenerative changes unknown) with small areas of interval progression as (unknown) (no (unknown) (unknown) 1. Multilevel (units ( unknown) date) degenerative disc unknown) disease and facet arthropathy as described. (unknown) (no (unknown) (unknown) 1. She is quite (units (unknown) date) limited in her unknown) ambulation secondary to the combination of the (unknown) (no (unknown) (unknown) 08/01/22 1445 (units ( unknown) date) unknown) (unknown) (no (unknown) (unknown) 08/01/22 (units (unkno wn) date) unknown) (unknown) (no (unknown) (unknown) 08/01/22] (units (unkn own) date) unknown) (unknown) (no (unknown) (unknown) 13:21 (units (unkno wn) date) unknown) (unknown) (no (unknown) (unknown) 14:07 (units (unkno wn) date) unknown) (unknown) (no (unknown) (unknown) 17:54 (units (unkno wn) date) unknown) (unknown) (no (unknown) (unknown) 2. Most prominent (units (unknown) date) foraminal narrowing unknown) is noted on the left at L5-S1 secondary to (unknown) (no (unknown) (unknown) 2. No central canal (unit s (unknown) date) stenosis. unknown) (unknown) (no (unknown) (unknown) 2.5 cm, (units (unkno wn) date) unknown) (unknown) (no (unknown) (unknown) (units (unkno wn) date) unknown) (unknown) (no (unknown) (unknown) 3. Mild bilateral (units (unknown) date) foraminal stenosis at unknown) L4-L5 and L5-S1. (unknown) (no (unknown) (unknown) 4. Suspect (units (unk nown) date) transitional anatomy. unknown) Please confirm vertebral levels on radiographs (unknown) (no (unknown) (unknown) 5. 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 (unknown) (no (unknown) (unknown) 600 plus D) 1 tab PO (uni ts (unknown) date) BID 12/26/17 [History unknown) Confirmed 08/01/22] (unknown) (no (unknown) (unknown) 7 (units (unkno wn) date) unknown) (unknown) (no (unknown) (unknown) ? (units (unkno wn) date) unknown) (unknown) (no (unknown) (unknown) ACCESSION#: (units (un known) date) [id number] EXAM unknown) DATE: 12/30/2017 (unknown) (no (unknown) (unknown) ACCESSION#: (units (un known) date) [id number] EXAM unknown) DATE: 08/19/2020 (unknown) (no (unknown) (unknown) ACCESSION#: (units (un known) date) [id number] EXAM unknown) DATE: 08/19/2020 13:40 (unknown) (no (unknown) (unknown) Accompanied by: (units (unknown) date) Spouse unknown) (unknown) (no (unknown) (unknown) Additionally, we did (uni ts (unknown) date) review her EMG nerve unknown) conduction study which did show (unknown) (no (unknown) (unknown) Age/Sex: 82 / F Date (uni ts (unknown) date) of Service: unknown) (unknown) (no (unknown) (unknown) All of her questions (uni ts (unknown) date) were answered to the unknown) best my ability she is in agreement (unknown) (no (unknown) (unknown) All other systems (units (unknown) date) reviewed and are unknown) unremarkable except as noted in HPI. (unknown) (no (unknown) (unknown) Allergic rhinitis (units (unknown) date) unknown) (unknown) (no (unknown) (unknown) Allergies (units (unkn own) date) unknown) (unknown) (no (unknown) (unknown) [place] [id number] (unit s (unknown) date) unknown) (unknown) (no (unknown) (unknown) Approved by: Manuel (units (unknown) date) Eun Goss on unknown) 01/01/2018 at 10:33 (unknown) (no (unknown) (unknown) Approved by: Darcy (unit s (unknown) date) Eun Riggs on unknown) 08/21/2020 at 10:41 (unknown) (no (unknown) (unknown) Approved by: Cortes (units (unknown) date) Eun Joy on unknown) 08/19/2020 at 15:45 (unknown) (no (unknown) (unknown) Assessment + Plan (units (unknown) date) unknown) (unknown) (no (unknown) (unknown) Attending Dr: Omar (uni ts (unknown) date) Becky Meza.OCheo unknown) (unknown) (no (unknown) (unknown) BMI 32.9 (units (unkno wn) date) unknown) (unknown) (no (unknown) (unknown) BP 110/68 (units (unkn own) date) unknown) (unknown) (no (unknown) (unknown) Babinski (R/L): - / (unit s (unknown) date) unknown) (unknown) (no (unknown) (unknown) Blood Pressure (units (unknown) date) Location Rt brachial unknown) (unknown) (no (unknown) (unknown) Bones: 5 (units (unkno wn) date) nonrib-bearing unknown) vertebrae are present. Exaggerated lumbar spine (unknown) (no (unknown) (unknown) COMPARISON: [place] (units (unknown) date) [facility], MR, MR unknown) LUMBAR SPINE WO CON, 08/19/2020, 13:21. (unknown) (no (unknown) (unknown) CONTRAST MEDIA: (units (unknown) date) STATION ID: [id number] unknown) (unknown) (no (unknown) (unknown) CONTRAST MEDIA: (units (unknown) date) STATION ID: [id number] unknown) (unknown) (no (unknown) (unknown) CONTRAST MEDIA: (units (unknown) date) STATION ID: [id number] unknown) (unknown) (no (unknown) (unknown) COPD with asthma (units (unknown) date) unknown) (unknown) (no (unknown) (unknown) CTS (carpal tunnel (units (unknown) date) syndrome) unknown) (unknown) (no (unknown) (unknown) Chief Complaint (units (unknown) date) unknown) (unknown) (no (unknown) (unknown) Chief Complaint: (units (unknown) date) Left-sided low back unknown) pain left lumbosacral pain (unknown) (no (unknown) (unknown) Chronic low back (units (unknown) date) pain unknown) (unknown) (no (unknown) (unknown) Clonus (R/L): - / (units (unknown) date) unknown) (unknown) (no (unknown) (unknown) Code(s): M47.27 - (units (unknown) date) Other spondylosis unknown) with radiculopathy, lumbosacral region (unknown) (no (unknown) (unknown) Confirmed 08/01/22] (unit s (unknown) date) unknown) (unknown) (no (unknown) (unknown) 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 unknown) (unknown) (no (unknown) (unknown) Details: (units (unkno wn) date) unknown) (unknown) (no (unknown) (unknown) Dictated by: Manuel (units (unknown) date) Eun Goss on unknown) 12/31/2017 at 14:02 (unknown) (no (unknown) (unknown) Dictated by: Darcy (unit s (unknown) date) Eun Riggs on unknown) 08/21/2020 at 10:33 (unknown) (no (unknown) (unknown) Dictated by: Cortes (units (unknown) date) Eun Joy on unknown) 08/19/2020 at 15:39 (unknown) (no (unknown) (unknown) Documented By: (units (unknown) date) Omar Hillman D.O. unknown) 08/01/22 1332 (unknown) (no (unknown) (unknown) Dorsalis pedis (units (unknown) date) (R/L): 2+ / 2 unknown) (unknown) (no (unknown) (unknown) Ellipta) 1 inh (units (unknown) date) inhalation DAILY PRN unknown) 04/26/21 [History Confirmed 08/01/22] (unknown) (no (unknown) (unknown) Endorses s/p left (units (unknown) date) ankle ORIF, L5/S1 unknown) spondylolisthesis, sleep apnea, gait (unknown) (no (unknown) (unknown) Exam Narrative (units (unknown) date) unknown) (unknown) (no (unknown) (unknown) Exam Narrative: (units (unknown) date) unknown) (unknown) (no (unknown) (unknown) Exam (units (unkno wn) date) unknown) (unknown) (no (unknown) (unknown) Extension: 30 (units ( unknown) date) unknown) (unknown) (no (unknown) (unknown) FINDINGS: (units (unkn own) date) unknown) (unknown) (no (unknown) (unknown) FLUORO TIME: (units (u nknown) date) unknown) (unknown) (no (unknown) (unknown) Facet arthropathy, (units (unknown) date) lumbar unknown) (unknown) (no (unknown) (unknown) Flexion: 90 (units (un known) date) unknown) (unknown) (no (unknown) (unknown) GERD (units (unkno wn) date) (gastroesophageal unknown) reflux disease) (unknown) (no (unknown) (unknown) Gait: normal (units (u nknown) date) Coordination: normal unknown) (unknown) (no (unknown) (unknown) General Appearance: (unit s (unknown) date) Well-nourished, well unknown) developed in no acute distress (unknown) (no (unknown) (unknown) HPI (units (unkno wn) date) unknown) (unknown) (no (unknown) (unknown) Hand paresthesia (units (unknown) date) unknown) (unknown) (no (unknown) (unknown) Height 5 ft 2 in (units (unknown) date) unknown) (unknown) (no (unknown) (unknown) Hip Adduction (R/L): (uni ts (unknown) date) 15? / 15? Hip unknown) Abduction (R/L): 40? / 40? (unknown) (no (unknown) (unknown) Hip Exam (Bilateral) (uni ts (unknown) date) unknown) (unknown) (no (unknown) (unknown) Hip Flexion (R/L): (units (unknown) date) 120? / 120? Hip unknown) Extension (R/L): 20? / 20? (unknown) (no (unknown) (unknown) Hip IR (R/L): 5? / (units (unknown) date) 5? Hip ER (R/L): 30? unknown) / 30? (unknown) (no (unknown) (unknown) History of (units (unk nown) date) thoracotomy unknown) (unknown) (no (unknown) (unknown) Hospital, CR, XR (units (unknown) date) LUMBAR SPINE 6V W unknown) BENDING, 01/20/2018, 13:38. (unknown) (no (unknown) (unknown) Hypertension (units (u nknown) date) unknown) (unknown) (no (unknown) (unknown) IMPRESSION: (units (un known) date) unknown) (unknown) (no (unknown) (unknown) INDICATIONS: acute (units (unknown) date) lbp unknown) (unknown) (no (unknown) (unknown) Informed consent was (unit s (unknown) date) obtained today unknown) without guarantees or assurances of complete (unknown) (no (unknown) (unknown) Inspection / (units (u nknown) date) Palpation LE (R/L): unknown) non-tender bilaterally (unknown) (no (unknown) (unknown) Intake Clinical (units (unknown) date) Staff unknown) (unknown) (no (unknown) (unknown) Intake Note: (units (u nknown) date) unknown) (unknown) (no (unknown) (unknown) Intake performed by: (uni ts (unknown) date) Jeannine Damon unknown) (unknown) (no (unknown) (unknown) Intake (units (unkno wn) date) unknown) (unknown) (no (unknown) (unknown) Is patient in pain?: (unit s (unknown) date) Yes (here for lumbar unknown) and cervical spine) Pain scale (1-10): (unknown) (no (unknown) (unknown) [place] (units (unkno wn) date) unknown) (unknown) (no (unknown) (unknown) L1-L2: No disc (units (unknown) date) bulge, spinal unknown) stenosis or foraminal narrowing. Mild facet (unknown) (no (unknown) (unknown) L2 (iliopsoas / mid (unit s (unknown) date) anterior thigh unknown) sensation)= 5/5 : normal (unknown) (no (unknown) (unknown) L2-L3: No disc (units (unknown) date) bulge, spinal unknown) stenosis or foraminal narrowing. Mild ligamentum (unknown) (no (unknown) (unknown) L3 (quadriceps / (units (unknown) date) distal anterior thigh unknown) sensation)= 5/5 : normal (unknown) (no (unknown) (unknown) L3-L4: Minimal disc (unit s (unknown) date) bulge without spinal unknown) stenosis. Minimal right foraminal (unknown) (no (unknown) (unknown) L4 (tibialis (units (u nknown) date) anterior / patellar unknown) reflex / medial ankle sensation)= 5/5 : 2+ : (unknown) (no (unknown) (unknown) L4-L5: Mild disc (units (unknown) date) bulge without spinal unknown) stenosis. Minimal to mild bilateral (unknown) (no (unknown) (unknown) L4-L5: Mild loss of (unit s (unknown) date) disc height and disc unknown) desiccation. There is prompt posterior (unknown) (no (unknown) (unknown) L5 (EHL / dorsal (units (unknown) date) foot sensation)= 5/5 unknown) : normal (unknown) (no (unknown) (unknown) L5 and S1 medial (units (unknown) date) branch rhizotomy with unknown) good relief. She reports no lower (unknown) (no (unknown) (unknown) L5-S1: Mild disc (units (unknown) date) bulge without spinal unknown) stenosis. Moderate to severe left and (unknown) (no (unknown) (unknown) L5-S1: Mild to (units (unknown) date) moderate loss of disc unknown) height and disc desiccation. There is (unknown) (no (unknown) (unknown) LE Skin: no rashes (units (unknown) date) or lesions unknown) bilaterally (unknown) (no (unknown) (unknown) Lateral Bend(R/L): (units (unknown) date) 30 30 unknown) (unknown) (no (unknown) (unknown) Aide and I (units (un known) date) discussed at length unknown) her underlying pathology and her positive (unknown) (no (unknown) (unknown) Aide presents today (uni ts (unknown) date) for further unknown) evaluation treatment of left-sided lumbosacral (unknown) (no (unknown) (unknown) Loc: [facility] (units (unkn own) date) unknown) (unknown) (no (unknown) (unknown) Lumbar Spine Exam (units (unknown) date) unknown) (unknown) (no (unknown) (unknown) Lymph LE: no (units (u nknown) date) inguinal unknown) lymphadenopathy (unknown) (no (unknown) (unknown) MODALITY: CR PATIENT (uni ts (unknown) date) TYPE: Out unknown) (unknown) (no (unknown) (unknown) MODALITY: MR PATIENT (uni ts (unknown) date) TYPE: Out unknown) (unknown) (no (unknown) (unknown) (units (unknown) date) unknown) (unknown) (no (unknown) (unknown) (units (unknown) date) unknown) (unknown) (no (unknown) (unknown) MSK: System reviewed (uni ts (unknown) date) and no additional unknown) complaints, except as documented. (unknown) (no (unknown) (unknown) Medical History (units (unknown) date) (Reviewed 08/01/22 @ unknown) 14:37 by Omar Hillman DO) (unknown) (no (unknown) (unknown) Medications (units (un known) date) unknown) (unknown) (no (unknown) (unknown) Mild anterolisthesis (uni ts (unknown) date) of L5 on S1. Mild unknown) degenerative change. (unknown) (no (unknown) (unknown) Minimal (units (unkno wn) date) unknown) (unknown) (no (unknown) (unknown) Neuro: System (units ( unknown) date) reviewed and no unknown) additional complaints, except as documented. (unknown) (no (unknown) (unknown) No central canal (units (unknown) date) stenosis. Mild unknown) bilateral foraminal stenosis, unchanged. (unknown) (no (unknown) (unknown) No compression (units (unknown) date) fracture. unknown) (unknown) (no (unknown) (unknown) No interval change. (unit s (unknown) date) unknown) (unknown) (no (unknown) (unknown) No quad tightness (units (unknown) date) unknown) (unknown) (no (unknown) (unknown) ORD. : OMAR (units (unknown) date) [facility]: unknown) (unknown) (no (unknown) (unknown) ORIF. She has had a (unit s (unknown) date) surgical consultation unknown) in [place] and has developed (unknown) (no (unknown) (unknown) Obesity (BMI (units (u nknown) date) 30.0-34.9) unknown) (unknown) (no (unknown) (unknown) Objective Data (units (unknown) date) unknown) (unknown) (no (unknown) (unknown) Objective Data: (units (unknown) date) unknown) (unknown) (no (unknown) (unknown) Oblique images: No (units (unknown) date) pars defects. unknown) (unknown) (no (unknown) (unknown) Obstructive sleep (units (unknown) date) apnea of adult unknown) (-2017) (unknown) (no (unknown) (unknown) Orientation: (units (u nknown) date) Oriented to person, unknown) place and time. Mood / Affect: Calm (unknown) (no (unknown) (unknown) Oxygen Delivery (units (unknown) date) Method room air unknown) (unknown) (no (unknown) (unknown) PATIENT IS HERE TO (units (unknown) date) DISCUSS LOW BACK PAIN unknown) (unknown) (no (unknown) (unknown) PATIENT NAME: VANIA (uni ts (unknown) date) AIDE Borrero : unknown) 1940 (unknown) (no (unknown) (unknown) PFSH (units (unkno wn) date) unknown) (unknown) (no (unknown) (unknown) PROCEDURE: XR LUMBAR (uni ts (unknown) date) SPINE MIN 4V unknown) (unknown) (no (unknown) (unknown) Pain Scale (units (unk nown) date) unknown) (unknown) (no (unknown) (unknown) Pain Visit (units (unk nown) date) unknown) (unknown) (no (unknown) (unknown) Patient: Aide Simmons (uni ts (unknown) date) W MR#: [id number] unknown) (unknown) (no (unknown) (unknown) Plan (units (unkno wn) date) unknown) (unknown) (no (unknown) (unknown) Position Sitting (units (unknown) date) unknown) (unknown) (no (unknown) (unknown) Pulse 62 (units (unkno wn) date) unknown) (unknown) (no (unknown) (unknown) Pulse Oximetry (%) (units (unknown) date) 97 unknown) (unknown) (no (unknown) (unknown) Pulse Source Monitor (uni ts (unknown) date) unknown) (unknown) (no (unknown) (unknown) Qualifiers: (units (un known) date) unknown) (unknown) (no (unknown) (unknown) ROS Narrative (units ( unknown) date) unknown) (unknown) (no (unknown) (unknown) ROS Narrative: (units (unknown) date) unknown) (unknown) (no (unknown) (unknown) ROS (units (unkno wn) date) unknown) (unknown) (no (unknown) (unknown) Reason For Visit (units (unknown) date) unknown) (unknown) (no (unknown) (unknown) Respimat) 2 puff (units (unknown) date) inhalation DAILY unknown) 01/18/19 [History Confirmed 08/01/22] (unknown) (no (unknown) (unknown) Respironics (units (un known) date) Dreamstation CPAP #1 unknown) ea 12/28/18 [History Confirmed 08/01/22] (unknown) (no (unknown) (unknown) Rotation (R/L): 45 / (uni ts (unknown) date) 45 unknown) (unknown) (no (unknown) (unknown) S1 (Peroneals / (units (unknown) date) Achilles reflex / unknown) lateral ankle sensation)= 5/5 : 2+ : normal (unknown) (no (unknown) (unknown) Sacral provocative (units (unknown) date) maneuvers including unknown) sacral shear test, distraction test, (unknown) (no (unknown) (unknown) Seated SLR(R/L): - / (uni ts (unknown) date) unknown) (unknown) (no (unknown) (unknown) Sensation: (units (unk nown) date) Subjective normal unknown) distal sensation bilaterally (unknown) (no (unknown) (unknown) She has had some (units (unknown) date) resolution of her unknown) left axial low back pain. She does have (unknown) (no (unknown) (unknown) She otherwise (units ( unknown) date) reports feeling well unknown) maintain the Covid19 social restrictions (unknown) (no (unknown) (unknown) Signed By: (units (unk nown) date) <Electronically unknown) signed by Deandre DislaOCheo> (unknown) (no (unknown) (unknown) Signed (units (unkno wn) date) unknown) (unknown) (no (unknown) (unknown) Smoking Status: (units (unknown) date) Former smoker unknown) (unknown) (no (unknown) (unknown) Snoring (-2018) (units (unknown) date) unknown) (unknown) (no (unknown) (unknown) Social History (units (unknown) date) unknown) (unknown) (no (unknown) (unknown) Soft tissues: (units ( unknown) date) Overlying bowel gas unknown) pattern is normal. No suspicious soft tissue (unknown) (no (unknown) (unknown) Spinal (units (unkno wn) date) osteoarthritis unknown) complication: with radiculopathy Qualified (unknown) (no (unknown) (unknown) Status post ORIF of (unit s (unknown) date) fracture of ankle unknown) (unknown) (no (unknown) (unknown) Status: Acute (units ( unknown) date) unknown) (unknown) (no (unknown) (unknown) Status: Chronic (units (unknown) date) unknown) (unknown) (no (unknown) (unknown) Strength LE: 5/5 (units (unknown) date) EHL, tibialis unknown) anterior, plantar flexion bilaterally (unknown) (no (unknown) (unknown) Sulfa (Sulfonamide (units (unknown) date) Antibiotics) Allergy unknown) (Mild, Verified 08/01/22 13:32) (unknown) (no (unknown) (unknown) Supine SLR (R/L): - (unit s (unknown) date) / unknown) (unknown) (no (unknown) (unknown) Surgical History (units (unknown) date) (Reviewed 08/01/22 @ unknown) 14:37 by Omar Hillman DO) (unknown) (no (unknown) (unknown) TECHNIQUE: 5 views (units (unknown) date) of the lumbar spine unknown) were acquired. (unknown) (no (unknown) (unknown) Temp 98.2 F (units (un known) date) unknown) (unknown) (no (unknown) (unknown) Temp Source Temporal (uni ts (unknown) date) Artery Scan unknown) (unknown) (no (unknown) (unknown) Tenderness: Right (units (unknown) date) greater than left unknown) sacral tenderness with positive standing (unknown) (no (unknown) (unknown) [facility] (unit s (unknown) date) Management unknown) (unknown) (no (unknown) (unknown) There is a large (units (unknown) date) collar of cyst in the unknown) sacrum at level of S2-S3 measuring 1.7 x (unknown) (no (unknown) (unknown) This note may have (units (unknown) date) been all or partially unknown) generated using voice recognition (unknown) (no (unknown) (unknown) Tobacco + Substance (unit s (unknown) date) Use unknown) (unknown) (no (unknown) (unknown) Tobacco Status (units (unknown) date) unknown) (unknown) (no (unknown) (unknown) Vasculature: 2+ (units (unknown) date) dorsalis pedis pulse unknown) bilaterally (unknown) (no (unknown) (unknown) Visit Reasons: (units (unknown) date) LSpine pain unknown) *confirmed, lumbar and cervical spine (unknown) (no (unknown) (unknown) Vitals (units (unkno wn) date) unknown) (unknown) (no (unknown) (unknown) Lesia Signs: (units (unknown) date) -tenderness, unknown) -simulation, -distraction, -regional disturbances, (unknown) (no (unknown) (unknown) We did review the (units (unknown) date) above-stated unknown) procedure at length and verbal consent was (unknown) (no (unknown) (unknown) Weight 180 lb (units ( unknown) date) unknown) (unknown) (no (unknown) (unknown) [History Confirmed (units (unknown) date) 08/01/22] unknown) (unknown) (no (unknown) (unknown) above. (units (unkno wn) date) unknown) (unknown) (no (unknown) (unknown) acetaminophen 325 mg (uni ts (unknown) date) tablet (Tylenol) 325 unknown) mg PO Q4-6H PRN 05/18/18 [History (unknown) (no (unknown) (unknown) albuterol sulfate 90 (uni ts (unknown) date) mcg/actuation aerosol unknown) inhaler (ProAir HFA) 1 puff (unknown) (no (unknown) (unknown) alcohol intake: (units (unknown) date) current unknown) (unknown) (no (unknown) (unknown) and facet (units (unkn own) date) hypertrophy as well unknown) as epidural lipomatosis. No interval progression. (unknown) (no (unknown) (unknown) anterolisthesis as (units (unknown) date) well as facet unknown) hypertrophy. (unknown) (no (unknown) (unknown) anterolisthesis of (units (unknown) date) L5 on S1. L4-L5 and unknown) L5-S1 facet joint hypertrophy. No (unknown) (no (unknown) (unknown) arthritis involving (unit s (unknown) date) the midfoot. The did unknown) not believe the further intervention (unknown) (no (unknown) (unknown) atenolol 25 mg (units (unknown) date) tablet 25 mg PO DAILY unknown) 12/26/17 [History Confirmed 08/01/22] (unknown) (no (unknown) (unknown) ay occur. Occasional (uni ts (unknown) date) wrong-word or unknown) 'sound-alike' substitutions may have (unknown) (no (unknown) (unknown) benzonatate 100 mg (units (unknown) date) capsule (Tessalon unknown) Perles) 100 mg PO ONCE PRN 12/26/17 (unknown) (no (unknown) (unknown) betamethasone (units ( unknown) date) dipropionate 0.05 % unknown) topical ointment g topical 01/16/22 [History (unknown) (no (unknown) (unknown) bilateral foramina (units (unknown) date) stenosis, unchanged. unknown) (unknown) (no (unknown) (unknown) bulge. Mild to (units (unknown) date) moderate bilateral unknown) facet arthropathy and hypertrophy of ligament (unknown) (no (unknown) (unknown) calcifications. (units (unknown) date) unknown) (unknown) (no (unknown) (unknown) calcium carbonate (units (unknown) date) 600 mg-vitamin D3 20 unknown) mcg (800 unit) chewable tablet (Caltrate (unknown) (no (unknown) (unknown) cetirizine 10 mg (units (unknown) date) capsule (Zyrtec) PO unknown) 12/26/17 [History Confirmed 08/01/22] (unknown) (no (unknown) (unknown) cholecalciferol (units (unknown) date) (vitamin D3) 25 mcg unknown) (1,000 unit) capsule 1,000 unit PO DAILY (unknown) (no (unknown) (unknown) compression (units (un known) date) fractures. No unknown) suspicious bony lesions. Subtle lucency in the S2 (unknown) (no (unknown) (unknown) continue to monitor (unit s (unknown) date) her intermittent unknown) paresthesias and will contemplate further (unknown) (no (unknown) (unknown) cyanocobalamin (units (unknown) date) (vitamin B-12) 1,000 unknown) mcg capsule 1,000 mcg PO DAILY 12/26/17 (unknown) (no (unknown) (unknown) disc (units (unkno wn) date) unknown) (unknown) (no (unknown) (unknown) elected to proceed (units (unknown) date) with the above-stated unknown) injection. 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 We we did discuss her (unknown) (no (unknown) (unknown) extremity (units (unkn own) date) paresthesias unknown) associated with this. She does report occasional use of (unknown) (no (unknown) (unknown) flavum (units (unkno wn) date) unknown) (unknown) (no (unknown) (unknown) flavum. (units (unkno wn) date) unknown) (unknown) (no (unknown) (unknown) flexion test on the (unit s (unknown) date) right unknown) (unknown) (no (unknown) (unknown) fluoroscopic guided (unit s (unknown) date) contrast controlled unknown) sacroiliac joint injection and she (unknown) (no (unknown) (unknown) fluticasone furoate (unit s (unknown) date) 200 mcg/actuation unknown) blister powder for inhalation (Arnuity (unknown) (no (unknown) (unknown) foraminal (units (unkn own) date) unknown) (unknown) (no (unknown) (unknown) gabapentin Allergy (units (unknown) date) (Verified 08/01/22 unknown) 13:32) (unknown) (no (unknown) (unknown) have occurred. If (units (unknown) date) there are any unknown) questions, please contact the Medical Records (unknown) (no (unknown) (unknown) household members: (units (unknown) date) spouse unknown) (unknown) (no (unknown) (unknown) housing: house (units (unknown) date) unknown) (unknown) (no (unknown) (unknown) hydrochlorothiazide (unit s (unknown) date) 25 mg tablet 25 mg PO unknown) DAILY 12/26/17 [History Confirmed (unknown) (no (unknown) (unknown) hypertrophy. (units (u nknown) date) unknown) (unknown) (no (unknown) (unknown) inhalation Q6H PRN (units (unknown) date) 01/18/19 [History unknown) Confirmed 08/01/22] (unknown) (no (unknown) (unknown) injury, stroke, (units (unknown) date) paralysis and unknown) and the patient elected to proceed. (unknown) (no (unknown) (unknown) instability (units (un known) date) unknown) (unknown) (no (unknown) (unknown) interval (units (unkno wn) date) progression. unknown) (unknown) (no (unknown) (unknown) interventions should (uni ts (unknown) date) symptoms worsen. unknown) (unknown) (no (unknown) (unknown) intravenous drug (units (unknown) date) use, sustained unknown) glucocorticoid use, osteoporosis, or a focal (unknown) (no (unknown) (unknown) left ankle as well (units (unknown) date) as low back pain. She unknown) unfortunately is unable to perform her (unknown) (no (unknown) (unknown) lives independently: (uni ts (unknown) date) Yes unknown) (unknown) (no (unknown) (unknown) lordosis. Mild (units (unknown) date) unknown) (unknown) (no (unknown) (unknown) marital status: (units (unknown) date) unknown) (unknown) (no (unknown) (unknown) meloxicam 15 mg (units (unknown) date) tablet 15 mg PO DAILY unknown) PRN 04/26/21 [History Confirmed 08/01/22] (unknown) (no (unknown) (unknown) minimal (units (unkno wn) date) unknown) (unknown) (no (unknown) (unknown) mirabegron 25 mg (units (unknown) date) tablet,extended unknown) release 24 hr (Myrbetriq) tab PO 10/11/21 (unknown) (no (unknown) (unknown) montelukast 10 mg (units (unknown) date) tablet 10 mg PO QPM unknown) 12/26/17 [History Confirmed 08/01/22] (unknown) (no (unknown) (unknown) narrowing (units (unkn own) date) unknown) (unknown) (no (unknown) (unknown) narrowing. Facet and (uni ts (unknown) date) ligamentum flavum unknown) hypertrophy are present. (unknown) (no (unknown) (unknown) neurological deficit (uni ts (unknown) date) with progressive or unknown) disabling symptoms. 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 At this time she will (unknown) (no (unknown) (unknown) normal (units (unkno wn) date) unknown) (unknown) (no (unknown) (unknown) nortriptyline 10 mg (unit s (unknown) date) capsule 10 mg PO unknown) BEDTIME 04/26/21 [History Confirmed (unknown) (no (unknown) (unknown) obtained today, As (units (unknown) date) oral consent, we did unknown) review the risks of the above stated (unknown) (no (unknown) (unknown) occurred due to the (unit s (unknown) date) inherent limitations unknown) of voice recognition software. Please (unknown) (no (unknown) (unknown) omega-3 fatty acids (unit s (unknown) date) 1,000 mg capsule unknown) (Fish Oil Concentrate) 1,200 mg PO DAILY (unknown) (no (unknown) (unknown) or immunosuppressive (uni ts (unknown) date) therapy, previous or unknown) current cancer diagnosis, history of (unknown) (no (unknown) (unknown) overreaction (units (u nknown) date) unknown) (unknown) (no (unknown) (unknown) pain. She reports no (uni ts (unknown) date) specific injury unknown) illness the precipitated the above-stated (unknown) (no (unknown) (unknown) pantoprazole 40 mg (units (unknown) date) tablet,delayed unknown) release 40 mg PO DAILY 10/11/21 [History (unknown) (no (unknown) (unknown) posterior disc (units (unknown) date) bulge. Moderate to unknown) severe bilateral facet. No central canal (unknown) (no (unknown) (unknown) present. (units (unkno wn) date) unknown) (unknown) (no (unknown) (unknown) prior to (units (unkno wn) date) interventional/surgic unknown) al procedures. (unknown) (no (unknown) (unknown) procedure including (units (unknown) date) not limited to unknown) bleeding, infection, allergic reaction, nerve (unknown) (no (unknown) (unknown) prompt (units (unkno wn) date) unknown) (unknown) (no (unknown) (unknown) read the note (units ( unknown) date) carefully and unknown) recognize, using context, where these substitutions (unknown) (no (unknown) (unknown) relief applied. Will (uni ts (unknown) date) complete written unknown) consent on the day of the procedure. (unknown) (no (unknown) (unknown) residual gait (units ( unknown) date) abnormality which is unknown) associated with her left previous left ankle (unknown) (no (unknown) (unknown) response with a left (uni ts (unknown) date) L4-L5 and S1 medial unknown) branch rhizotomy performed 11/13/2021. (unknown) (no (unknown) (unknown) right foraminal (units (unknown) date) narrowing, mildly unknown) progressive on the left. Facet hypertrophy is (unknown) (no (unknown) (unknown) sacroiliac joint (units (unknown) date) compression test and unknown) Yoeman's test are positive. (unknown) (no (unknown) (unknown) sacroiliac joint. We (uni ts (unknown) date) discussed treatment unknown) options available to including a (unknown) (no (unknown) (unknown) software. 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 unknown) She has a previous status post left L4 (unknown) (no (unknown) (unknown) stenosis. Mild (units (unknown) date) unknown) (unknown) (no (unknown) (unknown) symptoms. She (units ( unknown) date) reports symptoms unknown) while sitting in the car as well as well (unknown) (no (unknown) (unknown) tiotropium 2.5 (units (unknown) date) mcg-olodaterol 2.5 unknown) mcg/actuation mist for inhalation (Stiolto (unknown) (no (unknown) (unknown) tramadol 50 mg (units (unknown) date) tablet 50 mg PO BID unknown) PRN pain #42 tabs 02/14/22 [Rx Confirmed (unknown) (no (unknown) (unknown) tramadol as well as (units (unknown) date) naproxen sodium to unknown) try to offset her current symptomatology. (unknown) (no (unknown) (unknown) unchanged from the (units (unknown) date) last exam. unknown) (unknown) (no (unknown) (unknown) unchanged. (units (unk nown) date) unknown) (unknown) (no (unknown) (unknown) underlying pathology (uni ts (unknown) date) her current unknown) symptomatology consistent with her left (unknown) (no (unknown) (unknown) vertebral body (units (unknown) date) unknown) (unknown) (no (unknown) (unknown) vertebral body, (units (unknown) date) unknown) (unknown) (no (unknown) (unknown) was warranted given (unit s (unknown) date) her previous history unknown) of complex regional pain syndrome type (unknown) (no (unknown) (unknown) with facet and (units (unknown) date) ligamentum flavum unknown) hypertrophy. Epidural lipomatosis is present. (unknown) (no (unknown) (unknown) with the (units (unkno wn) date) above-stated plan. unknown) (unknown) (no (unknown) (unknown) without cough fever (unit s (unknown) date) fatigue at this time. unknown) She has been fully vaccinated. Social History date description facility 2022-07-22 00:00 Ex-smoker (finding) [facility] 2022-08-01 00:00 Ex-smoker (finding) [facility] Vital Signs date measurement value units 2022-07-22 00:00 BMI 27.8 kg/m2 2022-07-22 00:00 BP_diastolic 80 mmHg 2022-07-22 00:00 BP_systolic 132 mmHg 2022-07-22 00:00 heart_rate 53 /min 2022-07-22 00:00 height_metric 172.72 cm 2022-07-22 00:00 height_standard 68 in 2022-07-22 00:00 respiration_rate 16 /min 2022-07-22 00:00 temperature_metric 36.22 C 2022-07-22 00:00 temperature_standard 97.2 F 2022-07-22 00:00 weight_metric 83 kg 2022-07-22 00:00 weight_standard 182.98 lb 2022-08-01 00:00 BMI 32.9 kg/m2 2022-08-01 00:00 BP_diastolic 68 mmHg 2022-08-01 00:00 BP_systolic 110 mmHg 2022-08-01 00:00 heart_rate 62 /min 2022-08-01 00:00 height_metric 157.48 cm 2022-08-01 00:00 height_standard 62 in 2022-08-01 00:00 o2_saturation 97 % 2022-08-01 00:00 temperature_metric 36.78 C 2022-08-01 00:00 temperature_standard 98.2 F 2022-08-01 00:00 weight_metric 81.64 kg 2022-08-01 00:00 weight_standard 179.99 lb 2022-09-03 00:00 BP_diastolic 64 mmHg 2022-09-03 00:00 BP_systolic 129 mmHg 2022-09-03 00:00 heart_rate 129 /min 2022-09-03 00:00 o2_saturation 97 % 2022-09-03 00:00 respiration_rate 16 /min
[2022-09-04 15:37] LABS: BASOPHILS % (AUTO) 0.3 %; EOSINOPHILS % (AUTO) 0.3 %; HGB - HEMOGLOBIN 14.6 g/dL (12.0-16.0); LYMPHOCYTES # (AUTO) 1.1 10^3/uL (1.5-3.5); LYMPHOCYTES % (AUTO) 14.2 %; MEAN CORPUSCULAR HEMOGLOBIN 28.7 pg (27.0-31.0); MEAN CORPUSCULAR HGB CONC 32.4 g/dL (32.0-36.0); MEAN CORPUSCULAR VOLUME 88.6 fL (81.0-99.0); MONOCYTES # (AUTO) 0.8 10^3/uL (0.0-1.0); NEUTROPHILS # (AUTO) 5.7 10^3/uL (1.5-6.6); NEUTROPHILS % (AUTO) 74.7 %; PLT - PLATELET COUNT 206 10^3/uL (130-450); RED BLOOD COUNT 5.08 10^6/uL (4.20-5.40); RED CELL DISTRIBUTION WIDTH 13.2 % (12.0-15.0); WHITE BLOOD COUNT 7.6 x10^3/uL (4.8-10.8)
[2022-09-04] MEDS ORDERED: diltiaZEM INJ 5 MG/ML VIAL IVP STA ×4 (15:38→17:50)
--- NOTE | 2022-09-04 15:41 | ED Physician Documentation ---
PD HPI CHEST PAIN - Stated complaint Stated Complaint: HIGH HR - Chief complaint Chief Complaint: Cardiac - History obtained from History obtained from: Patient - Additional information Additional information: She has a history of venous, stasis and asthma. No history of heart disease. Had a PE when . Went to her spine surgeon yesterday for a Cortizone injection and they declined to do it. His heart rate was near 130. She was asymptomatic with it, but continues with high heart rate today. She is short of breath, but not more than normal related to her asthma. She denies chest pain. She does have right side people edema related to venous stasis that is not particularly new. Her says she's been fatigued for about a week. Review of Systems Constitutional: reports: Fatigue (She says no, says yes). denies: Fever, Chills Cardiac: denies: Chest pain / pressure, Palpitations, Pedal edema, Calf pain Respiratory: reports: Dyspnea. 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 : Incontinence HEENT: Chronic sinusitis Psych: None Musculoskeletal: Osteoporosis, Chronic back pain Derm: None - Past Surgical History Past Surgical History: Yes General: Other Ortho: Other HEENT: Cataracts - Present Medications Home Medications: Ambulatory Orders Medication Instructions Recorded Confirmed Aspirin [Aspir-Low] 81 mg PO DAILY 04/19/16 02/15/21 Spencer/D3/Mag11/Zinc/Inspector Balance Truing/Jarrell/Bor 1,200 mg PO DAILY 04/19/16 02/15/21 [Caltrate 600+D Plus Tablet] Cyanocobalamin (Vitamin B-12) 1,000 mg PO DAILY 04/19/16 02/15/21 [Vitamin B-12] Multivitamin [Multivitamins] 1 tab PO DAILY 04/19/16 02/15/21 [place]a-3S/Dha/Epa/Fish Oil [Fish 1 tab PO BID 04/19/16 02/15/21 Oil 1,200 mg Softgel] atenoloL [Atenolol] 25 mg PO DAILY 04/19/16 02/15/21 hydroCHLOROthiazide [Hydrodiuril] 25 mg PO DAILY 04/19/16 02/15/21 Meloxicam 15 mg PO DAILY PRN 12/23/19 02/15/21 Mirabegron [Myrbetriq] 25 mg DAILY 12/23/19 02/15/21 Montelukast [Singulair] 10 mg DAILY 12/23/19 02/15/21 Pantoprazole [Protonix] 40 mg PO DAILY 12/23/19 02/15/21 Albuterol Sulfate [Proair 1 puffs INH Q4HR PRN 02/15/21 02/15/21 Respiclick] Benzonatate [Tessalon] 100 mg PO TID 02/15/21 02/15/21 Cetirizine [ZyrTEC] 10 mg PO DAILY 02/15/21 02/15/21 Fluticasone Furoate [Arnuity 1 puffs INH DAILY 02/15/21 02/15/21 Ellipta] Nortriptyline [Pamelor] 10 mg PO DAILY PRN 02/15/21 02/15/21 Tiotropium [place] [Spiriva] 1 puffs INH DAILY 02/15/21 02/15/21 Apixaban [Eliquis] 1 tab PO BID #60 tablet 09/04/22 Betamethasone Aug 0.05% Cream 1 applic TOP DAILY 09/04/22 09/04/22 [Diprolene AF 0.05% Cream] Cholecalciferol [Vitamin D3] 25 mcg PO DAILY 09/04/22 09/04/22 Diltiazem HCl [Cardizem LA] 120 mg PO DAILY #30 tab 09/04/22 Tiotropium [place] [Spiriva] 1 puffs INH DAILY 09/04/22 09/04/22 Triamcinolone 0.1% Cream [Kenalog 1 applic TOP BID 09/04/22 09/04/22 0.1% Cream] - Allergies Allergies/Adverse Reactions: Allergies Allergy/AdvReac Type Severity Reaction Status Date / Time diclofenac Allergy Rash Verified 09/04/22 15:40 gabapentin Allergy Itching Verified 09/04/22 15:40 iodine Allergy Unknown Verified 09/04/22 15:40 Sulfa (Sulfonamide Allergy Rash Verified 09/04/22 14:59 Antibiotics) magalis Allergy Unknown Uncoded 09/04/22 14:59 dander Allergy Unknown Uncoded 09/04/22 14:59 - Social History Does the pt smoke?: No Smoking Status: Never smoker Does the pt drink ETOH?: No Does the pt have substance abuse?: No - Immunizations Immunizations are current?: Yes - POLST Patient has POLST: No PD ED PE NORMAL - Vitals Vital signs reviewed: Yes (tachycardic) - General General: Alert and oriented X 3, No acute distress - HEENT HEENT: PERRL, EOMI - Neck Neck: Supple, no meningeal sign, No bony TTP - Cardiac Cardiac: No murmur, Other (tachy, reg) - Respiratory Respiratory: No respiratory distress, Other (tight/wheezy, non focal) - Abdomen Abdomen: Non tender - Extremities Extremities: Other (RLE with edema, dressed from wound care.) - Neuro Neuro: Alert and oriented X 3, Normal speech - Psych Psych: Normal mood, Normal affect Results - Vitals Vitals: Vital Signs - 24 hr 09/04/22 09/04/22 09/04/22 14:59 15:46 15:53 Temperature 36.5 C Heart Rate 139 H 82 120 H Respiratory 16 23 25 H Rate Blood Pressure 147/98 H 143/83 H 125/85 H O2 Saturation 96 92 93 09/04/22 09/04/22 09/04/22 16:09 16:12 16:25 Temperature Heart Rate 72 71 114 H Respiratory 16 22 26 H Rate Blood Pressure 113/66 97/74 125/76 O2 Saturation 94 93 91 L 09/04/22 09/04/22 09/04/22 16:53 17:21 17:25 Temperature Heart Rate 140 H 133 H 76 Respiratory 21 25 H 23 Rate Blood Pressure 133/87 H 157/106 H 114/67 O2 Saturation 93 97 96 09/04/22 09/04/22 09/04/22 17:45 17:58 18:00 Temperature Heart Rate 138 H 68 71 Respiratory 28 H 26 H Rate Blood Pressure 111/94 H 108/69 O2 Saturation 93 96 09/04/22 09/04/22 09/04/22 18:23 19:24 19:27 Temperature Heart Rate 71 141 H 73 Respiratory 21 17 95 H Rate Blood Pressure 111/57 L 181/127 H 103/81 H O2 Saturation 93 94 95 09/04/22 09/04/22 09/04/22 19:32 19:41 19:49 Temperature 36.8 C Heart Rate 72 72 Respiratory 16 15 Rate Blood Pressure 117/63 105/69 O2 Saturation 95 95 Oxygen O2 Source Room air - EKG (time done) 1516 Rate: Rate (enter#) (135) Rhythm: Sinus tachycardia Chandler: Normal Intervals: Normal [place] Ischemia: ST depression (lateral). No: ST elevation c/w ischemia 1550 Rate: Rate (enter#) (118) Rhythm: Atrial flutter Chandler: Normal QRS: Normal Ischemia: Non specific changes - Labs Labs: Laboratory Tests 09/04/22 09/04/22 09/04/22 15:31 15:31 15:31 WBC 7.6 RBC 5.08 Hgb 14.6 Hct 45.0 MCV 88.6 MCH 28.7 MCHC 32.4 RDW 13.2 Plt Count 206 MPV 10.0 Neut # (Auto) 5.7 Lymph # (Auto) 1.1 L Hill # (Auto) 0.8 Eos # (Auto) 0.0 Baso # (Auto) 0.0 Absolute Nucleated RBC 0.00 Nucleated RBC % 0.0 Sodium 132 L Potassium 3.9 Chloride 94 L Carbon Dioxide 28 Anion Gap 10.0 BUN 14 Creatinine 0.8 Estimated GFR (MDRD) 69 L Glucose 124 H Calcium 9.3 Total Bilirubin 0.8 AST 26 ALT 22 Alkaline Phosphatase 58 Troponin I High Sens 24.6 H* Total Protein 8.1 Albumin 3.6 Globulin 4.5 H Albumin/Globulin Ratio 0.8 L Lipase 28 TSH 09/04/22 15:31 WBC RBC Hgb Hct MCV MCH MCHC RDW Plt Count MPV Neut # (Auto) Lymph # (Auto) Hill # (Auto) Eos # (Auto) Baso # (Auto) Absolute Nucleated RBC Nucleated RBC % Sodium Potassium Chloride Carbon Dioxide Anion Gap BUN Creatinine Estimated GFR (MDRD) Glucose Calcium Total Bilirubin AST ALT Alkaline Phosphatase Troponin I High Sens Total Protein Albumin Globulin Albumin/Globulin Ratio Lipase TSH 2.41 - Rads (name of study) CTA Chest Radiology: Final report received, EMP read indepedently PD Medical Decision Making - ED course Complexity details: reviewed results (TSH reviewed and normal. CMP reviewed showing mild hyponatremia otherwise unremarkable. CBC is normal.) ED course: 82-year-old woman presents with asymptomatic exquisitely regular high heart rate. Although it looks to be sinus rhythm on the EKG, it is exquisitely regular and given the lack of symptoms I think an atrial arrhythmia more likely. She was administered 10 mg of IV diltiazem and it became more clear that she was in atrial flutter on the second EKG and the diltiazem was repeated for rate control. Diltiazem did need to be repeated a couple times but she came rate controlled and was clearly in a flutter on the monitor. CT of the chest showing: IMPRESSION: 1.No acute pulmonary embolus. 2.Scattered bilateral tree-in-bud nodularity is most prominent in the right upper lobe, and is most likely infectious or inflammatory in etiology. 3.Scattered mild subpleural reticulations and traction bronchiectasis are suspicious for chronic interstitial lung disease. 4.Increased number of small mediastinal and hilar lymph nodes, which are nonspecific and likely reactive. We will treat with Rocephin here. She is already planning on Starting cephalexin tonight for cellulitis in the right ankle as prescribed by her alternative financing specialist. Troponin noted and slightly positive likely due to strain from A. fib. Doubt ischemic heart disease given the clinical picture. Departure - Departure Disposition: 01 Home, Self Care Clinical Impression: Atrial flutter Qualifiers: Atrial flutter type: typical Qualified Code(s): I48.3 - Typical atrial flutter Pneumonia Qualifiers: Pneumonia type: due to unspecified organism Laterality: right Lung location: upper lobe of lung Qualified Code(s): J18.9 - Pneumonia, unspecified organism Condition: Good Record reviewed to determine appropriate education?: Yes Instructions: Atrial Fibrillation Dc, Pneumonia Dc Prescriptions: Diltiazem HCl [Cardizem LA] 120 mg PO DAILY #30 tab Apixaban [Eliquis] 1 tab PO BID #60 tablet Comments: You are seen today for atrial flutter which is rapid regular heart rate. For this follow-up with your primary care physician, would consider referral to a hat lacer. In the meantime I am putting you on medications to control your heart rate and a blood thinner. We also noted you have a mild pneumonia on CT, okay to Take the antibiotic that your piercing specialist gave you, it should treat both. Return for new or worsening symptoms. Follow-up with your primary care physician, next available appointment calling tomorrow. Discharge Date/Time: 09/04/22 19:50
--- NOTE | 2022-09-04 15:43 | XRAY Report ---
PROCEDURE: Chest 1 View X-Ray INDICATIONS: Chest pain TECHNIQUE: One view of the chest was acquired. COMPARISON: 08/19/2018, [address] FINDINGS: Surgical changes and devices: None. Lungs and pleura: Prominent interstitium. Possible trace effusion versus pleural thickening. No dens e consolidation. Prominent appearance of the right hilum Mediastinum: Mediastinal contours appear normal. Heart size is normal. Mitral annular calcificatio ns. Bones and chest wall: No suspicious bony lesions. Overlying soft tissues appear unremarkable. IMPRESSION: Suspected increased interstitial marking compared to prior radiograph, along with prominent appearanc e of the right hilum. This could represent progression of fibrotic changes as described on prior ches t CT, versus edema or atypical infection. Consider CT follow-up. Reviewed by: Evangelista Ponce MD on 09/04/2022 3:42 PM PST Approved by: Evangelista Ponce MD on 09/04/2022 3:42 PM PST Station ID: [id number]
[2022-09-04 15:50] LABS: ALBUMIN 3.6 g/dL (3.2-5.5); ALBUMIN/GLOBULIN RATIO 0.8 (1.0-2.2); BILIRUBIN,TOTAL 0.8 mg/dL (0.2-1.0); CALCIUM 9.3 mg/dL (8.5-10.3); CREATININE 0.8 mg/dL (0.4-1.0); POTASSIUM 3.9 mmol/L (3.5-5.0); TOTAL PROTEIN 8.1 g/dL (6.7-8.2)
[2022-09-04] MEDS ORDERED: diltiaZEM CD 120 MG CAPSULE PO STA ×2 (16:43→19:00)
[2022-09-04] MEDS ORDERED: iohexoL-300 100 ML VIAL ONE (16:46)
[2022-09-04] MEDS ORDERED: iohexoL-300 100 ML VIAL IVP ONE (16:59)
--- NOTE | 2022-09-04 17:31 | CT Report ---
PROCEDURE: ANGIO CHEST W/WO INDICATIONS: Dyspnea, PE protocol CONTRAST: 80mL Omni 300 TECHNIQUE: After the administration of intravenous contrast, 2 mm axial images were acquired from the pulmonary apices to the posterior costophrenic angles during the arterial phase. In addition, 1 mm lung kernel and 5 mm soft tissue kernel reconstructions were performed. 3-dimensional coronal oblique maximum int ensity projection (MIP) reformats, 8 mm axial MIP, and 5 mm coronal and sagittal MPR reformats were t hen performed through the thorax. For radiation dose reduction, the following was used: automated exp osure control, adjustment of mA and/or kV according to patient size. COMPARISON: Chest radiographs 09/04/2022. CT chest 02/19/2020 FINDINGS: Image quality: Excellent. Pulmonary arteries: Pulmonary arteries are normal in size, and demonstrate no intraluminal filling d efects to suggest central pulmonary embolism. Lungs and pleura: Posterior tree-in-bud nodularity is seen in the right upper lobe and to a lesser ex tent within the bilateral lower lobes, which is suspicious for an infectious or inflammatory process. Subpleural reticulations and traction bronchiectasis are seen bilaterally. There is biapical pleural -parenchymal scarring and traction bronchiectasis. No pleural effusions or pneumothorax. Central and peripheral airways are patent. Mediastinum: Heart size is normal, without pericardial effusion. Mitral annular calcifications are present. Increased number of small mediastinal lymph nodes, which are nonspecific and are most likely reactive. Thoracic aorta is normal in caliber and enhancement. Esophagus is normal in caliber, with out hiatal hernia. Bones and chest wall: No suspicious bony lesions. Ribs and thoracic spine appear intact throughout. No axillary or supraclavicular adenopathy. The thyroid is normal in size. Abdomen: A few coarse calcifications are seen in the liver. There is a 2.6 cm cyst in the central li edison. Visualized upper abdominal solid organs appear normal in the early arterial phase of enhancement . IMPRESSION: 1.No acute pulmonary embolus. 2.Scattered bilateral tree-in-bud nodularity is most prominent in the right upper lobe, and is most l ikely infectious or inflammatory in etiology. 3.Scattered mild subpleural reticulations and traction bronchiectasis are suspicious for chronic inte rstitial lung disease. 4.Increased number of small mediastinal and hilar lymph nodes, which are nonspecific and likely react june. Reviewed by: Yimi Cleary MD on 09/04/2022 5:30 PM PST Approved by: Yimi Cleary MD on 09/04/2022 5:30 PM PST Station ID: [id number]
[2022-09-04] MEDS ORDERED: cefTRIAXone 1 GM in SODIUM CHLORIDE 0.9% MINIBAG 100 ML IV STA (18:05)
[2022-09-04] MEDS ORDERED: diltiaZEM INJ 5 MG/ML VIAL IVP ONE (19:00)
[2022-09-04 19:50] VITALS: BP 105/69
== END 2022-09-04 19:50 | disposition home or self-care (01) ==
LOC: ED 14:50
DX: I48.3 Typical atrial flutter (principal); J18.9 Pneumonia, unspecified organism; I10 Essential (primary) hypertension
CPT/HCPCS: 36415; 71045; 71275; 80053; 83690; 84443; 84484; 85025; 93005; 96365; 96375; 96376; 99284; A9270; Q9967

== ENCOUNTER 2022-10-18 10:11 | Outpatient (CLI) | payer MEDICARE, OTHER ==
--- NOTE | 2022-10-18 12:17 | SLEEP CARE CONSULTATION ---
Information from patient questionnaire entered by Geni Olvera. I have reviewed and concur with the information entered by Geni Olvera. This document represents the service I personally performed and the decisions made by me, Jess Gann ARNP. History of Present Illness Service Date and Time: 10/18/2022 1011 Reason for Visit: New patient, Previously diagnosed sleep apnea, sleep apnea on CPAP therapy Accompanied by: Spouse Chief Complaint: reports: Unrefreshed sleep, Excessive daytime sleepiness, Frequent awakenings at night, Other (UPDATE SUPPLIES ) Usual bedtime: 9-11 PM Time it takes to fall asleep: 1 hour Snores at night: No Observed to quit breathing while asleep: No Sleeps alone due to snoring: No Number of times waking at night: 3-4 Reasons for waking at night: reports: Bathroom Toss, Turn, or Twitch while sleeping: Yes Recalls having dreams: No Usually gets out of bed at: 0530-7 Feels refreshed in the morning: No Morning headache: No Sleepy or fatigued during the day: Yes Ever fallen asleep while driving: No Takes day naps: No Dreams during day naps: No Prior sleep studies: Yes Additional HPI information: RAMONE CARO was previously diagnosed to have mild, AHI 5.2, obstructive sleep apnea-hypopnea syndrome on 01/28/2018 at [facility] and comes in today with spouse to establish care for CPAP therapy. - Parasomnia Symptoms Ever been unable to move upon waking from sleep: No Walks in sleep: No Talks in sleep: No Ever acted out dreams in sleep: No Ever felt weak in the knees when startled or emotional: No Bothered by creepy, crawly, restless sensations in legs: Yes Problems with memory or concentration: No CPAP Compliance Data - Data Reviewed with Patient Average duration of nightly device use: 5 hours 5 minutes Compliance rate %: 70 ( days) Current pressure setting (cmH2O): 7-14 (reg 10.8) Average residual AHI: 1.3 Central apnea: 0 Obstructive apnea: 0.4 Hypopnea: 0.9 Average large leak: 0 Compliance data discussion: She has been getting her supplies at [email or web address]. She has a Dreamstation 2, CPAP. She is using a full face, Resmed F20 size small. She has backup masks. Subjective Patient concerns: reports: other (redness on top of nose, lines on cheeks). denies: aerophagia, mask discomfort, air blowing in eyes, mask leak noise, condensation in mask/hose, nasal congestion, dry mouth, nose, throat, epistaxis Observed to snore while using device: No Current pressure setting perceived as: comfortable On therapy, patient: reports: sleeping better, awakening more refreshed, being more awake and alert during the day, more rested overall. 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 Patient is and lives in [place]. Have you smoked in the past 12 months: No Cigarettes per day (20/pack): 20 Years of smokin Quit date: 1972 Smoking Pack Years: 15.0 Alcohol use: Yes Alcohol amount and frequency: 1-2 WEEKLY Caffeine use: Yes Caffeine amount and frequency: 2 CUPS COFFEE DAILY 6-11 Am Family History Family history of sleep disordered breathing: No Allergies and Home Medications Known drug allergies: Yes (diclofenac, gabapentin, iodine, sulfa) Drug allergies reviewed: Yes Home medication list reviewed: Yes Allergy and home medication list: Medications: HCTZ Diltiazem Pregabalin Eliquis Fish oil B12 D3 Pantoprazole Trelogy Melatonin Montelukast Review of Systems Weight loss over past 5 years: 5 Cardiovascular: reports: irregular heart rate or pulse, leg or foot swelling, have to sleep sitting up Gastrointestinal: reports: heartburn Urinary: reports: incontinence, frequency, urgency Neurological: reports: gait or balance problems Psychiatric: reports: anxiety, depression Ear/Nose/Throat: reports: sinus problems, dry mouth/throat, wisdom teeth removed Endocrine: reports: sluggishness, too hot or cold, increased appetite Musculoskeletal: reports: joint pain, neck pain, back pain Immunologic: reports: sneezing, allergies to food or environment Physical Exam Vital signs obtained and entered by: GENI Qureshi MA Blood Pressure: 128/72 (LEFT ARM) Cuff size: regular Heart Rate: 60 O2 Saturation: 97 Height: 5 ft 2 in Weight: 176 lb 12.8 oz Body Mass Index: 32.3 BMI Classification: Obese Neck circumference: 14.75 Heart: regular rate and rhythm Lungs: clear bilaterally Impression and Plan 1. Obstructive Sleep Apnea-Hypopnea Syndrome, mild, with good treatment compliance and good apnea control. On CPAP therapy, the patient has better sleep quality and is more rested overall. Patient complains of getting redness on bridge of nose and some lines on her cheeks. She has tried other masks and this ResMed AirTouch F20 is the best fit. She is using a small headgear and small cushion. I tried a medium cushion of AirFit F20 mask with the small headgear and this appears to fit better. Ramone thought it was comfortable and will try this at home. Patient's apnea severity and rationale for treatment to reduce apnea, improve sleep quality and reduce cardiovascular and cerebrovascular events was reviewed. I also reviewed the benefit of consistent device use of CPAP for hypertension, arrhythmia and gastric reflux. 2. Obesity, unspecified. Currently patients BMI is 32.3. Obesity increases the risk of apnea, CPAP pressure requirements and overall health risks especially cardiovascular and diabetes. Thus patient is advised to lose weight. * Continue auto CPAP pressure at 7-14 cmH2O * Update supplies * Notify me if snoring with mask or feeling that the pressure is too much or too little * Attempt to lose weight * Call this office if any problems using CPAP * Return for follow up in 1 year, or sooner if concerns arise Counseling Topics: Spare mask, Weight loss health impact Visit Type: In Office Time Spent with Patient (minutes): 38 Provider Statement: I spent 100% of the Face to Face Visit with the patient with greater than 50% spent counseling the patient and coordination of care.
[2022-10-18 12:18] VITALS: BP 128/72
== END 2022-10-18 10:12 | disposition home or self-care (01) ==
LOC: SC 10:11
PROVIDERS: ATTEND Nurse Practitioner Family
DX: G47.33 Obstructive sleep apnea (adult) (pediatric) (principal); Z87.891 Personal history of nicotine dependence; E66.9 Obesity, unspecified; Z68.32 Body mass index [BMI] 32.0-32.9, adult
CPT/HCPCS: 99203; G0463; 99212

== ENCOUNTER 2022-10-24 10:44 | Outpatient (CLI) | payer MEDICARE, OTHER ==
--- NOTE | 2022-10-25 10:42 | Mammography Report ---
BILATERAL DIGITAL SCREENING MAMMOGRAM 3D/2D: 10/24/2022 CLINICAL: Family history of breast cancer. Routine screening. Comparison is made to exams dated: 07/14/2018 mammogram, 07/07/2017 mammogram, and 09/29/2015 mammogra m - [facility]. Both breasts are heterogeneously dense, which may obscure small masses (category c / 51-75% glandular tissue). There are benign calcifications in the right breast. There also are benign post operative findings i n the left breast. No significant masses, calcifications, or other findings are seen in either breast. There has been no significant interval change. IMPRESSION: BENIGN There is no mammographic evidence of malignancy. A 1 year screening mammogram is recommended. Based on the Tyrer Cuzick model (a risk assessment model) the patients lifetime risk is 1.2% and her 10 year risk is 0.0%. According to the ACR, ACS, and NCCN guidelines, an annual breast MRI exam sanjeev g with mammogram is recommended if the patients lifetime risk is 20% or greater. This exam was interpreted at Station ID: [id number]. NOTE: For mammograms, a report in lay terms will be sent to the patient. Approximately 15% of breast malignancies will not be visualized mammographically. In the management of a palpable breast mass, a negative mammogram must not discourage biopsy of a clinically suspicious lesion. Electronically Signed By: Cortes dubois/evon:10/24/2022 12:41:44 letter sent: No_Letter ACR BI-RADS Category 2: Benign Finding(s) 3342F PARENCHYMAL PATTERN: (D) - The breast(s) demonstrate(s) heterogeneously dense fibroglandular lynnette pope. BI-RADS CATEGORY: (2) - 2 Mammogram [id number] 1 year screening LATERALITY: (B)
== END 2022-10-24 10:45 | disposition home or self-care (01) ==
LOC: DI.N 10:44
DX: Z12.31 Encounter for screening mammogram for malignant neoplasm of breast (principal); Z80.3 Family history of malignant neoplasm of breast

== ENCOUNTER 2023-01-14 16:19 | Outpatient (CLI) | payer MEDICARE, OTHER ==
[2023-01-14 20:44] LABS: BASOPHILS % (AUTO) 0.5 %; EOSINOPHILS # (AUTO) 0.2 10^3/uL (0.0-0.7); EOSINOPHILS % (AUTO) 2.9 %; HCT - HEMATOCRIT 41.6 % (37.0-47.0); HGB - HEMOGLOBIN 13.4 g/dL (12.0-16.0); LYMPHOCYTES % (AUTO) 23.7 %; MEAN CORPUSCULAR HEMOGLOBIN 28.5 pg (27.0-31.0); MEAN CORPUSCULAR HGB CONC 32.2 g/dL (32.0-36.0); MEAN CORPUSCULAR VOLUME 88.3 fL (81.0-99.0); MEAN PLATELET VOLUME 10.9 fL (7.9-10.8); MONOCYTES % (AUTO) 11.4 %; NEUTROPHILS # (AUTO) 5.1 10^3/uL (1.5-6.6); PLT - PLATELET COUNT 213 10^3/uL (130-450); RED BLOOD COUNT 4.71 10^6/uL (4.20-5.40); RED CELL DISTRIBUTION WIDTH 13.6 % (12.0-15.0); WHITE BLOOD COUNT 8.4 x10^3/uL (4.8-10.8)
== END 2023-01-14 16:20 | disposition home or self-care (01) ==
LOC: LAB.N 16:19
PROVIDERS: ATTEND Internal Medicine
DX: R19.7 Diarrhea, unspecified (principal)
CPT/HCPCS: 36415; 85025

== ENCOUNTER 2023-01-15 08:00 | Outpatient (CLI) | payer MEDICARE, OTHER ==
[2023-01-15 13:12] LABS: FECAL OCCULT BLOOD (FIT) NEGATIVE (NEGATIVE)
[2023-01-16 04:08] LABS: ADENOVIRUS F 40/41 Not Detected (Not Detected); ASTROVIRUS Not Detected (Not Detected); C DIFFICILE TOXIN A/B Not Detected (Not Detected); CAMPYLOBACTER Not Detected (Not Detected); CRYPTOSPORIDIUM Not Detected (Not Detected); CYCLOSPORA CAYETANENSIS Not Detected (Not Detected); ENTAMOEBA HISTOLYTICA Not Detected (Not Detected); ENTEROAGGREGATIVE E COLI Not Detected (Not Detected); ENTEROPATHOGENIC E COLI Not Detected (Not Detected); ENTEROTOXIGENIC E COLI Not Detected (Not Detected); GIARDIA LAMBLIA Not Detected (Not Detected); NOROVIRUS GI/GII Not Detected (Not Detected); PLESIOMONAS SHIGELLOIDES Not Detected (Not Detected); ROTAVIRUS A Not Detected (Not Detected); SALMONELLA Not Detected (Not Detected); SAPOVIRUS Not Detected (Not Detected); SHIGA-TOXIN-PRODUCING E COLI Not Detected (Not Detected); SHIGELLA/ENTEROINVASIVE E COLI Not Detected (Not Detected); VIBRIO Not Detected (Not Detected); VIBRIO CHOLERAE Not Detected (Not Detected); YERSINIA ENTEROCOLITICA Not Detected (Not Detected)
== END 2023-01-15 23:59 | disposition home or self-care (01) ==
LOC: LAB.R 08:00
PROVIDERS: ATTEND Internal Medicine
DX: R19.7 Diarrhea, unspecified (principal); B20 Human immunodeficiency virus [HIV] disease; A08.4 Viral intestinal infection, unspecified
CPT/HCPCS: 81599; 82274; 87493; 87507

== ENCOUNTER 2023-04-15 08:11 | Outpatient (CLI) | payer MEDICARE, OTHER ==
[2023-04-15 08:49] LABS: BASOPHILS % (AUTO) 0.6 %; EOSINOPHILS # (AUTO) 0.3 10^3/uL (0.0-0.7); EOSINOPHILS % (AUTO) 3.7 %; HCT - HEMATOCRIT 41.8 % (37.0-47.0); HGB - HEMOGLOBIN 13.5 g/dL (12.0-16.0); LYMPHOCYTES # (AUTO) 1.7 10^3/uL (1.5-3.5); LYMPHOCYTES % (AUTO) 24.9 %; MEAN CORPUSCULAR HEMOGLOBIN 28.6 pg (27.0-31.0); MEAN CORPUSCULAR HGB CONC 32.3 g/dL (32.0-36.0); MEAN CORPUSCULAR VOLUME 88.6 fL (81.0-99.0); MONOCYTES # (AUTO) 0.8 10^3/uL (0.0-1.0); MONOCYTES % (AUTO) 10.8 %; NEUTROPHILS # (AUTO) 4.1 10^3/uL (1.5-6.6); NEUTROPHILS % (AUTO) 59.6 %; PLT - PLATELET COUNT 190 10^3/uL (130-450); RED BLOOD COUNT 4.72 10^6/uL (4.20-5.40); RED CELL DISTRIBUTION WIDTH 14.2 % (12.0-15.0); WHITE BLOOD COUNT 6.9 x10^3/uL (4.8-10.8)
[2023-04-15 09:18] LABS: THYROID STIMULATING HORMONE 4.89 uIU/mL (0.34-5.60)
[2023-04-15 11:01] LABS: ALBUMIN 3.8 g/dL (3.2-5.5); ALBUMIN/GLOBULIN RATIO 1.4 (1.0-2.2); ALKALINE PHOSPHATASE 58 IU/L (42-121); ALT ALANINE AMINOTRANSFERASE 17 IU/L (10-60); AST ASPARTATE AMINOTRANSFERASE 14 IU/L (10-42); BILIRUBIN,TOTAL 0.6 mg/dL (0.2-1.0); BUN - BLOOD UREA NITROGEN 14 mg/dL (6-20); CALCIUM 9.4 mg/dL (8.5-10.3); CARBON DIOXIDE - CO2 29 mmol/L (21-32); CHLORIDE 104 mmol/L (101-111); CHOL/HDL RATIO 3.1 (<4.4); CHOLESTEROL 135 mg/dL; CREATININE 0.7 mg/dL (0.6-1.3); GFR - MDRD 80 (>89); GLUCOSE 108 mg/dL (74-104); HDL CHOLESTEROL 43 mg/dL; LDL CHOLESTEROL,CALCULATED 76 mg/dL; LDL/HDL RATIO 1.8 (<4.4); SODIUM 138 mmol/L (135-145); TOTAL PROTEIN 6.5 g/dL (6.4-8.9); TRIGLYCERIDES 82 mg/dL (48-352); VLDL CHOLESTEROL 16 mg/dL
[2023-04-15 11:07] LABS: ESTIMATED AVERAGE GLUCOSE 123 mg/dL (70-100); HEMOGLOBIN A1c% 5.9 % (4.27-6.07)
== END 2023-04-15 08:12 | disposition home or self-care (01) ==
LOC: LAB 08:11
PROVIDERS: ATTEND Nurse Practitioner Family
DX: R73.03 Prediabetes (principal); I48.91 Unspecified atrial fibrillation; I10 Essential (primary) hypertension
CPT/HCPCS: 36415; 80053; 80061; 83036; 83721; 84443; 85025

== ENCOUNTER 2023-08-07 11:15 | Outpatient (CLI) | payer MEDICARE, OTHER ==
--- NOTE | 2023-08-07 16:24 | XRAY Report ---
PROCEDURE: Chest 2V INDICATIONS: COUGH DUE TO COVID-19 INFECTION TECHNIQUE: 2 views of the chest were acquired. COMPARISON: Chest radiograph 09/04/[address] 09/04/2022 FINDINGS: Surgical changes and devices: None. Lungs and pleura: No pleural effusions or pneumothorax. Lungs are mildly hyperexpanded. Biapical pl eural-parenchymal scarring. Mild bilateral chronic interstitial markings, which appears similar when compared to the prior exam. Mediastinum: Mediastinal contours appear normal. Heart size is normal. Bones and chest wall: No suspicious bony lesions. Overlying soft tissues appear unremarkable. IMPRESSION: No acute cardiopulmonary abnormality. Stable interstitial prominence and mildly hyperexpanded lungs. Reviewed by: Yimi Cleary MD on 08/07/2023 4:23 PM PST Approved by: Yimi Cleary MD on 08/07/2023 4:23 PM PST Station ID: [id number]
== END 2023-08-07 11:30 | disposition home or self-care (01) ==
LOC: DI.N 11:15
PROVIDERS: ATTEND Family Medicine
DX: U07.1 COVID-19 (principal); R05.8 Other specified cough

== ENCOUNTER 2023-10-21 08:45 | Outpatient (CLI) | payer MEDICARE, OTHER ==
[2023-10-21 12:49] LABS: ESTIMATED AVERAGE GLUCOSE 114 mg/dL (70-100); HEMOGLOBIN A1c% 5.6 % (4.27-6.07)
== END 2023-10-21 08:46 | disposition home or self-care (01) ==
LOC: LAB.N 08:45
PROVIDERS: ATTEND Nurse Practitioner Family
DX: R73.03 Prediabetes (principal)
CPT/HCPCS: 36415; 83036

== ENCOUNTER 2023-11-14 11:01 | Outpatient (CLI) | payer MEDICARE, OTHER ==
--- NOTE | 2023-11-14 11:35 | Sleep Patient Instructions ---
Sleep Center Visit Summary - Patient Visit Information Reason for Visit: Annual follow-up - Patient Instructions Additional Instructions: You will continue with CPAP therapy with pressure changed to 7-11 cmH2O. A supply prescription will be updated with your DME. We encourage you to continue to try to lose weight. Please follow up with the sleep care office in 1 year. - Clinic Information Contact: [facility] [address] [place] [address] [email or web address] T: [phone]
--- NOTE | 2023-11-14 11:59 | SLEEP CARE CONSULTATION ---
Information from patient questionnaire entered by Geni Olvera. I have reviewed and concur with the information entered by Geni Olvera. This document represents the service I personally performed and the decisions made by me, Jess Gann ARNP. History of Present Illness Service Date and Time: 11/14/2023 1101 Previous diagnosis: Mild, Obstructive Sleep Apnea-Hypopnea Syndrome AHI: 5.2 (01/28/2018) Reason for follow up: annual (LAST SEEN 10/2022) Accompanied by: Spouse Equipment type: CPAP (DREAMSTATION 2; s/u 2018MACHINE NEEDED) Equipment obtained from: [employer] (getting supplies) Mask style: Full face Mask brand: Resmed (AirFit F20, medium cushion) Backup mask available: No Last cushion change: every month Prior sleep studies: Yes HPI additional information: RAMONE CARO was diagnosed to have mild, AHI 5.2, obstructive sleep apnea- hypopnea syndrome and returned today with spouse for CPAP therapy annual follow- up. Sleep Study - Results Prior sleep studies: Yes CPAP Compliance Data - Data Reviewed with Patient Average duration of nightly device use: 4 hours 8 mins Compliance rate %: 43.5 (05/12/2023-11/11/2023; 165/184 days used) Current pressure setting (cmH2O): 7-14 Average residual AHI: 0.9 Average large leak: 0 L/min Subjective Missed days of use due to: reports: other (not sleeping, gets up and does not go back to sleep sometimes) Patient concerns: reports: mask discomfort, other (makes her nervous sometimes; headaches). denies: aerophagia, air blowing in eyes, mask leak noise, condensation in mask/hose, nasal congestion, dry mouth, nose, throat, epistaxis Observed to snore while using device: No Current pressure setting perceived as: comfortable On therapy, patient: reports: sleeping better, awakening more refreshed, being more awake and alert during the day, more rested overall. denies: drowsiness while driving Initial [place] Sleepiness Scale score: 7 (10/18/22) Current [place] Sleepiness Scale score: 8 Allergies and Home Medications Known drug allergies: Yes (as listed) Drug allergies reviewed: Yes Home medication list reviewed: Yes (no changes) Allergy and home medication list: Allergies diclofenac Allergy (Verified 10/18/22 11:47) Rash gabapentin Allergy (Verified 10/18/22 11:47) Itching iodine Allergy (Verified 10/18/22 11:47) Unknown Sulfa (Sulfonamide Antibiotics) Allergy (Verified 10/18/22 11:47) Rash plus diarrhea magalis Allergy (Uncoded 10/18/22 11:47) Unknown dander Allergy (Uncoded 10/18/22 11:47) Unknown Review of Systems Review of systems same as previous: Yes (no changes) Physical Exam Vital signs obtained and entered by: JESS ALEXANDER-Kiera Blood Pressure: 135/67 Cuff size: regular (left arm) Heart Rate: 75 O2 Saturation: 95 Height: 5 ft 2 in Weight: 188 lb 3.2 oz Body Mass Index: 34.4 BMI Classification: Obese Impression and Plan 1. Obstructive Sleep Apnea-Hypopnea Syndrome, mild, with fair treatment compliance and good apnea control. On CPAP therapy, the patient has better sleep quality and is more rested overall. Her compliance was affected because sometimes she has anxiety about putting her mask on. She does actually get her mask on about 90% of the time but sometimes cannot sleep for more than 2 or 3 hours at night. She says if she can get 3 hours of sleep on her CPAP she feels well rested overall. I encouraged her to try to keep her mask on for longer periods of time when able to increase her compliance. She voiced understanding. She also says she gets headaches most mornings but is not sure why this is. She has excellent control of her sleep apnea with average pressure used at 11 cm H2O. But it does look like her pressure sometimes will go up to almost 14 cm H2O. The patients pressure will be changed to autoCPAP 7-11 cmH20 to try to reduce headaches. Patient advised to contact me if pressure change is uncomfortable so that it can be adjusted. Goals for apnea control discussed. Patient's apnea severity and rationale for treatment to reduce apnea, improve sleep quality and reduce cardiovascular and cerebrovascular events was reviewed. I also reviewed the benefit of consistent device use of CPAP for hypertension, arrhythmia (Afib), gastric reflux, asthma/COPD. 2. Obesity, unspecified. Currently patients BMI is 34.4. Obesity increases the risk of apnea, CPAP pressure requirements and overall health risks especially cardiovascular and diabetes. Thus patient is advised to lose weight. * Change auto CPAP pressure at 7-11 cmH2O * Update supply prescription * Notify me if snoring with mask or feeling that the pressure is too much or too little * Attempt to lose weight * Call this office if any problems using CPAP * Return for follow up in 12 months, or sooner if concerns arise Counseling Topics: Spare mask, Weight loss health impact Prescriptions: Device supplies Follow up with Sleep Care in: 1 year Visit Type: In Office Time Spent with Patient (minutes): 23 Provider Statement: I spent 100% of the Face to Face Visit with the patient with greater than 50% spent counseling the patient and coordination of care.
[2023-11-14 12:05] VITALS: BP 135/67; O2SAT 95
== END 2023-11-14 11:02 | disposition home or self-care (01) ==
LOC: SC 11:01
PROVIDERS: ATTEND Nurse Practitioner Family
DX: G47.33 Obstructive sleep apnea (adult) (pediatric) (principal); E66.9 Obesity, unspecified; Z68.34 Body mass index [BMI] 34.0-34.9, adult
CPT/HCPCS: 99213; G0463; 99212

== ENCOUNTER 2023-11-28 10:45 | Outpatient (CLI) | payer MEDICARE, OTHER ==
--- NOTE | 2023-11-28 15:53 | CT Report ---
PROCEDURE: Chest WO INDICATIONS: ILD TECHNIQUE: A CT scan of the chest was performed. Intravenous contrast media was not administered. Images were re corded and evaluated at appropriate window settings. Reformats: axial MIP of the chest, coronal and s agittal. For radiation dose reduction, the following was used: automated exposure control, adjustment of mA and/or kV according to patient size. COMPARISON: CT angiogram chest dated 09/04/2022. CT of the chest dated 02/19/2020. FINDINGS: Image quality: Diagnostic. Chest wall and lower neck: No thyroid nodule which requires sonographic follow up. No axillary or sup raclavicular adenopathy by size. Lungs and pleura: Moderate centrilobular emphysema is present within apical predominance. Peripheral interlobular septal thickening and mild honeycombing fibrosis is present consistent with moderate fib rotic changes. Groundglass radiopacities are present bilaterally. These findings have increased in se verity when compared with the prior CT from 02/19/2020 where there was little to no peripheral interlo bular septal thickening or honeycombing. Mediastinum: Heart size is normal. No pericardial effusion. No large vessel abnormality. No mediastin al adenopathy by size criteria. Bones: No aggressive osseous abnormality. Upper Abdomen: Unremarkable. IMPRESSION: 1. Groundglass radiopacities, peripheral interlobular septal thickening and peripheral honeycombing c onsistent with pulmonary fibrosis. Findings of increased in extent when compared with the prior CT da ephraim 02/19/2020. Reviewed by: Patricia Matamoros MD on 11/28/2023 3:52 PM PDT Approved by: Patricia Mtaamoros MD on 11/28/2023 3:52 PM PDT Station ID: [id number]
== END 2023-11-28 10:46 | disposition home or self-care (01) ==
LOC: DI 10:45
PROVIDERS: ATTEND Internal Medicine Pulmonary Disease
DX: J84.9 Interstitial pulmonary disease, unspecified (principal)

== ENCOUNTER 2023-12-04 13:45 | Outpatient (CLI) | payer MEDICARE, OTHER ==
[2023-12-04 17:40] LABS: BASOPHILS # (AUTO) 0.1 10^3/uL (0.0-0.1); BASOPHILS % (AUTO) 0.6 %; EOSINOPHILS # (AUTO) 0.5 10^3/uL (0.0-0.7); HGB - HEMOGLOBIN 13.2 g/dL (12.0-16.0); LYMPHOCYTES # (AUTO) 1.7 10^3/uL (1.5-3.5); LYMPHOCYTES % (AUTO) 19.5 %; MEAN CORPUSCULAR HEMOGLOBIN 27.8 pg (27.0-31.0); MEAN CORPUSCULAR HGB CONC 31.4 g/dL (32.0-36.0); MEAN CORPUSCULAR VOLUME 88.6 fL (81.0-99.0); MONOCYTES # (AUTO) 1.2 10^3/uL (0.0-1.0); MONOCYTES % (AUTO) 13.3 %; NEUTROPHILS # (AUTO) 5.3 10^3/uL (1.5-6.6); NEUTROPHILS % (AUTO) 59.9 %; PLT - PLATELET COUNT 240 10^3/uL (130-450); RED BLOOD COUNT 4.74 10^6/uL (4.20-5.40); RED CELL DISTRIBUTION WIDTH 14.1 % (12.0-15.0); WHITE BLOOD COUNT 8.8 x10^3/uL (4.8-10.8)
[2023-12-04 18:28] LABS: ALBUMIN 3.8 g/dL (3.2-5.5); ALBUMIN/GLOBULIN RATIO 1.1 (1.0-2.2); BILIRUBIN,TOTAL 0.6 mg/dL (0.2-1.0); CALCIUM 9.8 mg/dL (8.5-10.3); CREATININE 0.6 mg/dL (0.6-1.3); POTASSIUM 3.7 mmol/L (3.5-4.5); TOTAL PROTEIN 7.3 g/dL (6.4-8.9)
== END 2023-12-04 14:00 | disposition home or self-care (01) ==
LOC: LAB.N 13:45
PROVIDERS: ATTEND Family Medicine
DX: I10 Essential (primary) hypertension (principal); R53.83 Other fatigue
CPT/HCPCS: 36415; 80053; 84443; 85025

== ENCOUNTER 2023-12-17 08:58 | Outpatient (CLI) | payer MEDICARE, OTHER ==
[2023-12-17 09:32] LABS: CALCIUM 9.4 mg/dL (8.5-10.3); CREATININE 0.9 mg/dL (0.6-1.3); POTASSIUM 3.9 mmol/L (3.5-4.5)
== END 2023-12-17 08:59 | disposition home or self-care (01) ==
LOC: LAB 08:58
PROVIDERS: ATTEND Internal Medicine
DX: I10 Essential (primary) hypertension (principal)
CPT/HCPCS: 36415; 80048

== ENCOUNTER 2024-01-12 08:41 | Outpatient (CLI) | payer MEDICARE, OTHER ==
[2024-01-12 09:48] LABS: CALCIUM 9.6 mg/dL (8.5-10.3); CREATININE 0.8 mg/dL (0.6-1.3); POTASSIUM 3.7 mmol/L (3.5-4.5)
== END 2024-01-12 08:42 | disposition home or self-care (01) ==
LOC: LAB 08:41
PROVIDERS: ATTEND Internal Medicine
DX: I48.0 Paroxysmal atrial fibrillation (principal)
CPT/HCPCS: 36415; 80048

== ENCOUNTER 2024-02-17 14:23 | Outpatient (CLI) | payer MEDICARE, OTHER ==
[2024-02-17 14:55] LABS: CALCIUM 9.5 mg/dL (8.5-10.3); CREATININE 0.7 mg/dL (0.6-1.3); POTASSIUM 3.6 mmol/L (3.5-4.5)
== END 2024-02-17 14:24 | disposition home or self-care (01) ==
LOC: LAB 14:23
PROVIDERS: ATTEND Internal Medicine
DX: I48.0 Paroxysmal atrial fibrillation (principal)
CPT/HCPCS: 36415; 80048

== ENCOUNTER 2024-03-08 08:06 | Outpatient (CLI) | payer MEDICARE, OTHER ==
[2024-03-08 08:32] LABS: CALCIUM 9.7 mg/dL (8.5-10.3); CREATININE 0.8 mg/dL (0.6-1.3); POTASSIUM 3.6 mmol/L (3.5-4.5)
== END 2024-03-08 08:07 | disposition home or self-care (01) ==
LOC: LAB 08:06
PROVIDERS: ATTEND Internal Medicine
DX: I10 Essential (primary) hypertension (principal); E87.6 Hypokalemia
CPT/HCPCS: 36415; 80048

== ENCOUNTER 2024-03-23 07:51 | Outpatient (CLI) | payer MEDICARE, OTHER ==
[2024-03-23 08:25] LABS: CALCIUM 9.8 mg/dL (8.5-10.3); CREATININE 0.8 mg/dL (0.6-1.3)
== END 2024-03-23 07:52 | disposition home or self-care (01) ==
LOC: LAB 07:51
PROVIDERS: ATTEND Internal Medicine
DX: I48.0 Paroxysmal atrial fibrillation (principal)
CPT/HCPCS: 36415; 80048